=== PATIENT | female | born 1975 | race Caucasian/White ===

== ENCOUNTER 2020-09-03 17:00 | Outpatient (RCR) | payer OTHER, SELFPAY ==
--- NOTE | 2020-11-12 08:55 | MHC.PT.DC ---
[facility] [place] [facility] [place] [facility] [place] Office [address] Griselda Martinez [address] [phone] F: [phone] F: [phone] F: [phone] F: [phone] Physical Therapy Discharge Report Diagnosis: R sh pain Date of Surgery: Date of Evaluation: 07/24/20 Date of Discharge: Treatments to Date: 9 Cancellations to Date: 0 No Shows to Date: 0 Discharge Status: Discharge Summary: Pt elected to stop treatment at this time. She was receiving traction and reportedly feeling improvement in s/s. Electronically signed by: Toño Quezada PT Please sign and return to therapist. Thank you for your referral.
== END 2020-11-12 08:56 | disposition home or self-care (01) ==
LOC: HO.PTCHIC 17:00
PROVIDERS: PCP Internal Medicine; Visit Provider Internal Medicine
DX: M25.511 Pain in right shoulder (principal)
CPT/HCPCS: 97012; 97014; 97110; 97140

== ENCOUNTER 2020-10-17 15:52 | Outpatient (REF) | payer OTHER, SELFPAY ==
--- NOTE | 2020-10-17 17:04 | XR_ITS ---
EXAMINATION: XR THORACIC SPINE CLINICAL INFORMATION: There is sludge. COMPARISON: None TECHNIQUE: 3 views of the thoracic spine were obtained. FINDINGS: There is maintained in thoracic kyphosis. The vertebral heights, alignment and disc heights are normal. There is minimal scoliosis of dorsal spine. No lytic process seen. The paravertebral soft tissues are normal. XR/XR thoracic spine 3V IMPRESSION: Mild dorsal spine scoliosis. No visible acute fracture, dislocation or lytic process seen.
[2020-10-23 09:47] LABS: HPV mRNA E6/E7 rflx Not Detected (Not Detected)
== END 2020-10-17 15:53 | disposition home or self-care (01) ==
LOC: HO.LAB 15:52
PROVIDERS: PCP Internal Medicine; Referring Provider Internal Medicine; Visit Provider Advanced Practice Midwife
DX: Z01.419 Encounter for gynecological examination (general) (routine) without abnormal findings (principal); M54.9 Dorsalgia, unspecified; Z20.2 Contact with and (suspected) exposure to infections with a predominantly sexual mode of transmission; Z12.31 Encounter for screening mammogram for malignant neoplasm of breast
CPT/HCPCS: 72072; 87624; 87625; 88142

== ENCOUNTER 2020-10-17 16:48 | Outpatient (REF) | payer OTHER, SELFPAY ==
[2020-10-17 18:54] LABS: Syphilis Screen Nonreactive (Nonreactive)
[2020-10-18 11:07] LABS: BV Int Neg Control Negative (Negative); BV Int Pos Control Positive (Positive)
[2020-10-20 03:34] LABS: HBsAGNum1 0.21 S/CO (0.00-0.99); HIV AB/AG Nonreactive (Nonreactive); HIV Num 1 0.07 S/CO (0.00-0.99); Hepatitis B Surface Antigen Negative (Negative)
[2020-10-20 03:47] LABS: ~HepC Num1 0.11 S/CO (0.00-0.79); ~Hepatitis C Antibody Nonreactive (Nonreactive)
[2020-11-14 22:15] LABS: CT PCR NOT DETECTED (Not Detect.); NG PCR NOT DETECTED (Not Detect.)
== END 2020-10-17 16:49 | disposition home or self-care (01) ==
LOC: HO.LAB 16:48
PROVIDERS: PCP Internal Medicine; Referring Provider Internal Medicine; Visit Provider Advanced Practice Midwife
DX: Z20.2 Contact with and (suspected) exposure to infections with a predominantly sexual mode of transmission (principal)
CPT/HCPCS: 86780; 86803; 87340; 87389; 87480; 87491; 87510; 87591; 87660

== ENCOUNTER 2021-05-02 07:58 | Outpatient (REF) | payer OTHER, SELFPAY ==
--- NOTE | ~2021-05-02 | MM_ITS ---
EXAMINATION: MM SCREENING DIGITAL BREAST TOMOSYNTHESIS, BILATERAL CLINICAL INFORMATION: Screening. Asymptomatic. Status post breast reduction surgery. The lifetime risk of breast cancer based on the Tyrer-Cuzick Model is 10.6%. COMPARISON: Mammography: November 24, 2019 and September 13, 2018 TECHNIQUE: Digital breast tomosynthesis is performed in both the craniocaudal and mediolateral oblique views along with computer-aided detection (CAD). Synthesized 2D images are generated from the tomosynthesis. FINDINGS: There are scattered areas of fibroglandular density (ACR BI-RADS breast composition Category b). There are no significant masses, abnormal calcifications, or other abnormalities. There are some regions of scarring related to previous reduction mammoplasty. MM/MM tomosynthesis screening BI IMPRESSION: There are no significant changes from prior study. ASSESSMENT: BI-RADS 2: Benign RECOMMENDATION: Routine annual mammography screening. This patient's information was entered into a reminder system with a target due date for their next mammogram.
== END 2021-05-02 07:59 | disposition home or self-care (01) ==
LOC: HO.MAMMO 07:58
PROVIDERS: Visit Provider Internal Medicine
DX: Z12.31 Encounter for screening mammogram for malignant neoplasm of breast (principal)
CPT/HCPCS: 77063; 77067

== ENCOUNTER 2021-09-13 14:02 | Emergency (ER) | payer OTHER, SELFPAY ==
[2021-09-13 14:52] VITALS: BP 133/70; PULSE 86; RESP 16; TEMP 37; O2SAT 98; BMI 41.9
--- NOTE | 2021-09-13 15:01 | ED_ITS ---
HPI - SOB/Dyspnea General Chief Complaint: Dyspnea Stated Complaint: covid +, diff breathing Time Seen by Provider: 09/13/21 14:26 Source: patient Mode of arrival: ambulatory Limitations: no limitations History of Present Illness HPI Narrative: patient with nasal congestion on 09/02 and then tested positive. Still with fatigue and weakness Context: recent illness Severity: mild Related Data Home Medications Medication Instructions Recorded Confirmed levonorgestrel 20 mcg/24 hours (7 INTRAUTERINE 08/06/20 02/23/21 yrs) 52 mg intrauterine device (Mirena) melatonin 3 mg tablet 3 mg PO BEDTIME PRN 08/06/20 02/23/21 meloxicam 15 mg tablet 15 mg PO DAILY 08/06/20 02/23/21 pantoprazole 40 mg tablet,delayed 40 mg PO DAILY 08/06/20 02/23/21 release sucralfate 100 mg/mL oral 10 ml PO BID 08/06/20 02/23/21 suspension Previous Rx's Medication Instructions Recorded cyclobenzaprine 10 mg tablet 10 mg PO BEDTIME PRN 30 Days #30 12/03/20 tab gabapentin 100 mg capsule 100 mg PO BEDTIME 30 Days #30 cap 12/03/20 lactulose 10 gram/15 mL (15 mL) 10 g (15 mL) PO BEDTIME PRN 30 12/03/20 oral solution Days #600 ml phentermine 37.5 mg tablet 37.5 mg PO DAILY 30 Days #30 tab 12/03/20 zolpidem 5 mg tablet 5 mg PO BEDTIME PRN 30 Days #30 tab 08/27/21 benzonatate 100 mg capsule 100 mg PO TID PRN 7 Days #21 cap 09/07/21 Allergies Allergy/AdvReac Type Severity Reaction Status Date / Time oxycodone [From PERCOCET] Allergy Intermediate itchy Verified 02/23/21 18:05 Review of Systems Constitutional: Constitutional: Reports no additional constitutional complaints Eyes: Eyes: Reports no additional eye complaints ENT: Denies dizziness Cardiovascular: Cardiovascular: Reports no additional cardiovascular complaints Respiratory: Respiratory: Reports as per HPI Gastrointestinal: Gastrointestinal: Reports no additional gastrointestinal complaints Genitourinary: Genitourinary: Reports no additional female genitourinary complaints Musculoskeletal: Musculoskeletal: Reports no additional musculoskeletal complaints Integumentary/Breasts: Skin/Breast: Denies rash Neurologic: Reports system reviewed and no additional complaints, except as documented, Denies dizziness and Denies Sensory deficit (Neuro) Psychiatric: Psychiatric: Denies anxiety [facility] Past Medical History Medical History Back pain Constipation by delayed colonic transit GERD (gastroesophageal reflux disease) Insomnia Morbid obesity Surgical History H/O bilateral breast reduction surgery History of abdominoplasty History of History of removal of laparoscopic gastric banding device History of surgery on arm Hx of laparoscopic gastric banding Family History Family History Father HIV (human immunodeficiency virus infection) Mother Osteoporosis Hypertension Sister Crohn disease Fibromyalgia Maternal Grandmother CVD (cardiovascular disease) Stroke Maternal Grandfather Diabetes Prostate cancer Social History Social History Alcohol intake: never Advance Directives: No Advance Directives Information Provided: No Gender identity: Female Physical Exam Vital Signs: Vital Signs: Last Vital Signs Temp 98.6 F 09/13/21 14:52 Pulse 86 09/13/21 14:52 Resp 16 09/13/21 14:52 BP 133/70 09/13/21 14:52 Pulse Ox 98 09/13/21 14:52 Body Mass Index 41.9 Const: General: healthy appearing Nutritional Appearance: average body habitus Orientation/consciousness: oriented to person and patient oriented x3 Limitations: no limitations HENMT: Head: Yes normal to inspection Ears: external ears normal General nose exam: Normal external nose present Mouth: Normal oral and palatal mucosa present and oropharynx normal Throat: Yes posterior oropharynx normal Eyes: General: appearance normal, both eyes and all related structures Neck: Other: supple Neck: Yes normal visual inspection Chest: Chest palpation & inspection: normal inspection of the chest Resp: Auscultation: clear to auscultation bilaterally Cardio: Jugular venous distension: no JVD Rate: regular rate Rhythm: regular rhythm Heart sounds: S1 normal heart sound present and S2 normal heart sound present GI: Inspection: Yes normal to inspection Palpation (GI): Soft to palpation, nontender and No hepatosplenomegaly present Auscultation: normal bowel sounds : General: Yes no CVA tenderness Back/Spine/Pelvis: Back: no CVA tenderness Skin: General skin exam: no rashes or lesions noted Neuro: General: oriented to person and patient oriented x3 Cranial nerves: Yes CN's II-XII intact bilaterally Motor exam (neuro): 5/5 motor strength present throughout Sensory Exam: No Sensory deficit (Neuro) Extrem: General: Yes normal to inspection Psych: Appearance: grossly normal Course Reevaluation(s) Reevaluation #1: patient looking well, normal vitals and O2 saturation will dc home Time: 15:12 Discharge Plan Discharge Clinical Impression: COVID-19 Patient Disposition: Home, Self-Care Instructions: COVID-19 (Coronavirus Disease 2019) (ED) Prescriptions: No Action zolpidem 5 mg tablet 5 mg PO BEDTIME PRN (Reason: sleep) 30 Days Qty: 30 RF: 0 benzonatate 100 mg capsule 100 mg PO TID PRN (Reason: cough) 7 Days Qty: 21 RF: 0 phentermine 37.5 mg tablet 37.5 mg PO DAILY 30 Days Qty: 30 RF: 0 gabapentin 100 mg capsule 100 mg PO BEDTIME 30 Days Qty: 30 RF: 3 cyclobenzaprine 10 mg tablet 10 mg PO BEDTIME PRN (Reason: muscle spasm) 30 Days Qty: 30 RF: 3 lactulose 10 gram/15 mL (15 mL) solution 10 g PO BEDTIME PRN (Reason: constipation) 30 Days Qty: 600 RF: 3 pantoprazole 40 mg tablet,delayed release (DR/EC) 40 mg PO DAILY RF: 0 sucralfate 100 mg/mL suspension 10 ml PO BID RF: 0 meloxicam 15 mg tablet 15 mg PO DAILY RF: 0 Mirena 20 mcg/24 hours (5 yrs) 52 mg intrauterine device intrauterine RF: 0 melatonin 3 mg tablet 3 mg PO BEDTIME PRNRF: 0 Referrals: Kusum Jenkins MD [Primary Care Provider] - 1 week
== END 2021-09-13 16:00 | disposition home or self-care (01) ==
PROVIDERS: Emergency Provider Emergency Medicine; PCP Internal Medicine
DX: U07.1 COVID-19 (principal)
CPT/HCPCS: 99283

== ENCOUNTER 2022-02-16 14:26 | Outpatient (REF) | payer OTHER, SELFPAY ==
[2022-02-17 03:13] LABS: CT PCR NOT DETECTED (Not Detect.); NG PCR NOT DETECTED (Not Detect.)
[2022-02-17 12:09] LABS: BV Int Neg Control Negative (Negative); BV Int Pos Control Positive (Positive)
== END 2022-02-16 14:27 | disposition home or self-care (01) ==
LOC: HO.LAB 14:26
PROVIDERS: PCP Internal Medicine; Visit Provider Advanced Practice Midwife
DX: Z01.411 Encounter for gynecological examination (general) (routine) with abnormal findings (principal); N89.8 Other specified noninflammatory disorders of vagina; R32 Unspecified urinary incontinence
CPT/HCPCS: 87480; 87491; 87510; 87591; 87660

== ENCOUNTER 2022-03-16 08:42 | Outpatient (REF) | payer OTHER, SELFPAY ==
[2022-03-16 09:04] LABS: MANUAL DIFF FLAG NO
[2022-03-16 09:53] LABS: Basophils Percent Auto 0.6 % (0-2); Eosinophils Absolute Auto 0.1 X10*3/uL (0.0-0.4); Eosinophils Percent Auto 3.8 % (0-4); Hematocrit 42.9 % (37.0-47.0); Hemoglobin 13.6 g/dl (12.0-16.0); Imm Gran Abs Auto 0.01 X10*3/uL (0.00-0.03); Imm Gran Pct Auto 0.3 % (0.0-0.4); Lymphocytes Percent Auto 29.6 % (20-40); Mean Corpuscular HGB Conc 31.7 g/dl (31.0-35.0); Mean Corpuscular Hemoglobin 25.5 pg (27.0-33.0); Mean Corpuscular Volume 80.5 fL (80.0-98.0); Mean Platelet Volume 10.4 fL (9.4-12.3); Monocytes Absolute Auto 0.7 X10*3/uL (0.1-1.2); Monocytes Percent Auto 19.2 % (2-11); Neutrophils Absolute Auto 1.6 x10*3/uL (2.0-8.3); Neutrophils Percent Auto 46.5 % (45-73); Platelet Count 217 X10*3/uL (160-400); Red Blood Count 5.33 X10*6/uL (4.20-5.50); Red Cell Distribution Width 13.8 % (11.0-16.0); White Blood Count 3.4 X10*3/uL (4.8-10.8)
[2022-03-16 10:13] LABS: Alanine Aminotransferase 14 U/L (0-31); Albumin Level 4.1 g/dL (3.5-5.0); Alkaline Phosphatase 67 U/L (39-117); Anion Gap 10 (12-20); Aspartate Amino Transferase 14 U/L (5-31); Bilirubin Total 0.4 mg/dL (0.0-1.0); Blood Urea Nitrogen 15 mg/dL (9-16); Carbon Dioxide 28 mmol/L (22-29); Chloride 105 mmol/L (96-108); Cholesterol 153 mg/dL; Estimated Glomerular Filt Rate > 60; Glucose Fasting 105 mg/dL (60-99); HDL Cholesterol 37 mg/dL; LDL Cholesterol Calculated 104 mg/dl; Potassium 4.4 mmol/L (3.3-5.1); Sodium 139 mmol/L (135-145); Total Protein 7.1 g/dL (6.5-8.0); Triglycerides 64 mg/dL
[2022-03-22 13:57] LABS: Vitamin D 25-OH, D2 <4 ng/mL; Vitamin D 25-OH, D3 16 ng/mL; Vitamin D 25-OH, Total 16 ng/mL (30-100)
== END 2022-03-16 08:43 | disposition home or self-care (01) ==
LOC: HO.LAB 08:42
PROVIDERS: PCP Internal Medicine; Visit Provider Internal Medicine
DX: E66.01 Morbid (severe) obesity due to excess calories (principal); E78.5 Hyperlipidemia, unspecified; E55.9 Vitamin D deficiency, unspecified; D64.9 Anemia, unspecified
CPT/HCPCS: 36415; 80053; 80061; 82306; 84443; 85025

== ENCOUNTER 2022-06-19 08:16 | Outpatient (REF) | payer OTHER, SELFPAY ==
[2022-06-19 08:29] LABS: MANUAL DIFF FLAG NO
[2022-06-19 09:13] LABS: Basophils Percent Auto 0.6 % (0-2); Eosinophils Absolute Auto 0.2 X10*3/uL (0.0-0.4); Eosinophils Percent Auto 3.1 % (0-4); Hematocrit 41.1 % (37.0-47.0); Imm Gran Abs Auto 0.02 X10*3/uL (0.00-0.03); Imm Gran Pct Auto 0.4 % (0.0-0.4); Lymphocytes Absolute Auto 1.4 X10*3/uL (1.2-4.9); Lymphocytes Percent Auto 27.7 % (20-40); Mean Corpuscular HGB Conc 31.6 g/dl (31.0-35.0); Mean Corpuscular Hemoglobin 25.4 pg (27.0-33.0); Mean Corpuscular Volume 80.3 fL (80.0-98.0); Mean Platelet Volume 10.5 fL (9.4-12.3); Monocytes Absolute Auto 0.5 X10*3/uL (0.1-1.2); Monocytes Percent Auto 9.4 % (2-11); Neutrophils Percent Auto 58.8 % (45-73); Platelet Count 228 X10*3/uL (160-400); Red Blood Count 5.12 X10*6/uL (4.20-5.50); Red Cell Distribution Width 13.8 % (11.0-16.0); White Blood Count 5.1 X10*3/uL (4.8-10.8)
[2022-06-19 10:11] LABS: Free T4 (Free Thyroxine) 0.95 ng/dL (0.71-1.85); Thyroid Stimulating Hormone 4.43 uIU/mL (0.32-4.0)
[2022-06-21 17:12] LABS: Thyroglobulin Antibodies <1 IU/mL (< or = 1); Thyroid Peroxidase Antibodies 1 IU/mL (<9)
== END 2022-06-19 08:17 | disposition home or self-care (01) ==
LOC: HO.LAB 08:16
PROVIDERS: PCP Internal Medicine; Visit Provider Internal Medicine
DX: R79.89 Other specified abnormal findings of blood chemistry (principal); D64.9 Anemia, unspecified
CPT/HCPCS: 36415; 84439; 84443; 85025; 86376; 86800

== ENCOUNTER → 2022-09-14 07:23 | Outpatient (BNVA) | payer OTHER, SELFPAY | PROVIDERS: PCP Internal Medicine; Visit Provider Physician Assistant | DX: Z12.11 Encounter for screening for malignant neoplasm of colon (principal); K21.9 Gastro-esophageal reflux disease without esophagitis; K59.09 Other constipation | CPT/HCPCS: 99202; 99212 ==

== ENCOUNTER 2022-11-30 16:48 | Outpatient (REF) | payer OTHER, SELFPAY ==
[2022-11-30 18:37] LABS: Thyroid Stimulating Hormone 3.72 uIU/mL (0.32-4.0); Vitamin D 25-OH Total 15.7 ng/mL (>30)
== END 2022-11-30 16:49 | disposition home or self-care (01) ==
LOC: HO.LAB 16:48
PROVIDERS: PCP Internal Medicine; Visit Provider Internal Medicine
DX: E03.9 Hypothyroidism, unspecified (principal); E55.9 Vitamin D deficiency, unspecified
CPT/HCPCS: 36415; 82306; 84443

== ENCOUNTER 2022-12-18 07:37 | Outpatient (REF) | payer OTHER, SELFPAY ==
--- NOTE | ~2022-12-18 | MM_ITS ---
EXAMINATION: MM SCREENING DIGITAL BREAST TOMOSYNTHESIS, BILATERAL CLINICAL INFORMATION: Screening. Asymptomatic. Remote prior reduction mammoplasty, 2010. The lifetime risk of breast cancer based on the Tyrer-Cuzick Model is 12%. COMPARISON: Mammography: 05/02/2021, 11/24/2019, 09/13/2018 TECHNIQUE: Digital breast tomosynthesis is performed in both the craniocaudal and mediolateral oblique views along with computer-aided detection (CAD). Synthesized 2D images are generated from the tomosynthesis. FINDINGS: There are scattered areas of fibroglandular density (ACR BI-RADS breast composition Category b). There is fine fibronodular parenchymal pattern with some minor scarring consistent with the remote prior reduction mammoplasty. There are no abnormal calcifications. No interval architectural abnormality. There is subtle interval dominant nodular density central inner left breast mid depth. Patient will be recalled for additional imaging. MM/MM tomosynthesis screening BI IMPRESSION: Left: -Subtle interval dominant nodularity density central inner left breast mid depth. Right: -No mammographic evidence of malignancy. ASSESSMENT: BI-RADS 0: Incomplete - Need Additional Imaging Evaluation RECOMMENDATION: 1. Additional views of the left breast (spot CC, spot ML). 2. Targeted ultrasound if warranted after review of the additional views. 3. Radiology department staff will contact the patient for additional imaging. This patient's information was entered into a reminder system with a target due date for their next mammogram.
== END 2022-12-18 07:38 | disposition home or self-care (01) ==
LOC: HO.MAMMO 07:37
PROVIDERS: PCP Internal Medicine; Visit Provider Internal Medicine
DX: Z12.31 Encounter for screening mammogram for malignant neoplasm of breast (principal)
CPT/HCPCS: 77063; 77067

== ENCOUNTER 2022-12-29 08:17 | Outpatient (REF) | payer OTHER, SELFPAY ==
--- NOTE | ~2022-12-29 | MM_ITS ---
EXAMINATION: MM DIAGNOSTIC DIGITAL BREAST TOMOSYNTHESIS, LEFT US TARGETED BREAST, LEFT CLINICAL INFORMATION: New lobulated density about the inferomedial aspect of the left breast. History of breast reduction surgery. COMPARISON: Mammography: 12/18/2022 and studies dating back to September 13, 2018. TECHNIQUE: Digital breast tomosynthesis is performed. 2D images are generated from the tomosynthesis. The following views are obtained: 90 degree mediolateral view and spot compression views in mediolateral oblique projection and craniocaudal views. Targeted left breast ultrasound. FINDINGS: There are scattered areas of fibroglandular density (ACR BI-RADS breast composition Category b). Additional films demonstrate persistence of the lobular 10 x 7 mm density lying approximately 6 cm from the nipple. No spiculation is noted. No microcalcifications are appreciated. Targeted left breast ultrasound by the technologist and myself did not demonstrate any abnormal cystic or solid mass. No region of abnormal distal sound shadowing was appreciated. No edematous change within the parenchyma was seen. Results are discussed with the patient at time of visit. Possibility of 6 month follow-up study versus stereotactic core biopsy was discussed with the patient preferring to have the lesion biopsied at this point. The above recommendation was called to referring provider's office by the breast center patient navigator speaking to Kristyn. MM/MM tomosynthesis added views L IMPRESSION: Persistence of left breast density for which stereotactic core biopsy is recommended. ASSESSMENT: BI-RADS 4: Suspicious (subcategory 4A: Low suspicion for malignancy) RECOMMENDATION: Stereotactic core biopsy. This patient's information was entered into a reminder system with a target due date for their next mammogram.
== END 2022-12-29 08:18 | disposition home or self-care (01) ==
LOC: HO.MAMMO 08:17
PROVIDERS: PCP Internal Medicine; Visit Provider Internal Medicine
DX: R92.2 Inconclusive mammogram (principal); N64.89 Other specified disorders of breast
CPT/HCPCS: 76642; 77061; 77065

== ENCOUNTER 2023-01-04 09:02 | Outpatient (REF) | payer OTHER, SELFPAY ==
--- NOTE | ~2023-01-04 | MM_ITS ---
EXAMINATION: STEREOTACTIC TOMOSYNTHESIS-GUIDED VACUUM-ASSISTED BREAST BIOPSY, LEFT SPECIMEN RADIOGRAPH, LEFT POST PROCEDURE DIGITAL MAMMOGRAM, LEFT CLINICAL INFORMATION: Subcentimeter macrolobulated nodule central 8:00 left breast mid depth. No ultrasound correlate. COMPARISON: Mammography 12/29/2022, 12/18/2022, 11/24/2019; left breast ultrasound 12/29/2022. TECHNIQUE/PROCEDURE: Informed consent was obtained from the patient after discussion of the benefits, risks, and alternatives to biopsy today. Patient appeared to understand. Gave opportunity for questions. Patient signed consent form. BIOPSY TABLE: SiteMinder Affirm Prone Biopsy System. LESION: -Small macrolobulated nodule central 8:00 left breast mid depth. Differential considerations include fibroadenoma, PASH, apocrine metaplasia, intramammary node, other. LOCAL ANESTHESIA: 10 mL 1% lidocaine; 10 mL 1% lidocaine with epinephrine. DERMATOTOMY: Single skin homer dermatotomy performed. NEEDLE: ENDYMION Eviva 9-gauge vacuum assisted core biopsy device. APPROACH: Medial Lateral. TARGETING: Combination of digital breast tomosynthesis and stereotactic digital mammography used for targeting. CORES: 7. CLIP: Suros SecurMark Cylinder-shaped marker. SPECIMEN RADIOGRAPH: Specimen radiograph is taken in separate room using digital mammography. There are scattered parenchymal densities within the cores. POST PROCEDURE UNILATERAL DIGITAL MAMMOGRAM: The post biopsy mammogram is performed in separate room using separate digital mammography equipment from the biopsy procedure. CC and ML views are obtained. There are scattered areas of fibroglandular density (breast composition category: b). The clip marker is in expected position. No gross hematoma. The patient tolerated the procedure well. No immediate complications. Home instructions reviewed with the patient. Final pathology results are pending. MM/MM stereotactic biopsy LT IMPRESSION: 1. Digital tomosynthesis-guided core biopsy left breast with clip placement. 2. Specimen radiograph taken and post procedure mammogram. There is satisfactory positioning of the biopsy clip. 3. Final pathology results pending. An addendum report will be issued.
[2023-01-04] MEDS: Sodium Bicarbonate 8.4% 50 MEQ/50 ML VIAL SUBCUT (10:52)
[2023-01-04] MEDS: Lidocaine HCl 1 % 20 ML VIAL 10 ML SUBCUT (10:54)
[2023-01-04] MEDS: Lidocaine HCl 1% PF/Epi 1:200,000 30 ML VIAL 10 ML SUBCUT (10:56)
== END 2023-01-04 09:03 | disposition home or self-care (01) ==
LOC: HO.MAMMO 09:02
PROVIDERS: PCP Internal Medicine; Visit Provider Surgery
DX: R92.8 Other abnormal and inconclusive findings on diagnostic imaging of breast (principal)
CPT/HCPCS: 19081; 88305; 99202; A4648

== ENCOUNTER → 2023-01-11 14:13 | Outpatient (BNVA) | payer OTHER, SELFPAY | PROVIDERS: PCP Internal Medicine; Referring Provider Internal Medicine; Visit Provider Surgery | DX: N64.89 Other specified disorders of breast (principal) | CPT/HCPCS: 99212 ==

== ENCOUNTER 2023-01-19 06:59 | Day surgery (SDC) | payer OTHER, SELFPAY ==
[2023-01-13 15:02] VITALS: BMI 48.1
--- NOTE | 2023-01-18 13:01 | P.CONAN_ITS ---
Documented by User: Linn Mccracken NP 01/18/23 13:02 HPI - Anesthesia Eval Consult details Narrative: 47yo F for Left Breast Lumpectomy/Needle Loc PMFSH Active Problems Active Problems: All Active Problems (Updated 01/13/23 @ 14:57 by Celeste Mederos, RN) Potential exposure to STD (Acute) Screening for breast cancer (Acute) Well woman exam with routine gynecological exam (Acute) COVID-19 (Acute) Encounter for annual routine gynecological examination (Acute) Vaginal odor (Acute) Urinary incontinence (Acute) Hypothyroidism (Acute) Family history of cancer (Acute) Abdominal pain (Acute) Chronic constipation (Acute) Encounter for screening colonoscopy (Acute) Hypovitaminosis D (Acute) Abnormal mammogram of left breast (Acute) Radial scar of left breast (Acute) Hypovitaminosis D (Acute) Moderate major depression (Acute) Memory loss (Acute) Elevated TSH (Acute) Shortness of breath (Acute) Morbid obesity (Acute) Constipation by delayed colonic transit (Acute) GERD (gastroesophageal reflux disease) (Acute) Insomnia (Acute) Back pain (Acute) Past Medical History Medical History (Updated 01/13/23 @ 14:57 by Celeste Mederos, RN) Back pain Constipation by delayed colonic transit Elevated TSH GERD (gastroesophageal reflux disease) Hypothyroid Hypovitaminosis D Insomnia Memory loss Moderate major depression Morbid obesity Shortness of breath Snores Family History Family History Father HIV (human immunodeficiency virus infection) Mother Osteoporosis Hypertension Sister Crohn disease Fibromyalgia Maternal Grandmother CVD (cardiovascular disease) Stroke Maternal Grandfather Diabetes Prostate cancer Colon cancer Maternal Aunt History of breast cancer Maternal Aunt Endometrial cancer Maternal Uncle Pancreatic cancer Surgical History Surgical History (Updated 01/13/23 @ 14:43 by Celeste Mederos, RN) H/O bilateral breast reduction surgery History of abdominoplasty History of History of esophagogastroduodenoscopy (EGD) History of release of tendon History of removal of laparoscopic gastric banding device Hx of laparoscopic gastric banding Social History Social History Housing: House Are you a primary skin care consultant to a significant other at home: No Do you presently have visiting nurse or other home services: No Alcohol intake: current Alcohol type: beer and hard liquor Patient Tobacco Use Status: Former Tobacco user Quit Date: 2009 Tobacco use type: Cigarette e-Cigarette/Vaping Use: Never Used Second Hand Smoke Exposure: No Use of substances other than those prescribed or required for medical reasons: No Have you been hit, kicked, punched, or otherwise hurt by someone within the past year? If so, by whom?: No Are you DNR?: No Advance Directives: No Advance Directives Information Provided: Yes Advance Directives on File: No Recently lost weight without trying: No Eating poorly because of decreased appetite: No Nutrition Risks: No Nutritional Risk service: No Current occupational status: employed Current occupational exposures/hazards: No Gender identity: Female Cognitive needs: No Hearing needs: No Vision needs: Yes Meds Allergies Allergy/AdvReac Type Severity Reaction Status Date / Time oxycodone [From PERCOCET] Allergy Intermediate itchy Verified 01/11/23 14:25 Home Medications Medication Instructions Recorded Confirmed Last Taken Type levonorgestrel 20 mcg/24 hours (8 intrauterine 08/06/20 01/11/23 Unknown History yrs) 52 mg intrauterine device (Mirena) melatonin 3 mg tablet 3 mg PO BEDTIME PRN Sleep 08/06/20 01/13/23 Unknown History Exam Exam Date and Time: January 18, 2023 1301 Height,Weight and Vital Signs: Height 5 ft 5 in Weight 131.088 kg Assessment and Plan Assessment Anesthesia Assessment: Chart Reviewed Documented by User: Chloe Mckeon MD 01/19/23 10:38 [facility] Past Medical History Medical History (Updated 01/13/23 @ 14:57 by Celeste Mederos RN) Back pain Constipation by delayed colonic transit Elevated TSH GERD (gastroesophageal reflux disease) Hypothyroid Hypovitaminosis D Insomnia Memory loss Moderate major depression Morbid obesity Shortness of breath Snores Patient : No ( Menopausal / No priod for greater than one year) Family History Family History Father HIV (human immunodeficiency virus infection) Mother Osteoporosis Hypertension Sister Crohn disease Fibromyalgia Maternal Grandmother CVD (cardiovascular disease) Stroke Maternal Grandfather Diabetes Prostate cancer Colon cancer Maternal Aunt History of breast cancer Maternal Aunt Endometrial cancer Maternal Uncle Pancreatic cancer Family history of problems with anesthesia: No Surgical History Surgical History (Updated 01/13/23 @ 14:43 by Celeste Mederos RN) H/O bilateral breast reduction surgery History of abdominoplasty History of History of esophagogastroduodenoscopy (EGD) History of release of tendon History of removal of laparoscopic gastric banding device Hx of laparoscopic gastric banding History of Problems with Anesthesia: No Social History Social History Housing: House Are you a primary skin care consultant to a significant other at home: No Do you presently have visiting nurse or other home services: No Alcohol intake: current Alcohol type: beer and hard liquor Patient Tobacco Use Status: Former Tobacco user Quit Date: 2009 Tobacco use type: Cigarette e-Cigarette/Vaping Use: Never Used Second Hand Smoke Exposure: No Use of substances other than those prescribed or required for medical reasons: No Have you been hit, kicked, punched, or otherwise hurt by someone within the past year? If so, by whom?: No Are you DNR?: No Advance Directives: No Advance Directives Information Provided: Yes Advance Directives on File: No Recently lost weight without trying: No Eating poorly because of decreased appetite: No Nutrition Risks: No Nutritional Risk service: No Current occupational status: employed Current occupational exposures/hazards: No Gender identity: Female Cognitive needs: No Hearing needs: No Vision needs: Yes Meds Allergies Allergy/AdvReac Type Severity Reaction Status Date / Time oxycodone [From PERCOCET] Allergy Intermediate itchy Verified 01/11/23 14:25 Home Medications Medication Instructions Recorded Confirmed Last Taken Type levonorgestrel 20 mcg/24 hours (8 intrauterine 08/06/20 01/11/23 Unknown History yrs) 52 mg intrauterine device (Mirena) melatonin 3 mg tablet 3 mg PO BEDTIME PRN Sleep 08/06/20 01/13/23 Unknown History Exam Airway Mallampati Class: II TM Dist: >3cm Neck ROM: Full Loose/Missing/Broken Teeth: No Heart: rr Lungs: cta Assessment and Plan Final Anesthetic Review Family History of Problems with Anesthesia: No History of Problems with Anesthesia: No NPO: Yes ASA Class: III Final Preanesthetic Review: No Changes in Pt Med Stat, Meds/Allgs Chart Reviewed, Consent Obtained/Reviewed and Anes Risks/Benef Reviewed Patient Risk: Intermediate Procedure Risk: Low Anesthetic Plan Anesthetic Plan: GA Disposition: Standard PACU
--- NOTE | ~2023-01-19 | MM_ITS ---
EXAMINATION: MM MAMMOGRAM GUIDED NEEDLE LOCALIZATION BREAST, LEFT MM NEEDLE LOCALIZATION SPECIMEN FROM THE LEFT BREAST CLINICAL INFORMATION: Left breast radial scar COMPARISON: January 04, 2023 and studies dating back to May 02, 2021 TECHNIQUE NEEDLE LOC: Proper informed consent is obtained from the patient after discussion of the procedure, potential risks and complications, and alternatives including declining the procedure today. Patient was given an opportunity for questions. The patient appeared to understand. The patient consented to the procedure and signed the consent form. GUIDANCE: Digital mammography. APPROACH: Cranio-caudal. TARGET: Clip. ANESTHESIA: lidocaine 1%: 3 mL. LOCALIZATION MARKER: [place] [employer]. The skin is prepped and local anesthesia administered. The needle is positioned and position assessed with mammography. The wire is hooked into position. [place] needle protector placed. The patient tolerated the procedure well and had no immediate complication. TECHNIQUE SPECIMEN RADIOGRAPH: Imaging of the excised specimen is performed using digital mammography in 2 views. FINDINGS SPECIMEN RADIOGRAPH: The specimen shows the needle and hookwire are delivered intact. The biopsy clip is within the specimen.. Results were called to Dr. Eliceo Montalvo in the operating room at the time of imaging. MM/MM needle loc LT IMPRESSION: 1. Status post left breast needle localization with wire hooked into position. 2. Post operative specimen radiograph obtained.
[2023-01-19 07:28] VITALS: BP 116/68; PULSE 87; RESP 16; TEMP 37.1; O2SAT 97
--- NOTE | 2023-01-19 07:29 | MHC.SHP ---
Pre-Procedural Eval Section A Date of Service: 01/19/23 The patient is an INPATIENT: No Changes since office visit: Yes Patient answered all questions; No Cold of Flu in the past 2 weeks, No New Medical Problems and No Changes in Medication The History & Physical has been completed within 30 days and I have reviewed it.: Yes Section B Chief Complaint: Other specified disorders of breast Allergies: Allergies Allergy/AdvReac Type Severity Reaction Status Date / Time oxycodone [From PERCOCET] Allergy Intermediate itchy Verified 01/11/23 14:25 Plan Diagnosis/Plan: Unchanged I have reviewed the history and physical and performed a pertinent physical examination on my patient. No changes have occurred unless specified. Time Spent With Patient Time: Total time managing care of this patient today ____ minutes.
[2023-01-19 07:30] LABS: UPreg QC Valid YES; Urine Pregnancy NEGATIVE (NEGATIVE)
[2023-01-19] MEDS: Lactated Ringers 1,000 ML 100 ML IVCONT (09:26)
--- NOTE | 2023-01-19 10:46 | W.PM.OPN ---
Operative Note Operative Note Date of Service: 01/19/23 Narrative: Preoperative diagnosis: Radial scar left breast Postoperative diagnosis: Same Procedure: left breast lumpectomy with needle localization Surgeon: Eliceo Montalvo MD Wrong Address Clerk: Danae Arita PA-C Anesthesia: general LMA Indications for procedure: 47-year-old female patient presenting with a recent abnormal mammogram s/p core biopsy findings of radial scar. She presents today for wider excision to assure complete removal. Operative findings: Specimen x-ray confirms localizing clip and wire within the specimen. Specimen: Left breast lumpectomy Estimated blood loss: less than 2 mL Complications: none Procedure details: patient was brought to the OR placed in a supine position. After administering general anesthesia the patient's left breast was prepped with ChloraPrep and draped in a sterile fashion. A surgical time-out was called and the consent confirmed. Patient received preoperative antibiotics and Venodyne boots were in place. Local anesthesia consisting of 0.5% Sensorcaine with epinephrine was then infiltrated circumferentially along the lower inner quadrant at the nipple-areolar complex and along the localizing needle in the lower inner quadrant. A curvilinear incision was made at the margin of the areola from approximately 9-6 o'clock. This was carried out through subcutaneous tissue. Superior inferior skin flaps were then created. Using the localizing needle as a guide, electrocautery was used to dissect along the breast tissue around the localizing needle beginning at the medial margin working along the inferior margin, lateral margin, superior margin and finally posterior margin. The lesion was then brought up through the incision and the wire cut. Specimen was removed and sent to pathology for further examination. Margins were marked with a long suture on the lateral margin, short suture on the superior margin, and loop suture on the deep margin. Hemostasis was then assured using electrocautery. Wounds were irrigated with saline solution and suctioned dry. Deep breast tissue was then reapproximated with 3-0 Polysorb sutures. Superficial breast tissue and dermis were then reapproximated with 3-0 Polysorb sutures. Skin was closed using a running subcuticular 4-0 Polysorb suture. Steri-Strips, 2 x 2 gauze and Tegaderm were then applied. The patient tolerated the procedure well. Sponge, instrument, and needle counts reported as correct. Patient was transferred to PACU in stable condition.
[2023-01-19 10:58] VITALS: BP 88/39; PULSE 90; RESP 18; TEMP 36.3; O2SAT 94
[2023-01-19 11:03] VITALS: BP 97/46; PULSE 87; RESP 17; O2SAT 94
[2023-01-19 11:09] VITALS: BP 91/55; PULSE 88; RESP 17; O2SAT 95
[2023-01-19 11:13] VITALS: BP 96/51; PULSE 76; RESP 16; O2SAT 95
[2023-01-19 11:30] VITALS: BP 102/39; PULSE 77; RESP 16; TEMP 36.3; O2SAT 97
[2023-01-19] MEDS: Lidocaine HCl 1 % 20 ML VIAL 6 ML SUBCUT (12:04)
[2023-01-19] MEDS: Sodium Bicarbonate 8.4% 50 MEQ/50 ML VIAL SUBCUT (12:06)
== END 2023-01-19 11:55 | disposition home or self-care (01) ==
PROVIDERS: Nurse Practitioner; PCP Internal Medicine; Visit Provider Surgery
PROC: (CPT 19301; principal; 2023-01-19 09:10)
DX: N64.89 Other specified disorders of breast (principal); N62 Hypertrophy of breast; N60.12 Diffuse cystic mastopathy of left breast; E66.01 Morbid (severe) obesity due to excess calories; Z68.42 Body mass index [BMI] 45.0-49.9, adult; Z79.899 Other long term (current) drug therapy; Z88.8 Allergy status to other drugs, medicaments and biological substances; Z98.890 Other specified postprocedural states; Z98.84 Bariatric surgery status; Z87.891 Personal history of nicotine dependence
CPT/HCPCS: 19301; 19281; 81025; 88307; 88329; A4648; J0690; J2250; J2405; J3010

== ENCOUNTER 2023-01-20 10:59 | Outpatient (REF) | payer OTHER, SELFPAY ==
[2023-01-20 12:48] LABS: Alanine Aminotransferase 15 U/L (0-31); Albumin Level 4.2 g/dL (3.5-5.0); Alkaline Phosphatase 83 U/L (39-117); Anion Gap 12 (12-20); Aspartate Amino Transferase 16 U/L (5-31); Bilirubin Total 0.5 mg/dL (0.0-1.0); Blood Urea Nitrogen 14 mg/dL (9-16); Calcium 8.7 mg/dL (8.4-10.2); Carbon Dioxide 29 mmol/L (22-29); Chloride 105 mmol/L (96-108); Cholesterol 143 mg/dL; Estimated Glomerular Filt Rate > 60; Glucose Fasting 96 mg/dL (60-99); HDL Cholesterol 31 mg/dL; LDL Cholesterol Calculated 98 mg/dl; Potassium 4.6 mmol/L (3.3-5.1); Sodium 141 mmol/L (135-145); Total Protein 7.2 g/dL (6.5-8.0); Triglycerides 73 mg/dL
== END 2023-01-20 11:00 | disposition home or self-care (01) ==
LOC: HO.LAB 10:59
PROVIDERS: PCP Internal Medicine; Visit Provider Internal Medicine
DX: E66.01 Morbid (severe) obesity due to excess calories (principal); E78.5 Hyperlipidemia, unspecified
CPT/HCPCS: 36415; 80053; 80061

== ENCOUNTER → 2023-01-28 09:30 | Outpatient (BNVA) | payer OTHER, SELFPAY | PROVIDERS: PCP Internal Medicine; Visit Provider Surgery | DX: N64.89 Other specified disorders of breast (principal) | CPT/HCPCS: 99212 ==

== ENCOUNTER 2023-02-04 09:55 | Day surgery (SDC) | payer OTHER, SELFPAY ==
[2023-02-01 10:51] VITALS: BMI 47.3
--- NOTE | 2023-02-03 12:33 | P.CONAN_ITS ---
Documented by User: Linn Mccracken NP 02/03/23 12:35 HPI - Anesthesia Eval Consult details Narrative: 48yo F for Upper Endoscopy and Colonoscopy s/p left breast lumpectomy 01/2023 with MAC PMFSH Active Problems Active Problems: All Active Problems (Updated 02/02/23 @ 13:35 by Kusum Ribeiro MD) Physical exam (Acute) Potential exposure to STD (Acute) Screening for breast cancer (Acute) Well woman exam with routine gynecological exam (Acute) COVID-19 (Acute) Encounter for annual routine gynecological examination (Acute) Vaginal odor (Acute) Urinary incontinence (Acute) Hypothyroidism (Acute) Family history of cancer (Acute) Abdominal pain (Acute) Chronic constipation (Acute) Encounter for screening colonoscopy (Acute) Hypovitaminosis D (Acute) Abnormal mammogram of left breast (Acute) Radial scar of left breast (Acute) Hypovitaminosis D (Acute) Moderate major depression (Acute) Memory loss (Acute) Elevated TSH (Acute) Shortness of breath (Acute) Morbid obesity (Acute) Constipation by delayed colonic transit (Acute) GERD (gastroesophageal reflux disease) (Acute) Insomnia (Acute) Back pain (Acute) Past Medical History Medical History (Updated 02/02/23 @ 13:35 by Kusum Ribeiro MD) Back pain Constipation by delayed colonic transit Elevated TSH GERD (gastroesophageal reflux disease) Hypothyroid Hypovitaminosis D Insomnia Memory loss Moderate major depression Morbid obesity Shortness of breath Snores Family History Family History Father HIV (human immunodeficiency virus infection) Mother Osteoporosis Hypertension Sister Crohn disease Fibromyalgia Maternal Grandmother CVD (cardiovascular disease) Stroke Maternal Grandfather Diabetes Prostate cancer Colon cancer Maternal Aunt History of breast cancer Maternal Aunt Endometrial cancer Maternal Uncle Pancreatic cancer Family history of problems with anesthesia: No Surgical History Surgical History (Updated 02/02/23 @ 13:25 by Kusum Ribeiro MD) H/O bilateral breast reduction surgery History of abdominoplasty History of History of esophagogastroduodenoscopy (EGD) History of release of tendon History of removal of laparoscopic gastric banding device Hx of laparoscopic gastric banding S/P lumpectomy, left breast History of Problems with Anesthesia: No Social History Social History Housing: House Are you a primary care services manager to a significant other at home: No Do you presently have visiting nurse or other home services: No Alcohol intake: current Alcohol type: beer and hard liquor Patient Tobacco Use Status: Former Tobacco user Quit Date: 2009 Tobacco use type: Cigarette e-Cigarette/Vaping Use: Never Used Second Hand Smoke Exposure: No Use of substances other than those prescribed or required for medical reasons: No Are you DNR?: No Advance Directives: No Advance Directives Information Provided: Yes Recently lost weight without trying: No Nutrition Risks: No Nutritional Risk service: No Current occupational status: employed Current occupational exposures/hazards: No Gender identity: Female Cognitive needs: No Hearing needs: No Vision needs: Yes Meds Allergies Allergy/AdvReac Type Severity Reaction Status Date / Time oxycodone [From PERCOCET] Allergy Intermediate itchy Verified 02/02/23 13:06 Home Medications Medication Instructions Recorded Confirmed Last Taken Type levonorgestrel 21 mcg/24 hours (8 intrauterine 08/06/20 02/02/23 Unknown History yrs) 52 mg intrauterine device (Mirena) melatonin 3 mg tablet 3 mg PO BEDTIME PRN Sleep 08/06/20 02/02/23 Unknown History Exam Exam Date and Time: February 03, 2023 1233 Height,Weight and Vital Signs: Height 5 ft 5 in Weight 128.99 kg Pertinent Lab Results Pertinent Lab Results: Laboratory Tests 06/19/22 01/20/23 08:27 11:18 WBC 5.1 Hgb 13.0 Hct 41.1 Plt Count 228 Sodium 141 Potassium 4.6 Chloride 105 Carbon Dioxide 29 BUN 14 Creatinine 0.84 Assessment and Plan Assessment Anesthesia Assessment: Chart Reviewed Final Anesthetic Review Family History of Problems with Anesthesia: No History of Problems with Anesthesia: No Documented by User: Chloe Mckeon MD 02/04/23 13:34 [facility] Past Medical History Medical History (Updated 02/02/23 @ 13:35 by Kusum Ribeiro MD) Back pain Constipation by delayed colonic transit Elevated TSH GERD (gastroesophageal reflux disease) Hypothyroid Hypovitaminosis D Insomnia Memory loss Moderate major depression Morbid obesity Shortness of breath Snores Family History Family History Father HIV (human immunodeficiency virus infection) Mother Osteoporosis Hypertension Sister Crohn disease Fibromyalgia Maternal Grandmother CVD (cardiovascular disease) Stroke Maternal Grandfather Diabetes Prostate cancer Colon cancer Maternal Aunt History of breast cancer Maternal Aunt Endometrial cancer Maternal Uncle Pancreatic cancer Surgical History Surgical History (Updated 02/02/23 @ 13:25 by Kusum Ribeiro MD) H/O bilateral breast reduction surgery History of abdominoplasty History of History of esophagogastroduodenoscopy (EGD) History of release of tendon History of removal of laparoscopic gastric banding device Hx of laparoscopic gastric banding S/P lumpectomy, left breast Social History Social History Housing: House Are you a primary care services manager to a significant other at home: No Do you presently have visiting nurse or other home services: No Alcohol intake: current Alcohol type: beer and hard liquor Patient Tobacco Use Status: Former Tobacco user Quit Date: 2009 Tobacco use type: Cigarette e-Cigarette/Vaping Use: Never Used Second Hand Smoke Exposure: No Use of substances other than those prescribed or required for medical reasons: No Are you DNR?: No Advance Directives: No Advance Directives Information Provided: Yes Recently lost weight without trying: No Nutrition Risks: No Nutritional Risk service: No Current occupational status: employed Current occupational exposures/hazards: No Gender identity: Female Cognitive needs: No Hearing needs: No Vision needs: Yes Meds Allergies Allergy/AdvReac Type Severity Reaction Status Date / Time oxycodone [From PERCOCET] Allergy Intermediate itchy Verified 02/02/23 13:06 Home Medications Medication Instructions Recorded Confirmed Last Taken Type levonorgestrel 21 mcg/24 hours (8 intrauterine 08/06/20 02/02/23 Unknown History yrs) 52 mg intrauterine device (Mirena) melatonin 3 mg tablet 3 mg PO BEDTIME PRN Sleep 08/06/20 02/02/23 Unknown Hi story Exam Airway Mallampati Class: III
[2023-02-04 10:05] VITALS: BMI 47.4
[2023-02-04 10:13] LABS: UPreg QC Valid YES
[2023-02-04 10:14] LABS: Urine Pregnancy NEGATIVE (NEGATIVE)
[2023-02-04 10:19] VITALS: BP 115/54; PULSE 76; RESP 16; TEMP 37.2; O2SAT 98
--- NOTE | 2023-02-04 10:25 | MHC.SHP ---
Pre-Procedural Eval Section A Date of Service: 02/04/23 The patient is an INPATIENT: No The History & Physical has been completed within 30 days and I have reviewed it.: No Section B Chief Complaint: screening, reflux disease,constipation Details of Present Illness: screening, GERD, abd pain, bloating, constipation Relevant Family History (Specify if Yes): Yes Relevant Social History: Tobacco Use ( former smoker) Present Medications: see Short Stay Collaborative assessment Medical History: Significant History (Back pain Constipation by delayed colonic transit Elevated TSH GERD (gastroesophageal reflux disease) Hypovitaminosis D Insomnia Memory loss Moderate major depression Morbid obesity Shortness of breath) History of Previous Operations: Relevant previous surgery/procedure and date(s) (Back pain Constipation by delayed colonic transit Elevated TSH GERD (gastroesophageal reflux disease) Hypovitaminosis D Insomnia Memory loss Moderate major depression Morbid obesity Shortness of breath) Allergies: Allergies Allergy/AdvReac Type Severity Reaction Status Date / Time oxycodone [From PERCOCET] Allergy Intermediate itchy Verified 02/02/23 13:06 Review of Systems Sugical H&P ROS: Negative: Constitution, Cardiovascular and Respiratory and Yes, Specify: Gastrointestinal (GERD, constipation) Exam Surgical H&P Exam: Normal: Heart, Normal: Lungs, Normal: Extremities and Normal: Abdomen Plan Diagnosis/Plan: Unchanged I have reviewed the history and physical and performed a pertinent physical examination on my patient. No changes have occurred unless specified. Time Spent With Patient Time: Total time managing care of this patient today ____ minutes.
[2023-02-04] MEDS: Lactated Ringers 1,000 ML 100 ML IVCONT (10:34)
--- NOTE | 2023-02-04 11:07 | W.PM.OPN ---
Operative Note Operative Note Date of Service: 02/04/23 Narrative: FLEXIBLE TRANSORAL UPPER GASTROINTESTINAL ENDOSCOPY WITH BIOPSIES AND COLONOSCOPY TILL CECUM WITH BIOPSIES AND SNARE POLYPECTOMY Pre-op diagnosis: Colon cancer screening, family history of colon cancer, GERD Post-op diagnosis:? GERD, Gastritis, Colon polyps, diverticulosis, hemorrhoids Endoscopist:??Isaiah Richardson MD Anesthesia:?MAC UPPER ENDOSCOPY Consent: Indications for the procedure and potential complications of bleeding, perforation, reaction to medications and missed diagnosis were discussed with the patient and informed consent was obtained. Instrument: Olympus GIF H 190 mid size upper endoscope Monitoring: Vital signs and clinical assessment, continuous EKG monitoring, Pulse oximetry, Carbon Dioxide monitoring and blood pressure monitoring were done throughout the procedure. Procedure: The patient was placed in the left lateral decubitis position and pre-procedure medications were administered and a bite block was placed. The endoscope was inserted into the mouth and advanced under direct vision to the third part of duodenum. A careful inspection was made as the upper endoscope was withdrawn including a retroflexed examination of the proximal stomach; Findings and interventions are described below. Findings: Larynx: Normal Esophagus: GE junction at 35 cms, hiatal hernia 35 to 38 cms. No esophagitis or Junior's. Stomach: Mild gastric erythema. Biopsies were obtained. Grade 3 flap valve on retroflexed examination of the cardia. Duodenum: Normal bulb and descending duodenum. Biopsies were obtained to check for celiac sprue. Intervention: Biopsies as noted above COLONOSCOPY PROCEDURE NOTE Consent: Indications for the procedure and potential complications of bleeding, perforation, reaction to medications and missed diagnosis were discussed with the patient and informed consent was obtained. Instrument: Olympus PCF H 190 L variable stiffness pediatric colonoscope Monitoring: Vital signs and clinical assessment, intermittent blood pressure monitoring, continuous EKG monitoring, Pulse oximetry and Carbon Dioxide monitoring were done throughout the procedure. Colon withdrawl time was 19 minutes. Procedure: The patient was placed in the left lateral decubitis position and pre-procedure medications were administered. After a digital rectal examination of the ano-rectum, the video colonoscope was inserted into the rectum and advanced through the colon to the cecum. The colonoscope was slowly withdrawn in a retrograde panoramic fashion and the colon mucosa was carefully examined including a retroflexed view of the rectum. Findings and interventions are described below. Procedure Difficulty: : Without difficulty Findings: Terminal Ileum: Not evaluated Cecum: Normal Ascending Colon: Normal Transverse Colon: Normal Descending Colon: Two 5 to 8 diminutive apearing polyps removed with a cold bx Sigmoid Colon: Moderate diverticulosis Rectum: Normal Ano-rectum: Moderate internal hemorrhoids Colon preparation: Good Impression and Post Procedure Diagnosis: Endoscopy Findings: ESOPHAGUS: Hiatal hernia STOMACH: Gastritis DUODENUM: Normal - biopsied to check for celiac sprue Colonoscopy Findings: Two small polyps removed Moderate diverticulosis seen in the sigmoid colon Moderate hemorrhoids on retroflexed exam. Plan: Await pathology results Patient has an appointment on 02/17/23 in the GI Clinic with FELIX Dunn. Repeat Colonoscopy interval based on path results - in 5 years if polyps are adenomatous and due to family history of colon cancer. Above findings were reviewed with the patient and GERD, hiatal hernia, colon polyps and diverticulosis handouts were given in the discharge area
--- NOTE | 2023-02-04 11:57 | P.CONAN_ITS ---
[facility] Active Problems Active Problems: All Active Problems (Updated 02/02/23 @ 13:35 by Kusum Ribeiro MD) Physical exam (Acute) Potential exposure to STD (Acute) Screening for breast cancer (Acute) Well woman exam with routine gynecological exam (Acute) COVID-19 (Acute) Encounter for annual routine gynecological examination (Acute) Vaginal odor (Acute) Urinary incontinence (Acute) Hypothyroidism (Acute) Family history of cancer (Acute) Abdominal pain (Acute) Chronic constipation (Acute) Encounter for screening colonoscopy (Acute) Hypovitaminosis D (Acute) Abnormal mammogram of left breast (Acute) Radial scar of left breast (Acute) Hypovitaminosis D (Acute) Moderate major depression (Acute) Memory loss (Acute) Elevated TSH (Acute) Shortness of breath (Acute) Morbid obesity (Acute) Constipation by delayed colonic transit (Acute) GERD (gastroesophageal reflux disease) (Acute) Insomnia (Acute) Back pain (Acute) Past Medical History Medical History (Updated 02/02/23 @ 13:35 by Kusum Ribeiro MD) Back pain Constipation by delayed colonic transit Elevated TSH GERD (gastroesophageal reflux disease) Hypothyroid Hypovitaminosis D Insomnia Memory loss Moderate major depression Morbid obesity Shortness of breath Snores Family History Family History Father HIV (human immunodeficiency virus infection) Mother Osteoporosis Hypertension Sister Crohn disease Fibromyalgia Maternal Grandmother CVD (cardiovascular disease) Stroke Maternal Grandfather Diabetes Prostate cancer Colon cancer Maternal Aunt History of breast cancer Maternal Aunt Endometrial cancer Maternal Uncle Pancreatic cancer Family history of problems with anesthesia: No Surgical History Surgical History (Updated 02/02/23 @ 13:25 by Kusum Ribeiro MD) H/O bilateral breast reduction surgery History of abdominoplasty History of History of esophagogastroduodenoscopy (EGD) History of release of tendon History of removal of laparoscopic gastric banding device Hx of laparoscopic gastric banding S/P lumpectomy, left breast History of Problems with Anesthesia: No Social History Social History Housing: House Are you a primary veterinarian laboratory animal care to a significant other at home: No Do you presently have visiting nurse or other home services: No Alcohol intake: current Alcohol type: beer and hard liquor Patient Tobacco Use Status: Former Tobacco user Quit Date: 2009 Tobacco use type: Cigarette e-Cigarette/Vaping Use: Never Used Second Hand Smoke Exposure: No Use of substances other than those prescribed or required for medical reasons: No Are you DNR?: No Advance Directives: No Advance Directives Information Provided: Yes Recently lost weight without trying: No Nutrition Risks: No Nutritional Risk service: No Current occupational status: employed Current occupational exposures/hazards: No Gender identity: Female Cognitive needs: No Hearing needs: No Vision needs: Yes Meds Allergies Allergy/AdvReac Type Severity Reaction Status Date / Time oxycodone [From PERCOCET] Allergy Intermediate itchy Verified 02/02/23 13:06 Active Medications: Current Medications Lactated Ringer's (Lr) 1,000 mls @ 100 mls/hr IVCONT .Q10H MARCELLE Last Admin: 02/04/23 10:34 Dose: 100 mls/hr Home Medications Medication Instructions Recorded Confirmed Last Taken Type levonorgestrel 21 mcg/24 hours (8 intrauterine 08/06/20 02/02/23 Unknown History yrs) 52 mg intrauterine device (Mirena) melatonin 3 mg tablet 3 mg PO BEDTIME PRN Sleep 08/06/20 02/02/23 Unknown History Exam Exam Date and Time: February 04, 2023 1157 Height,Weight and Vital Signs: Height 5 ft 5 in Weight 129.274 kg Last Vital Signs Temp 99.0 F 02/04/23 10:19 Pulse 76 02/04/23 10:19 Resp 16 02/04/23 10:19 BP 115/54 L 02/04/23 10:19 Pulse Ox 98 02/04/23 10:19 O2 Del Method Room Air 02/04/23 10:19 Pertinent Lab Results Pertinent Lab Results: Laboratory Tests 02/04/23 09:57 Urine Test NEGATIVE Airway Mallampati Class: III TM Dist: >3cm Neck ROM: Full Loose/Missing/Broken Teeth: No Heart: rr Lungs: cta Assessment and Plan Assessment Anesthesia Assessment: Anesthesia Plan Discussed Final Anesthetic Review Family History of Problems with Anesthesia: No History of Problems with Anesthesia: No NPO: Yes ASA Class: III Final Preanesthetic Review: No Changes in Pt Med Stat, Meds/Allgs Chart Reviewed, Consent Obtained/Reviewed and Anes Risks/Benef Reviewed Patient Risk: Low Procedure Risk: Low Anesthetic Plan Anesthetic Plan: MAC: Disposition: Standard PACU
[2023-02-04 12:08] VITALS: BP 98/49; PULSE 88; RESP 18; TEMP 37.5; O2SAT 99
[2023-02-04 12:22] VITALS: BP 123/69; PULSE 72; RESP 18; TEMP 37; O2SAT 98
== END 2023-02-04 13:15 | disposition home or self-care (01) ==
PROVIDERS: Nurse Practitioner; PCP Internal Medicine; Visit Provider Internal Medicine Gastroenterology
PROC: (CPT 45385; principal; 2023-02-04 11:00)
DX: Z12.11 Encounter for screening for malignant neoplasm of colon (principal); K63.5 Polyp of colon; K57.30 Diverticulosis of large intestine without perforation or abscess without bleeding; K64.8 Other hemorrhoids; K59.01 Slow transit constipation; K21.9 Gastro-esophageal reflux disease without esophagitis; K29.50 Unspecified chronic gastritis without bleeding; K44.9 Diaphragmatic hernia without obstruction or gangrene; E66.01 Morbid (severe) obesity due to excess calories; Z68.42 Body mass index [BMI] 45.0-49.9, adult; R94.6 Abnormal results of thyroid function studies; E55.9 Vitamin D deficiency, unspecified; F33.1 Major depressive disorder, recurrent, moderate; R41.3 Other amnesia; R06.02 Shortness of breath; M54.9 Dorsalgia, unspecified; Z79.899 Other long term (current) drug therapy; Z88.8 Allergy status to other drugs, medicaments and biological substances; Z98.84 Bariatric surgery status; Z87.891 Personal history of nicotine dependence
CPT/HCPCS: 45385; 45380; 43239; 81025; 88305; 88342; J2250

== ENCOUNTER → 2023-02-17 08:08 | Outpatient (BNVA) | payer OTHER, SELFPAY | PROVIDERS: PCP Internal Medicine; Referring Provider Internal Medicine; Visit Provider Physician Assistant | DX: K63.5 Polyp of colon (principal); K57.90 Diverticulosis of intestine, part unspecified, without perforation or abscess without bleeding; K64.9 Unspecified hemorrhoids; K21.9 Gastro-esophageal reflux disease without esophagitis | CPT/HCPCS: 99212 ==

== ENCOUNTER → 2023-02-18 11:07 | Outpatient (BNVA) | payer OTHER, SELFPAY | PROVIDERS: PCP Internal Medicine; Visit Provider Surgery | DX: N64.89 Other specified disorders of breast (principal); Z80.9 Family history of malignant neoplasm, unspecified | CPT/HCPCS: 99212 ==

== ENCOUNTER 2023-06-08 08:10 | Outpatient (AMB) | payer OTHER, SELFPAY ==
--- NOTE | 2023-06-08 08:17 | A.OFFPC_ITS ---
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 Accompanied by: Self / Same As Patient Allergies oxycodone [From PERCOCET] Allergy (Intermediate, Verified 06/08/23 08:30) itchy Medication List - Last Reconciled 06/08/23 by Kusum Ribeiro MD bupropion HCl 150 mg PO QAM 90 days cholecalciferol (vitamin D3) 125 mcg PO DAILY 90 days clotrimazole 1% 1 appl topical BID 4 weeks cyclobenzaprine 10 mg PO BEDTIME PRN 90 days dicyclomine 20 mg PO TID 30 days docusate sodium (Colace) 200 mg (2 x 100 mg) PO BEDTIME lactulose 10 grams (15 mL) PO BEDTIME PRN 30 days levonorgestrel (Mirena) intrauterine levothyroxine 25 mcg PO DAILY 90 days melatonin 3 mg PO BEDTIME PRN methylcellulose (laxative) (Citrucel) 500 mg PO TID omeprazole 20 mg PO DAILY 90 days zolpidem 10 mg PO BEDTIME PRN 30 days Tobacco use date assessed: 12/06/22 Dental Screening Dental Screen Date: 06/08/23 Did you have a dental visit in the last 12 months?: Yes Did you have a dental problem in the last 6 months where you did not have access to dental care?: No Was dental information given to patient?: Patient has dentist HPI HPI Comments History of Present Illness Details This is a 48-year-old female with moderate major depression, morbid obesity, hypothyroidism and constipation that comes today for follow-up on her conditions. Depression stable with bupropion. She is morbidly obese with a BMI of 46.6 and declines weight loss referral. TSH will be ordered to be done today. Constipation stable with medications as needed. No chest pain or shortness of breath. [facility] Medical History (Updated 06/08/23 @ 08:36 by Kusum Ribeiro MD) Back pain Constipation by delayed colonic transit Elevated TSH GERD (gastroesophageal reflux disease) Hypothyroid Hypovitaminosis D Insomnia Memory loss Moderate major depression Morbid obesity Shortness of breath Snores Surgical History H/O bilateral breast reduction surgery History of abdominoplasty History of History of esophagogastroduodenoscopy (EGD) History of release of tendon History of removal of laparoscopic gastric banding device Hx of colonoscopy Hx of laparoscopic gastric banding S/P lumpectomy, left breast Family History Father HIV (human immunodeficiency virus infection) Mother Osteoporosis Hypertension Sister Crohn disease Fibromyalgia Maternal Grandmother CVD (cardiovascular disease) Stroke Maternal Grandfather Diabetes Prostate cancer Colon cancer Maternal Aunt History of breast cancer Maternal Aunt Endometrial cancer Maternal Uncle Pancreatic cancer Social History (Updated 06/08/23 @ 08:33 by Kusum Ribeiro MD) Housing: House Are you a primary home health care physician to a significant other at home: No Do you presently have visiting nurse or other home services: No Alcohol intake: current Alcohol intake frequency: holidays/special occasions only Alcohol type: beer and hard liquor Patient Tobacco Use Status: Former Tobacco user Quit Date: 2009 Tobacco use type: Cigarette e-Cigarette/Vaping Use: Never Used Second Hand Smoke Exposure: No service: No Current occupational status: employed 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 Josh Keita, Shani Haro, Rocky Sotelo and colleagues, with an educational monica from [employer]. Review of Systems Const All systems reviewed & are unremarkable except as noted in HPI and below Eyes Reports no additional complaints, Denies change in vision and Denies other visual disturbances Card Denies chest pain at rest, Denies chest pain with activity, Denies edema, Denies irregular heart rhythm, Denies claudication, Denies dyspnea, Denies dyspnea on exertion, Denies orthopnea, Denies paroxysmal nocturnal dyspnea and Denies slow heart rate Resp Denies cough, Denies dyspnea and Denies dyspnea on exertion GI Denies abdominal pain, Denies change in bowel habits, Denies excessive flatus, Denies nausea and Denies vomiting Denies urinary incontinence, Denies urinary hesitancy and Denies urinary urgency Musc Denies abnormal gait, Denies atrophy, Denies deformity and Denies limited range of motion Skin/Breast Denies bleeding lesions, Denies changing lesions and Denies rash Neuro Denies abnormal gait and Denies lack of coordination Physical exam (Primary Care) Vital Signs: Last Vital Signs BP 132/76 06/08/23 08:21 BMI result Body Mass Index 46.6 Tobacco/Smoking Status: Tobacco use Status Tobacco use date assessed 12/06/22 06/08/23 08:21 Patient Tobacco Use Status Former Tobacco user 06/08/23 08:33 Tobacco use type Cigarette 06/08/23 08:33 e-Cigarette/Vaping Use Never Used 06/08/23 08:33 Thrive Assessment: Date of Thrive Assessment Date Thrive assessed 02/02/23 06/08/23 08:21 Eyes General: appearance normal, both eyes and all related structures Eyelids: Yes eyelids normal Conjunctivae: conjunctivae normal Neck Neck: Yes normal visual inspection and Yes supple Resp Effort & Inspection: normal respiratory effort Auscultation: clear to auscultation bilaterally Cardio Jugular venous distension: no JVD Rate: regular rate Rhythm: regular rhythm Heart sounds: S1 normal heart sound present and S2 normal heart sound present Extrem General: Yes full ROM Assessment and Plan Assessment & Plan (1) Moderate major depression: Code(s): F32.1 - Major depressive disorder, single episode, moderate Plan: Continue bupropion. (2) Morbid obesity: Code(s): E66.01 - Morbid (severe) obesity due to excess calories Plan: Patient declines weight loss surgery. Start diet and exercise. BMI goal is less than 30. (3) Constipation by delayed colonic transit: Code(s): K59.01 - Slow transit constipation Plan: Start high-fiber diet. Continue docusate as needed. (4) Hypothyroidism: Code(s): E03.9 - Hypothyroidism, unspecified Plan: Continue levothyroxine. Monitor TSH. Orders: Orders Thyroid Stimulating Hormone Today E03.9 - Hypothyroidism, unspecified Magnesium Today R25.2 - Cramp and spasm Potassium Today R25.2 - Cramp and spasm Vitamin D 25-OH Total Today E55.9 - Vitamin D deficiency, unspecified Medications: Refilled cyclobenzaprine 10 mg PO BEDTIME 90 days PRN 90 tabs 0RF muscle spasm zolpidem 10 mg PO BEDTIME 30 days PRN 30 tabs 0RF insomnia Coding Level of Care Code Est Pt Level 4 (85896) Diagnoses Moderate major depression F32.1 Morbid obesity E66.01 Constipation by delayed colonic transit K59.01 Hypothyroidism E03.9 Time Spent (min) 22
[2023-06-08 08:21] VITALS: BP 132/76; BMI 46.6
== END 2023-06-08 08:43 | disposition home or self-care (01) ==
PROVIDERS: PCP Internal Medicine; Visit Provider Internal Medicine
DX: E03.9 Hypothyroidism, unspecified (principal); F32.1 Major depressive disorder, single episode, moderate; E66.01 Morbid (severe) obesity due to excess calories; Z68.42 Body mass index [BMI] 45.0-49.9, adult; K59.01 Slow transit constipation
CPT/HCPCS: 99214

== ENCOUNTER 2023-06-13 15:46 | Outpatient (REF) | payer OTHER, SELFPAY ==
[2023-06-13 17:15] LABS: Magnesium 2.3 mg/dL (1.6-2.6); Potassium 3.6 mmol/L (3.3-5.1)
[2023-06-13 17:19] LABS: Thyroid Stimulating Hormone 2.48 uIU/mL (0.32-4.0); Vitamin D 25-OH Total 20.3 ng/mL (>30)
== END 2023-06-13 15:47 | disposition home or self-care (01) ==
LOC: HO.LAB 15:46
PROVIDERS: PCP Internal Medicine; Visit Provider Internal Medicine
DX: E55.9 Vitamin D deficiency, unspecified (principal); E03.9 Hypothyroidism, unspecified; R25.2 Cramp and spasm
CPT/HCPCS: 36415; 82306; 83735; 84132; 84443

== ENCOUNTER 2023-07-04 11:26 | Outpatient (REF) | payer OTHER, SELFPAY ==
[2023-07-04 18:44] LABS: CT PCR NOT DETECTED (Not Detect.); NG PCR NOT DETECTED (Not Detect.)
[2023-07-05 09:28] LABS: BV Int Neg Control Negative (Negative); BV Int Pos Control Positive (Positive)
== END 2023-07-04 11:27 | disposition home or self-care (01) ==
LOC: HO.LNP 11:26
PROVIDERS: PCP Internal Medicine; Visit Provider Advanced Practice Midwife
DX: N89.8 Other specified noninflammatory disorders of vagina (principal); Z97.5 Presence of (intrauterine) contraceptive device
CPT/HCPCS: 0353U; 87480; 87510; 87660; 99212

== ENCOUNTER 2023-07-04 11:26 | Outpatient (AMB) | payer OTHER, SELFPAY ==
--- NOTE | 2023-07-04 11:41 | MHC.OFFVIS ---
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 Information Interpreted: non-clinical & clinical Floor And Wall Applier Liquid: Floor And Wall Applier Liquid Present (Aidyn) Allergies oxycodone [From PERCOCET] Allergy (Intermediate, Verified 07/04/23 11:44) itchy Medication List - Last Reconciled 07/04/23 by Jane Guzmán CNM bupropion HCl 150 mg PO QAM 90 days cholecalciferol (vitamin D3) 125 mcg PO DAILY 90 days clotrimazole 1% 1 appl topical BID 4 weeks cyclobenzaprine 10 mg PO BEDTIME PRN 90 days dicyclomine 20 mg PO TID 30 days docusate sodium (Colace) 200 mg (2 x 100 mg) PO BEDTIME lactulose 10 grams (15 mL) PO BEDTIME PRN 30 days levonorgestrel (Mirena) intrauterine levothyroxine 25 mcg PO DAILY 90 days melatonin 3 mg PO BEDTIME PRN methylcellulose (laxative) (Citrucel) 500 mg PO TID omeprazole 20 mg PO DAILY 90 days zolpidem 10 mg PO BEDTIME PRN 30 days Is last menstrual period known: No (Mirena) Post menopausal: No HPI Vaginal odor HPI Details Patient feels she is getting recurrent bacterial vaginosis she has been using pills that she got online she thinks there boric acid but it keeps coming back. It is worse after having sex with her . She has a Mirena IU S and she is not sure how long it has been in their researched done during the visit with her shows that it was inserted 08/23/2018 and that was her 2nd 1. She has a history of a previous at 11 years ago and her 1st Mirena was inserted after that baby was born. She has a history of an abnormal Pap smear in January of 2014 that showed ASCUS with HPV negative and her Pap smear after that was negative both in March of 2017 and October of 2020. She gets periods about twice a year. She had gastric sleeve surgery done 2 years ago and lost weight and gained it right back again. She last used something to treat the suppose id BV around 3 weeks ago she is not really having symptoms today but she has become concerned about any discharge she has at all. [facility] Medical History Back pain Constipation by delayed colonic transit Elevated TSH GERD (gastroesophageal reflux disease) Hypothyroid Hypovitaminosis D Insomnia Memory loss Moderate major depression Morbid obesity Shortness of breath Snores Surgical History H/O bilateral breast reduction surgery History of abdominoplasty History of History of esophagogastroduodenoscopy (EGD) History of release of tendon History of removal of laparoscopic gastric banding device Hx of colonoscopy Hx of laparoscopic gastric banding S/P lumpectomy, left breast Family History Father HIV (human immunodeficiency virus infection) Mother Osteoporosis Hypertension Sister Crohn disease Fibromyalgia Maternal Grandmother CVD (cardiovascular disease) Stroke Maternal Grandfather Diabetes Prostate cancer Colon cancer Maternal Aunt History of breast cancer Maternal Aunt Endometrial cancer Maternal Uncle Pancreatic cancer Social History Housing: House Are you a primary infant caregiver to a significant other at home: No Do you presently have visiting nurse or other home services: No Alcohol intake: current Alcohol intake frequency: holidays/special occasions only Alcohol type: beer and hard liquor Patient Tobacco Use Status: Former Tobacco user Quit Date: 2009 Tobacco use type: Cigarette e-Cigarette/Vaping Use: Never Used Second Hand Smoke Exposure: No service: No Current occupational status: employed 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 External Female Exam: normal external appearance and normal appearance of the urethra Speculum Exam - Vagina: normal appearance of the vagina and normal vaginal discharge Speculum Exam - Cervix: normal appearance of the cervix and Cervical os closed Results Reviewed Results Reviewed: Name: Mckenna Zhao Age/Sex: 47/F : 1975 Unit#: [id number] Attend Dr: Leila Fishman CNM Re02/16/22 Status: DEP REF Location: .LAB Disch: SPEC : [id number] SANDRO: 02/16/22-UNK STATUS: COMP REQ : [id number] RECD: 02/17/22-[address]: Leila Fishman CNM COMP: 02/17/22-1209 ENTERED: 02/16/22-[address]: Kusum Jenkins MD ORDERED: BV Panel Test Result Flag Reference Site Trichomonas DNA Negative Negative Gardnerella DNA Positive A Negative Jennifer DNA Negative Negative Name:?Mckenna ZhaoSpecimen #:?[id number]/Sex: 45/FAttending: Eva Kruger CNMDOB: 1975Submitted by: Eva Kruger CNMAccount #: [id number]: 10/17/20MR #: [id number]: 10/20/20tatus: DEP REFLocation: .LAB Interpretation Satisfactory for evaluation. No endocervical cells seen. Negative for intraepithelial lesion or malignancy. HPV mRNA E6/E7: NOT DETECTED This assay detects E6/E7 viral messenger RNA (mRNA) from 14 high-risk HPV types (16, 18, 31, 33, 35, 39, 45, 51, 52, 56, 58, 59, 66, 68) HPV testing performed by [facility], [place], [place].? See reference laboratory portion of the EMR for entire report. Assessment & Plan Assessment & Plan (1) Presence of 52 mg levonorgestrel-releasing intrauterine device (IUD): Comment: This 1 was placed in August of 2018, Code(s): Z97.5 - Presence of (intrauterine) contraceptive device (2) Problematic vaginal discharge: Comment: Patient complains of recurrent BV symptoms issues discussed in great detail condoms recommended if possible. Metronidazole gel script sent for p.r.n. rare use. Code(s): N89.8 - Other specified noninflammatory disorders of vagina Plan Patient feels she is getting recurrent bacterial vaginosis she has been using pills that she got online she thinks there boric acid but it keeps coming back. It is worse after having sex with her . She has a Mirena IU S and she is not sure how long it has been in their researched done during the visit with her shows that it was inserted 08/23/2018 and that was her 2nd 1. She has a history of a previous at 11 years ago and her 1st Mirena was inserted after that baby was born. She has a history of an abnormal Pap smear in January of 2014 that showed ASCUS with HPV negative and her Pap smear after that was negative both in March of 2017 and October of 2020. She gets periods about twice a year. She had gastric sleeve surgery done 2 years ago and lost weight and gained it right back again. She last used something to treat the suppose id BV around 3 weeks ago she is not really having symptoms today but she has become concerned about any discharge she has at all. Discussed the many things that can contribute to bacterial vaginosis and that from my perception she has a very normal appearing scant white discharge today testing will be sent for gonorrhea chlamydia trichomoniasis Gardnerella and yeast. There is no redness there is no abnormal mucosa and there is no abnormal discharge and no perceived odor as well Nulliparous cervix was a little bit difficult to reach secondary to adipose. There is a tiny eyelash of a Mirena string visible in the os. She would be due for replacement in August of 2023. She does get a period about twice a year and so it would be best if possible to aim for that but we will aim for replacement sometime this fall. Orders: Orders Bacterial Vaginosis Panel Today N89.8 - Other specified noninflammatory disorders of vagina CT NG by PCR Today N89.8 - Other specified noninflammatory disorders of vagina Medications: New metronidazole 0.75%(37.5mg/5gram) 1 appful vaginal BID 5 days 70 grams 3RF Quality Reporting (2019) Adult ([facility] 138/12/29/68) Smoking risk assessment performed?: Yes Patient Tobacco Use Status: Former Tobacco user Coding Level of Care Code Est Pt Level 3 (74866) Diagnoses Presence of 52 mg levonorgestrel-releasing intrauterine device (IUD) Z97.5 Problematic vaginal discharge N89.8
[2023-07-04 11:43] VITALS: BMI 47.1
== END 2023-07-04 12:33 | disposition home or self-care (01) ==
LOC: HO.HWS 11:26
PROVIDERS: PCP Internal Medicine; Visit Provider Advanced Practice Midwife
DX: Z97.5 Presence of (intrauterine) contraceptive device (principal); N89.8 Other specified noninflammatory disorders of vagina
CPT/HCPCS: 99213

== ENCOUNTER 2023-07-10 20:17 | Emergency (ER) | payer OTHER, SELFPAY ==
--- NOTE | ~2023-07-10 | XR_ITS ---
EXAMINATION: XR KNEE, LEFT CLINICAL INFORMATION: Pain. COMPARISON: None available. TECHNIQUE: Four views of the left knee. FINDINGS: The bone mineralization is normal. There is mild medial and lateral as well as patellofemoral degenerative change with loss of joint space, subchondral sclerosis and osteophyte formation. There is no fracture. There is no joint effusion. The soft tissues are unremarkable. XR/XR knee LT 3V IMPRESSION: 1. Mild tricompartment knee degenerative change. 2. There is no acute osseous abnormality or joint effusion.
[2023-07-10 20:26] VITALS: BP 149/86; PULSE 91; RESP 16; TEMP 36.7; O2SAT 100; BMI 47.1
--- NOTE | 2023-07-10 23:17 | ED.GENADULT ---
HPI - General Adult General Chief complaint: Extremity Injury, Lower Stated complaint: L Knee pain, no inj Time Seen by Provider: 07/10/23 22:06 Source: patient Mode of arrival: ambulatory History of Present Illness HPI narrative: 48-year-old female who presents with complaints of 1 week of atraumatic left knee pain that is more painful on the anterior aspect and radiates along bilateral sides of the knee, there has been no erythema/induration or swelling that she is aware of. 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 Related Data Home Medications Medication Instructions Recorded Confirmed levonorgestrel 21 mcg/24 hours (8 intrauterine 08/06/20 07/04/23 yrs) 52 mg intrauterine device (Mirena) melatonin 3 mg tablet 3 mg PO BEDTIME PRN Sleep 08/06/20 07/04/23 Previous Rx's Medication Instructions Recorded docusate sodium 100 mg capsule 200 mg PO BEDTIME #60 caps 09/14/22 (Colace) lactulose 10 gram/15 mL (15 mL) 10 g (15 mL) PO BEDTIME PRN 09/28/22 oral solution constipation 30 days #600 mL clotrimazole 1 % topical cream 1 appl topical BID 4 weeks #15 11/12/22 grams cholecalciferol (vitamin D3) 125 125 mcg PO DAILY 90 days #90 caps 12/06/22 mcg (5,000 unit) capsule methylcellulose (laxative) 500 mg 500 mg PO TID #60 tabs 02/17/23 tablet (Citrucel) dicyclomine 20 mg tablet 20 mg PO TID 30 days #90 tabs 03/24/23 omeprazole 20 mg capsule,delayed 20 mg PO DAILY 90 days #90 caps 04/25/23 release cyclobenzaprine 10 mg tablet 10 mg PO BEDTIME PRN muscle spasm 06/08/23 90 days #90 tabs metronidazole 0.75 % (37.5 mg/5 1 appful vaginal BID 5 days #70 07/04/23 gram) vaginal gel grams bupropion HCl 150 mg 24 hr tablet, 150 mg PO QAM 90 days #90 tabs 07/07/23 extended release levothyroxine 25 mcg tablet 25 mcg PO DAILY 90 days #90 tabs 07/07/23 zolpidem 10 mg tablet 10 mg PO BEDTIME PRN insomnia 30 07/07/23 days #30 tabs ketorolac 10 mg tablet 10 mg PO Q6H PRN pain 5 days #20 07/10/23 tabs Allergies Allergy/AdvReac Type Severity Reaction Status Date / Time oxycodone [From PERCOCET] Allergy Intermediate itchy Verified 07/04/23 11:44 Review of Systems Review of Systems: Pertinent positives and negatives as stated in HPI [facility] Past Medical History Source: nursing notes reviewed Medical History Back pain Constipation by delayed colonic transit Elevated TSH GERD (gastroesophageal reflux disease) Hypothyroid Hypovitaminosis D Insomnia Memory loss Moderate major depression Morbid obesity Shortness of breath Snores Surgical History H/O bilateral breast reduction surgery History of abdominoplasty History of History of esophagogastroduodenoscopy (EGD) History of release of tendon History of removal of laparoscopic gastric banding device Hx of colonoscopy Hx of laparoscopic gastric banding S/P lumpectomy, left breast Family History Family History Father HIV (human immunodeficiency virus infection) Mother Osteoporosis Hypertension Sister Crohn disease Fibromyalgia Maternal Grandmother CVD (cardiovascular disease) Stroke Maternal Grandfather Diabetes Prostate cancer Colon cancer Maternal Aunt History of breast cancer Maternal Aunt Endometrial cancer Maternal Uncle Pancreatic cancer Social History Social History Housing: House Are you a primary healthcare applications analyst to a significant other at home: No Do you presently have visiting nurse or other home services: No Alcohol intake: current Alcohol intake frequency: a few times a week Alcohol type: beer and hard liquor Patient Tobacco Use Status: Former Tobacco user Quit Date: 2009 Tobacco use type: Cigarette Smoked in Last 30 Days: No e-Cigarette/Vaping Use: Never Used Second Hand Smoke Exposure: No Use of substances other than those prescribed or required for medical reasons: No Advance Directives: No Advance Directives Information Provided: No Patient : No service: No Current occupational status: employed 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 GENERAL: Elevated BMI, Well developed, well nourished, in no acute distress. HEAD: Normocephalic/atraumatic EYES: PERRLA, EOMI LUNGS: Normal breath sounds. No adventitious sounds or accessory muscle use. SpO2<100> CARDIOVASCULAR: Regular rate and rhythm without noted murmurs ABDOMEN: Soft, non-tender, non-distended with bowel sounds. MUSCULOSKELETAL: No tenderness, deformities, or effusions noted on gross inspection. EXTREMITIES: No cyanosis, clubbing or edema. LEFT KNEE: No erythema/induration, no effusion, there is very mild tenderness to palpation across the anterior aspect but otherwise provocative testing is negative and neurovascular is intact distally SKIN: Inspection of the skin reveals no rashes NEUROLOGIC: Alert and oriented x 4. Strength and sensation to light touch were grossly intact x 4. Medical Decision Making Medical Decision Making MDM Narrative: 48-year-old female with history and clinical presentation most consistent with osteoarthritis and there is no history or clinical exam findings to suggest septic joint, torn soft tissue or fracture/dislocation. I reviewed the left knee x-rays which demonstrate mild try compartment knee degenerative changes suggestive of osteoarthritis and otherwise my interpretation is in agreement with radiology's impression. Patient received combination Tylenol and Toradol as discussed with her bedside and she is otherwise discharged home. Discharge Plan Discharge Clinical Impression: Knee pain, left, Osteoarthritis Patient Disposition: Home, Self-Care Instructions: Osteoarthritis (ED), Knee Pain (ED) Additional Instructions: 1. Resume all home medications as prescribed. 2. Tylenol 1000 mg, orally, every 6 hours as needed for pain control. Do not exceed 4000 mg within 24 hours. 3. Follow-up with your primary care provider discussed possible referral for physical therapy. Return to the ER for any worsening symptoms. Prescriptions: New ketorolac 10 mg tablet 10 mg PO Q6H PRN (Reason: pain) 5 Days Qty: 20 0RF Rx Instructions: Patient received Toradol in the emergency room. No Action lactulose 10 gram/15 mL (15 mL) solution 10 g PO BEDTIME PRN (Reason: constipation) 30 Days Qty: 600 3RF clotrimazole 1 % cream 1 appl topical BID 28 Days Qty: 15 1RF dicyclomine 20 mg tablet 20 mg PO TID 30 Days Qty: 90 1RF omeprazole 20 mg capsule,delayed release(DR/EC) 20 mg PO DAILY 90 Days Qty: 90 1RF levothyroxine 25 mcg tablet 25 mcg PO DAILY 90 Days Qty: 90 0RF bupropion HCl 150 mg tablet extended release 24 hr 150 mg PO QAM 90 Days Qty: 90 1RF zolpidem 10 mg tablet 10 mg PO BEDTIME PRN (Reason: insomnia) 30 Days Qty: 30 0RF Mirena 20 mcg/24 hours (5 yrs) 52 mg intrauterine device intrauterine melatonin 3 mg tablet 3 mg PO BEDTIME PRN (Reason: Sleep) cholecalciferol (vitamin D3) 125 mcg (5,000 unit) capsule 125 mcg PO DAILY 90 Days Qty: 90 1RF cyclobenzaprine 10 mg tablet 10 mg PO BEDTIME PRN (Reason: muscle spasm) 90 Days Qty: 90 0RF Citrucel 500 mg tablet 500 mg PO TID Qty: 60 11RF docusate sodium [Colace] 100 mg capsule 200 mg PO BEDTIME Qty: 60 5RF metronidazole 0.75 % (37.5mg/5 gram) gel 1 appful vaginal BID 5 Days Qty: 70 3RF Referrals: Kusum Jenkins MD [Primary Care Provider] -
[2023-07-10] MEDS: Ketorolac Tromethamine 15 MG/ML VIAL IM (23:41)
[2023-07-10] MEDS: Acetaminophen 325 MG TABLET 975 MG PO (23:41)
[2023-07-10 23:45] VITALS: BP 129/76; PULSE 84; RESP 19; O2SAT 100
== END 2023-07-10 23:47 | disposition home or self-care (01) ==
PROVIDERS: Emergency Provider Student in an Organized Health Care Education/Training Program; PCP Internal Medicine
DX: M17.12 Unilateral primary osteoarthritis, left knee (principal); M25.562 Pain in left knee; Z87.891 Personal history of nicotine dependence; Z79.899 Other long term (current) drug therapy
CPT/HCPCS: 73562; 96372; 99284; J1885

== ENCOUNTER 2023-09-14 13:37 | Outpatient (AMB) | payer OTHER, SELFPAY ==
[2023-09-14 13:45] VITALS: BMI 47.1
--- NOTE | 2023-09-14 13:45 | A.OFFVIS_ITS ---
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 The patient describes her pain as sharp in nature. Her pain has gotten worse over the last few years in spite of continued non operative treatments. She has had cortisone injections in the past which gave her only mild relief. She has not had a viscosupplementation injection. She has done physical therapy for 12 weeks over the last 6 months which aggravated her pain. She has also tried Tylenol and anti-inflammatory medicines as well as topical creams which gave her minimal relief. Allergies oxycodone [From PERCOCET] Allergy (Intermediate, Verified 09/14/23 13:54) itchy Medication List - Last Reconciled 09/14/23 by William Lock MD acetaminophen 500 mg PO Q6H PRN 30 days bupropion HCl 150 mg PO QAM 90 days cholecalciferol (vitamin D3) 125 mcg PO DAILY 90 days clotrimazole 1% 1 appl topical BID 4 weeks cyclobenzaprine 10 mg PO BEDTIME PRN 90 days diclofenac sodium 1% (Voltaren Arthritis Pain) 4 grams topical QID dicyclomine 20 mg PO TID 30 days docusate sodium (Colace) 200 mg (2 x 100 mg) PO BEDTIME lactulose 10 grams (15 mL) PO BEDTIME PRN 30 days levonorgestrel (Mirena) intrauterine levothyroxine 25 mcg PO DAILY 90 days melatonin 3 mg PO BEDTIME PRN methylcellulose (laxative) (Citrucel) 500 mg PO TID metronidazole 0.75%(37.5mg/5gram) 1 appful vaginal BID 5 days naproxen 375 mg PO BID PRN omeprazole 20 mg PO DAILY 90 days zolpidem 10 mg PO BEDTIME PRN 30 days PFSH Medical History Back pain Constipation by delayed colonic transit Elevated TSH GERD (gastroesophageal reflux disease) Hypothyroid Hypovitaminosis D Insomnia Memory loss Moderate major depression Morbid obesity Shortness of breath Snores Surgical History H/O bilateral breast reduction surgery History of abdominoplasty History of History of esophagogastroduodenoscopy (EGD) History of release of tendon History of removal of laparoscopic gastric banding device Hx of colonoscopy Hx of laparoscopic gastric banding S/P lumpectomy, left breast Family History Father HIV (human immunodeficiency virus infection) Mother Osteoporosis Hypertension Sister Crohn disease Fibromyalgia Maternal Grandmother CVD (cardiovascular disease) Stroke Maternal Grandfather Diabetes Prostate cancer Colon cancer Maternal Aunt History of breast cancer Maternal Aunt Endometrial cancer Maternal Uncle Pancreatic cancer Social History Housing: House Are you a primary urgent care physician to a significant other at home: No Do you presently have visiting nurse or other home services: No Alcohol intake: current Alcohol intake frequency: a few times a week Alcohol type: beer and hard liquor Patient Tobacco Use Status: Former Tobacco user Quit Date: 2009 Tobacco use type: Cigarette e-Cigarette/Vaping Use: Never Used Second Hand Smoke Exposure: No service: No Current occupational status: employed 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/hazards: No Gender identity: Female Cognitive needs: No Hearing needs: No Vision needs: Yes Female Reproductive History Menstrual Age of Menarche: 13 Physical Exam Vital Signs: BMI result Body Mass Index 47.1 Const Other: Well-nourished well-developed very friendly female awake alert and oriented x3 in no acute distress Extrem Other: Bilateral lower extremity examination shows good capillary refill, no skin lesions noted, normal sensation light touch Left knee examination shows a mild effusion, palpable crepitus with range of motion, pain with range of motion, no instability Results Reviewed Results Reviewed: 09/14/23 14:14 Lidocaine HCl 2 % MPF [Xylocaine 2 % MPF] 5 ml .ROUTE .STK-MED ONE Triamcinolone Acetonide [Kenalog-40] 40 mg .ROUTE .STK-MED ONE X-rays of the patient's left knee show moderate diffuse joint space narrowing most significant in the patellofemoral joint, no acute bony abnormalities Assessment & Plan Assessment & Plan (1) Arthritis of left knee: Code(s): M17.12 - Unilateral primary osteoarthritis, left knee Plan Ms. Zhao presents with left knee pain and swelling due to degenerative joint disease. I had a lengthy discussion with the patient regarding the treatment options. She wishes to hold off on surgery for as long as possible. I agree with this plan. The risks and benefits of a cortisone injection were discussed at length with the patient. The patient wished to proceed. She tolerated the injection well. 3 cc of clear fluid were aspirated from her left knee prior to the injection. If the patient does not get lasting relief from the cortisone injection therapy I will see whether not her insurance company will cover a viscosupplementation injection in 2-3 months. I will see her back at that time. Feel free to call me at any time should questions regarding her orthopedic management arise. Thank you very much for asking me to see this very friendly patient. I spent 22 minutes in reviewing the patient's records and imaging studies, seeing the patient and documenting in the medical record. Orders: Orders AMB Joint Injection/Aspiration 09/14/23 M17.12 - Unilateral primary osteoar thritis, left knee Quality Reporting (2019) Adult ([facility] ) Smoking risk assessment performed?: Yes Patient Tobacco Use Status: Former Tobacco user Coding Level of Care Code New Pt Level 2 (41990) Diagnoses Arthritis of left knee M17.12
== END 2023-09-14 14:33 | disposition home or self-care (01) ==
PROVIDERS: PCP Internal Medicine; Visit Provider Orthopaedic Surgery
DX: M17.12 Unilateral primary osteoarthritis, left knee (principal)
CPT/HCPCS: 99202

== ENCOUNTER → 2023-09-14 13:37 | Outpatient (BNVA) | payer OTHER, SELFPAY | PROVIDERS: PCP Internal Medicine; Visit Provider Orthopaedic Surgery | DX: M17.12 Unilateral primary osteoarthritis, left knee (principal) | CPT/HCPCS: 99202; J3301 ==

== ENCOUNTER 2023-09-16 13:58 | Outpatient (AMB) | payer OTHER, SELFPAY ==
[2023-09-16 14:12] VITALS: BP 128/78; BMI 46.6
--- NOTE | 2023-09-16 14:12 | A.OFFVIS_ITS ---
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: No Information Interpreted: clinical only Lab Technologist: Lab Technologist Present Allergies ketorolac Allergy (Severe, Verified 09/16/23 14:15) Stomach Upset oxycodone [From PERCOCET] Allergy (Intermediate, Verified 09/16/23 14:15) itchy Medication List - Last Reconciled 09/16/23 by Jane Guzmán CNM acetaminophen 500 mg PO Q6H PRN 30 days cyclobenzaprine 10 mg PO BEDTIME PRN 90 days dicyclomine 20 mg PO TID 30 days levonorgestrel (Mirena) intrauterine levothyroxine 25 mcg PO DAILY 90 days melatonin 3 mg PO BEDTIME PRN omeprazole 20 mg PO DAILY 90 days zolpidem 10 mg PO BEDTIME PRN 30 days Is last menstrual period known: No HPI Mirena replacement HPI Details Patient is here for for Mirena replacement. She has had the present 1 since 2018 which was about 3 months after she gave she had Depo-Provera before getting that. She has been happy with the Mirena. she gets a very like period Maybe once or twice a year. She does not want to have another baby at this stage of her life. She is sexually active with her and did have sex last night but she has the Mirena in. She is going to need [place] for the weekend for her [id number] mcc celebration from the police. He had some fluid removed from her left knee yesterday and had a cortisone shot and it made a lot of improvement for her. She is going to be seeing bariatric surgery to see if she can have a revision she had lost about 80 lb when she had bariatric surgery but then COVID hit and the gym closed and life was stressful and she gained it all back. [facility] Medical History Snores Hypothyroid Hypovitaminosis D Moderate major depression Memory loss Elevated TSH Shortness of breath Morbid obesity Constipation by delayed colonic transit GERD (gastroesophageal reflux disease) Insomnia Back pain Surgical History Hx of colonoscopy S/P lumpectomy, left breast History of esophagogastroduodenoscopy (EGD) History of release of tendon History of History of removal of laparoscopic gastric banding device H/O bilateral breast reduction surgery History of abdominoplasty Hx of laparoscopic gastric banding Family History Father HIV (human immunodeficiency virus infection) Mother Osteoporosis Hypertension Sister Crohn disease Fibromyalgia Maternal Grandmother CVD (cardiovascular disease) Stroke Maternal Grandfather Diabetes Prostate cancer Colon cancer Maternal Aunt History of breast cancer Maternal Aunt Endometrial cancer Maternal Uncle Pancreatic cancer Social History Housing: House Are you a primary childcare center director to a significant other at home: No Do you presently have visiting nurse or other home services: No Alcohol intake: current Alcohol intake frequency: a few times a week Alcohol type: beer and hard liquor Patient Tobacco Use Status: Former Tobacco user Quit Date: 2009 Tobacco use type: Cigarette e-Cigarette/Vaping Use: Never Used Second Hand Smoke Exposure: No service: No Current occupational status: employed 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 Uterus is difficult to feel secondary to adipose. External Female Exam: normal external appearance Speculum Exam - Vagina: normal appearance of the vagina and normal vaginal discharge Speculum Exam - Cervix: normal appearance of the cervix Bimanual exam- vagina & uterus: normal bimanual exam, uterine size normal, consistency normal, uterine mobility normal, uterine shape normal and non-tender Bimanual Exam- Adnexa, other: normal adnexae, no masses and No adnexal tenderness Office Procedures IUD Insert/Removal Details Details: ---Patient is here for her IUD removal and insertion. Bimanual exam was done. Her uterus is firm, nontender, and appropriate sized, and is difficult to determine. . The IUD strings were grasped with ring forceps, and as patient coughed the IUD was removed easily with 1 tug. ---The cervix was recleaned with Betadine. Tenaculum was placed on the cervix slowly to minimize cramping. The uterus was sounded slowly and gently she show a measurement of 7.5 cm. The IUD was removed from its package, after checking identifying information and lot dates and expiration dates and and gently inserted into the os, as per the IUD insertion procedure. The strings were then trimmed to 3-4 centimetres. The tenaculum was removed and gentle pressure applied with a swab, until any bleeding subsided from the tenaculum sites. The speculum was gently removed. The patient sat up. I Reviewed what to expect, and what indications would necessitate a call. Pt to call for fever, untoward pain or cramping. I reviewed any appropriate backup method. Pt to return for recheck as scheduled. 38935-RFL Insertion 19271-XJM Removal Procedure code (CPT) selection complete Office Meds Mirena 21 mcg/24 hours (8 yrs) 52 mg intrauterine device Performing Provider: Jane Guzmán CNM Performing Location: 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 1 device intrauterine [facility] 1 device [id number] 10/06/25 98078-989-32 [employer] Results AMB Test Urine AMB Test Urine Negative Last Edit by Rolo Reynolds CMA on 09/16/23 15:13 Assessment & Plan Assessment & Plan (1) Presence of 52 mg levonorgestrel-releasing intrauterine device (IUD): Comment: This 1 was placed in August of 2018, Code(s): Z97.5 - Presence of (intrauterine) contraceptive device (2) Encounter for removal and reinsertion of intrauterine contraceptive device (IUD): Code(s): Z30.433 - Encounter for removal and reinsertion of intrauterine contraceptive device Plan Pelvic was exam was done 1st difficult to feel the direction of the uterus. Speculum exam was done vagina pink and clear testing for STIs was done. ---Patient is here for her IUD removal and insertion. Bimanual exam was done. Her uterus is firm, nontender, and appropriate sized, and is unclear what the position is . The IUD strings were grasped with ring forceps, and as patient coughed the IUD was removed easily with 1 tug. ---The cervix was cleaned with Betadine. Tenaculum was placed on the cervix slowly to minimize cramping. The uterus was sounded slowly and gently she show a measurement of 7.5 cm. The IUD was removed from its package, after checking identifying information and lot dates and expiration dates and and gently inserted into the os, as per the IUD insertion procedure. The strings were then trimmed to 3-4 centimetres. The tenaculum was removed and gentle pressure applied with a swab, until any bleeding subsided from the tenaculum sites. The speculum was gently removed. The patient sat up. I Reviewed what to expect, and what indications would necessitate a call. Pt to call for fever, untoward pain or cramping. I reviewed any appropriate backup method. I recommend she avoid sex for several days Pt to return for recheck as scheduled in about 6 weeks. Orders: Orders CT NG by PCR Today Z01.419 - Encounter for gynecological examination (general) (routine) without abnormal findings Bacterial Vaginosis Panel Today Z20.2 - Contact with and (suspected) exposure to infections with a predominantly sexual mode of transmission AMB IUD Insertion/Removal - Practice Supplied Today Z30.433 - Encounter for removal and reinsertion of intrauterine contraceptive device AMB HCG Urine Test Today Z32.02 - Encounter for test, result negative Quality Reporting (2019) Adult ([facility] ) Smoking risk assessment performed?: Yes Patient Tobacco Use Status: Former Tobacco user Coding Level of Care Code Est Pt Level 3 (75265) Diagnoses Presence of 52 mg levonorgestrel-releasing intrauterine device (IUD) Z97.5 Encounter for removal and reinsertion of intrauterine contraceptive device (IUD) Z30.433 CPT Codes Details - CPT: 67491-ITR Insertion ([id number]) Details - CPT: 74802-RKA Removal ([id number])
== END 2023-09-16 14:49 | disposition home or self-care (01) ==
PROVIDERS: PCP Internal Medicine; Visit Provider Advanced Practice Midwife
DX: Z30.430 Encounter for insertion of intrauterine contraceptive device (principal); Z32.02 Encounter for pregnancy test, result negative
CPT/HCPCS: 58300; 58301

== ENCOUNTER 2023-09-16 13:58 | Outpatient (REF) | payer OTHER, SELFPAY ==
[2023-09-17 03:16] LABS: CT PCR NOT DETECTED (Not Detect.); NG PCR NOT DETECTED (Not Detect.)
[2023-09-17 12:41] LABS: BV Int Neg Control Negative (Negative); BV Int Pos Control Positive (Positive)
== END 2023-09-16 13:59 | disposition home or self-care (01) ==
LOC: HO.LAB 13:58
PROVIDERS: PCP Internal Medicine; Visit Provider Advanced Practice Midwife
DX: Z30.433 Encounter for removal and reinsertion of intrauterine contraceptive device (principal); Z20.2 Contact with and (suspected) exposure to infections with a predominantly sexual mode of transmission
CPT/HCPCS: 0353U; 58300; 58301; 81025; 87480; 87510; 87660; J7298

== ENCOUNTER 2024-01-07 09:59 | Outpatient (REF) | payer OTHER, SELFPAY ==
--- NOTE | ~2024-01-07 | MM_ITS ---
EXAMINATION: MM SCREENING DIGITAL BREAST TOMOSYNTHESIS, BILATERAL CLINICAL INFORMATION: Screening. Asymptomatic. The patient is status post excision of the left breast radial scar. COMPARISON: Mammography: This study is compared with prior exams dating back to 2019. TECHNIQUE: Digital breast tomosynthesis is performed in both the craniocaudal and mediolateral oblique views along with computer-aided detection (CAD). Synthesized 2D images are generated from the tomosynthesis. FINDINGS: There are scattered areas of fibroglandular density (ACR BI-RADS breast composition Category b). There are no significant masses, abnormal calcifications, or other abnormalities. MM/MM tomosynthesis screening BI IMPRESSION: No mammographic evidence of malignancy. ASSESSMENT: BI-RADS BI-RADS 1 - Negative RECOMMENDATION: Routine annual mammography screening. 1 year F/U This examination should not preclude the clinical evaluation of a suspicious palpable abnormality. This patient's information was entered into a reminder system with a target due date for their next mammogram.
== END 2024-01-07 10:00 | disposition home or self-care (01) ==
LOC: HO.MAMMO 09:59
PROVIDERS: PCP Internal Medicine; Visit Provider Internal Medicine
DX: Z12.31 Encounter for screening mammogram for malignant neoplasm of breast (principal)
CPT/HCPCS: 77063; 77067

== ENCOUNTER → 2024-01-07 10:15 | Outpatient (BNV) | payer OTHER, SELFPAY | PROVIDERS: PCP Internal Medicine; Visit Provider Radiology Diagnostic Radiology | DX: Z12.31 Encounter for screening mammogram for malignant neoplasm of breast (principal) | CPT/HCPCS: 77063; 77067 ==

== ENCOUNTER 2024-02-02 14:59 | Outpatient (AMB) | payer OTHER, SELFPAY ==
--- NOTE | 2024-02-02 15:00 | MHC.OFFVIS ---
Intake Vital Signs 02/02/24 15:03 Height 5 ft 5 in Weight 222 lb 10.67 oz BMI 37.0 BP 129/68 Blood Pressure Location Lt brachial Position Sitting Pulse 69 Intake Visit Reasons: Abdominal pain Intake Note: Mckenna presents in the office as a follow up for abdominal pains. CC: She states that the last time she had the double and was told she has diverticulitis and she was never put on any sort of treatment. She notices she eats certain things and gets bloating. Extractor Filler Required: No Allergies ketorolac Allergy (Severe, Verified 02/08/24 07:44) Stomach Upset oxycodone [From PERCOCET] Allergy (Intermediate, Verified 02/08/24 07:44) itchy Medication List - Last Reconciled 02/02/24 by FELIX Ogden-Tereso acetaminophen 500 mg PO Q6H PRN 30 days cyclobenzaprine 10 mg PO BEDTIME PRN 90 days dicyclomine 20 mg PO TID 30 days levonorgestrel (Mirena) intrauterine levothyroxine 25 mcg PO DAILY 90 days melatonin 3 mg PO BEDTIME PRN metronidazole 500 mg PO BID 7 days omeprazole 20 mg PO DAILY 90 days zolpidem 10 mg PO BEDTIME PRN 30 days HPI HPI Comments History of Present Illness Details A 49 y/o female with discomfort in stomach-gastric banding 10 years ago-she has having no real GI symptoms. She gets bloated-certain she is just here to discuss diverticulosis Reviewed EGD colonoscopy from [address] Richardson She has no abdominal pain, nausea, vomiting, hematemesis, hematochezia fever chills PFSH Medical History (Updated 02/08/24 @ 08:40 by Kusum Ribeiro MD) Snores Hypothyroid Hypovitaminosis D Moderate major depression Memory loss Elevated TSH Shortness of breath Morbid obesity Constipation by delayed colonic transit GERD (gastroesophageal reflux disease) Insomnia Back pain Surgical History Hx of colonoscopy S/P lumpectomy, left breast History of esophagogastroduodenoscopy (EGD) History of release of tendon History of History of removal of laparoscopic gastric banding device H/O bilateral breast reduction surgery History of abdominoplasty Hx of laparoscopic gastric banding Family History Father HIV (human immunodeficiency virus infection) Mother Osteoporosis Hypertension Sister Crohn disease Fibromyalgia Maternal Grandmother CVD (cardiovascular disease) Stroke Maternal Grandfather Diabetes Prostate cancer Colon cancer Maternal Aunt History of breast cancer Maternal Aunt Endometrial cancer Maternal Uncle Pancreatic cancer Social History Housing: House Are you a primary healthcare administration intern to a significant other at home: No Do you presently have visiting nurse or other home services: No Alcohol intake: current Alcohol intake frequency: a few times a week Alcohol type: beer and hard liquor Patient Tobacco Use Status: Former Tobacco user Quit Date: 2009 Tobacco use type: Cigarette e-Cigarette/Vaping Use: Never Used Second Hand Smoke Exposure: No service: No Current occupational status: employed 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/hazards: No Gender identity: Female Cognitive needs: No Hearing needs: No Vision needs: Yes Female Reproductive History Menstrual Age of Menarche: 13 Review of Systems Const All systems reviewed & are unremarkable except as noted in HPI and below GI Denies abdominal pain, Denies hematochezia, Denies nausea, Denies vomiting and Reports other (Bloated) Physical Exam Vital Signs: Last Vital Signs Pulse 69 02/02/24 15:03 BP 129/68 02/02/24 15:03 BMI result Body Mass Index 37.0 Const General: cooperative, healthy appearing, comfortable and no acute distress Orientation/consciousness: patient oriented x3 Limitations: no limitations Neuro General: patient oriented x3 Psych Appearance: grossly normal and well kempt Mental Status: mental status grossly normal Speech and movement: Normal speech and movement present and Clear speech present Affect: normal affect Thought process: Normal thought process present Thought content: Normal thought content present Insight: Good insight present (Psych) Judgement: Good judgement present (Psych) Results Reviewed Results Reviewed: mpression and Post Procedure Diagnosis: Endoscopy Findings: ESOPHAGUS: Hiatal hernia STOMACH: Gastritis DUODENUM: Normal - biopsied to check for celiac sprue Colonoscopy Findings: Two small polyps removed Moderate diverticulosis seen in the sigmoid colon Moderate hemorrhoids on retroflexed exam. Plan: Await pathology results Patient has an appointment on 02/17/23 in the GI Clinic with FELIX Dunn. Repeat Colonoscopy interval based on path results - in 5 years if polyps are adenomatous and due to family history of colon cancer. Above findings were reviewed with the patient and GERD, hiatal hernia, colon polyps and diverticulosis handouts were given in the discharge are e: Mckenna Zhao Age/Sex: 48/F Attending: Isaiah Richardson MD : 1975 Submitted by: Isaiah Richardson MD Copies to: Kusum Jenkins MD MR #: [id number] Status: [facility] Collected: 02/04/23 Location: [facility] Received: 02/04/23 Diagnosis A. Small bowel, biopsy: Small intestinal mucosa with mildly increased intraepithelial lymphocytes and preserved villous architecture. See comment. B. Stomach, antrum, biopsy: Antral-type mucosa with mild chronic inactive inflammation; no Helicobacter organisms seen. C. Colon, descending, polypectomies: - Hyperplastic mucosal polyp. - Colonic mucosa with prominent lymphoid aggregate. COMMENT: The findings in the small bowel are non-specific. The differential diagnosis is broad and includes celiac disease as well as infection (e.g. in this case viral), medication/drugs (e.g. NSAIDs), bacterial overgrowth, tropical sprue, immunodeficiency syndromes (e.g. IgA deficiency, CVID), autoimmune enteropathy, Crohns and collagen vascular disease, among others. Please correlate with clinical and other laboratory findings. Clinical History Pre-Op Dx: Screening, reflux disease, constipation Post-Op Dx: Gastritis, hiatal hernia, GERD, colon polyps, diverticulosis, hemorrhoids, r/o celiac/sprue, r/o H. pylori Microscopic Description A-C. Microscopic sections reviewed. Immunostain for H. pylori is non-reactive (B). Material Received A: Small bowel bx's, r/o celiac/sprue B: Gastric antrum bx's, r/o H. pylori C: Descending colon polyps Gross Description Received in three parts. Part A: Received in formalin labeled Small bowel bx's are two glistening, semitranslucent, soft, hyperemic, alvarez-pink, irregular tissue fragments, measuring 0.25 and 0.3 cm. in greatest dimension, which are submitted in toto in a single cassette labeled A. Part B: Received in formalin labeled Gastric antrum bx's are three glistening, semitranslucent, soft, Patient: Mckenna Zhao Age/Sex: 48/F MR#: [id number] Page 1 of 2 Assessment & Plan Assessment & Plan (1) Diverticulosis: Code(s): K57.90 - Diverticulosis of intestine, part unspecified, without perforation or abscess without bleeding Plan: Reviewed ER protocol Medications: New simethicone (Gas Relief (simethicone)) 125 mg PO TID-QID PRN 90 tabs 2RF abdominal distention Patient Instructions: Diverticulosis/diverticulitis ER protocol Maintain high-fiber diet literature Review foods to avoid seeds, corn, nuts ETC She will give trial to simethicone for bloating Low FODMAP info given Opportunity for questions, answered to her satisfaction No major barriers to understanding were identified Encouraged to call with any questions or concerns Quality Reporting (2019) Adult ([facility] 138/12/29/68) Smoking risk assessment performed?: Yes Patient Tobacco Use Status: Former Tobacco user Coding Level of Care Code Est Pt Level 3 (98840) Diagnoses Diverticulosis K57.90 Time Spent (min) 20
[2024-02-02 15:03] VITALS: BP 129/68; PULSE 69; BMI 37.0
== END 2024-02-02 15:57 | disposition home or self-care (01) ==
PROVIDERS: PCP Internal Medicine; Visit Provider Physician Assistant
DX: K57.90 Diverticulosis of intestine, part unspecified, without perforation or abscess without bleeding (principal)
CPT/HCPCS: 99213

== ENCOUNTER → 2024-02-02 14:59 | Outpatient (BNVA) | payer OTHER, SELFPAY | PROVIDERS: PCP Internal Medicine; Visit Provider Physician Assistant | DX: K57.90 Diverticulosis of intestine, part unspecified, without perforation or abscess without bleeding (principal) | CPT/HCPCS: 99212 ==

== ENCOUNTER 2024-02-04 09:23 | Outpatient (REF) | payer OTHER, SELFPAY ==
[2024-02-04 10:36] LABS: Thyroid Stimulating Hormone 3.05 uIU/mL (0.32-4.0); Vitamin D 25-OH Total 26.9 ng/mL (>30)
== END 2024-02-04 09:24 | disposition home or self-care (01) ==
LOC: HO.LAB 09:23
PROVIDERS: PCP Internal Medicine; Visit Provider Internal Medicine
DX: E55.9 Vitamin D deficiency, unspecified (principal); R79.89 Other specified abnormal findings of blood chemistry
CPT/HCPCS: 36415; 82306; 84443

== ENCOUNTER 2024-02-08 07:27 | Outpatient (AMB) | payer OTHER, SELFPAY ==
--- NOTE | 2024-02-08 07:31 | MHC.PC.OV ---
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 Accompanied by: Self / Same As Patient Allergies ketorolac Allergy (Severe, Verified 02/08/24 07:44) Stomach Upset oxycodone [From PERCOCET] Allergy (Intermediate, Verified 02/08/24 07:44) itchy Medication List - Last Reconciled 02/08/24 by Kusum Ribeiro MD acetaminophen 500 mg PO Q6H PRN 30 days cyclobenzaprine 10 mg PO BEDTIME PRN 90 days dicyclomine 20 mg PO TID 30 days levonorgestrel (Mirena) intrauterine levothyroxine 25 mcg PO DAILY 90 days omeprazole 20 mg PO DAILY 90 days simethicone (Gas Relief (simethicone)) 125 mg PO TID-QID PRN zolpidem 10 mg PO BEDTIME PRN 30 days Tobacco use date assessed: 02/08/24 Dental Screening Dental Screen Date: 02/08/24 Did you have a dental visit in the last 12 months?: Yes Did you have a dental problem in the last 6 months where you did not have access to dental care?: No Was dental information given to patient?: Patient has dentist HPI HPI Comments History of Present Illness Details This is a 49-year-old female that comes for her physical exam. Last mammogram was 2022 and was normal. Last Pap smear was 2019 and was normal with HPV negative. Last colonoscopy was 2022 showing hyperplastic polyp. Denies any chest pain or shortness of breath. Complains of some memory loss and would like neurology referral. Also has dry skin lesion in feet most likely due to tinea pedis. [facility] Medical History (Updated 02/08/24 @ 08:40 by Kusum Ribeiro MD) Snores Hypothyroid Hypovitaminosis D Moderate major depression Memory loss Elevated TSH Shortness of breath Morbid obesity Constipation by delayed colonic transit GERD (gastroesophageal reflux disease) Insomnia Back pain Surgical History Hx of colonoscopy S/P lumpectomy, left breast History of esophagogastroduodenoscopy (EGD) History of release of tendon History of History of removal of laparoscopic gastric banding device H/O bilateral breast reduction surgery History of abdominoplasty Hx of laparoscopic gastric banding Family History Father HIV (human immunodeficiency virus infection) Mother Osteoporosis Hypertension Sister Crohn disease Fibromyalgia Maternal Grandmother CVD (cardiovascular disease) Stroke Maternal Grandfather Diabetes Prostate cancer Colon cancer Maternal Aunt History of breast cancer Maternal Aunt Endometrial cancer Maternal Uncle Pancreatic cancer Social History Housing: House Are you a primary director of career services to a significant other at home: No Do you presently have visiting nurse or other home services: No Alcohol intake: current Alcohol intake frequency: a few times a week Alcohol type: beer and hard liquor Patient Tobacco Use Status: Former Tobacco user Quit Date: 2009 Tobacco use type: Cigarette e-Cigarette/Vaping Use: Never Used Second Hand Smoke Exposure: No service: No Current occupational status: employed 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 1. Little interest or pleasure in doing things: not at all 2. Feeling down, depressed, or hopeless: not at all 3. Trouble falling or staying asleep, or sleeping too much: not at all 4. Feeling tired or having little energy: not at all 5. Poor appetite or overeating: not at all 6. Feeling bad about yourself - or that you are a failure or have let yourself or your family down: not at all 7. Trouble concentrating on things, such as reading the newspaper or watching television: not at all 8. Moving or speaking so slowly that other people could have noticed. Or the opposite - being so fidgety or restless that you have been moving around a lot more than usual: not at all 9. Thoughts that you would be better off or of hurting yourself in some way: not at all Total score: 0 Depression Screening Interpretation: Negative Depression Screening Done: Yes 53096 - PHQ-9 Billing: Yes Source: Developed by Drs. Josh Keita, Shani Haro, Rocky Sotelo and colleagues, with an educational monica from [employer]. Thrive Questionnaire Date Thrive assessed: 02/08/24 I am a: Patient What is your living situation today?: I have a steady place to live Within the past 12 months, did the food you bought not last and you didn't have the money to get more?: Never true Within the past 12 months, did you worry whether your food would run out before you got money to buy more?: Never true Do you have trouble paying for medicines?: No Do you have trouble getting transportation to medical appointments?: No Do you have trouble paying your heating and electricity bill?: No Do you have trouble taking care of your child, family member or friend?: No Do you have trouble with day-to-day activities such as bathing, preparing meals, shopping, managing finances, etc.?: No Are you currently unemployed and looking for a job?: No Are you interested in more education?: No Please select the resources that you would like help with: None Currently or been in a relationship where the following occur: no concerns reported THRIVE Score: 0 AUDIT C Alcohol Use Questionnaire (AUDIT-C) 1. How often do you have a drink containing alcohol?: Monthly or less 2. How many drinks containing alcohol do you have on a typical day when you are drinking?: 1 or 2 3. How often do you have six or more drinks on one occasion?: Never Total Score: 1 Score Reviewed/Action Taken: No RICHMOND-7 AMB Questionnaire RICHMOND-7 Date RICHMOND - 7 assessed: 02/08/24 Feeling nervous, anxious, or on edge: 1 = Several days Not being able to stop or control worryin = Not at all Worrying too much about different things: 0 = Not at all Trouble relaxin = Not at all Being so restless that it is hard to sit still: 0 = Not at all Becoming easily annoyed or irritable: 0 = Not at all Feeling afraid as if something awful might happen: 0 = Not at all Total RICHMOND-7 score (0-4 normal; 5-9 mild; 10-14 moderate; 15-21 severe): 1 Source: Developed by Drs. Josh Keita, Shani Haro, Rocky Sotelo and colleagues, with an educational monica from [employer]. RICHMOND-7 Assessment Billing RICHMOND-7 Assessment Tool: RICHMOND-7 Assessment 24152 Review of Systems Const All systems reviewed & are unremarkable except as noted in HPI and below Eyes Reports no additional complaints, Denies change in vision and Denies other visual disturbances Card Denies chest pain at rest, Denies chest pain with activity, Denies edema, Denies irregular heart rhythm, Denies claudication, Denies dyspnea, Denies dyspnea on exertion, Denies orthopnea, Denies paroxysmal nocturnal dyspnea and Denies slow heart rate Resp Denies cough, Denies dyspnea and Denies dyspnea on exertion GI Denies abdominal pain, Denies change in bowel habits, Denies excessive flatus, Denies nausea and Denies vomiting Denies urinary incontinence, Denies urinary hesitancy and Denies urinary urgency Ghanshyam/Lymph Denies easy bleeding and Denies easy bruising Physical exam (Primary Care) Vital Signs: Last Vital Signs BP 120/70 02/08/24 07:36 BMI result Body Mass Index 36.3 Tobacco/Smoking Status: Tobacco use Status Tobacco use date assessed 02/08/24 02/08/24 07:44 Patient Tobacco Use Status Former Tobacco user 02/08/24 07:44 Tobacco use type Cigarette 02/08/24 07:44 e-Cigarette/Vaping Use Never Used 02/08/24 07:44 PHQ-9: PHQ-9 Score PHQ-9: Total score 0 02/08/24 07:49 Depression Screening Interpretation: Negative Thrive Assessment: Date of Thrive Assessment Date Thrive assessed 02/08/24 02/08/24 07:44 Currently or been in a relationship where the following occur: no concerns reported Const Orientation/consciousness: patient oriented x3 HENMT Head: Yes normal to inspection, Yes normocephalic and Yes atraumatic Ears: external ears normal Eyes General: appearance normal, both eyes and all related structures Eyelids: Yes eyelids normal Conjunctivae: conjunctivae normal Neck Neck: Yes normal visual inspection and Yes supple Resp Effort & Inspection: normal respiratory effort Auscultation: clear to auscultation bilaterally Cardio Jugular venous distension: no JVD Rate: regular rate Rhythm: regular rhythm Heart sounds: S1 normal heart sound present and S2 normal heart sound present GI Inspection: Yes normal to inspection Palpation (GI): Soft to palpation and nontender Auscultation: normal bowel sounds Skin General skin exam: no rashes or lesions noted Neuro General: patient oriented x3 and no focal motor deficits Extrem General: Yes full ROM Psych Appearance: grossly normal Assessment and Plan Assessment & Plan (1) Physical exam: Code(s): Z00.00 - Encounter for general adult medical examination without abnormal findings Plan: Repeat in a year. Orders: Orders Rubella IgG Antibody Today Z23 - Encounter for immunization Rubeola IgG (Measles) Today Z23 - Encounter for immunization Mumps Virus IgG Antibody Today Z23 - Encounter for immunization Thyroid Stimulating Hormone 6 Months E03.9 - Hypothyroidism, unspecified Referrals Neurology Referral R41.3 - Other amnesia Medications: New clotrimazole 1% 1 appl topical BID 30 grams 1RF 4 weeks Coding Level of Care Code Est Pt Prev Care 40-64y(49590) Diagnoses Physical exam Z00.00 Additional Codes RICHMOND-7 Assessment Billing - RICHMOND-7 Assessment Tool: RICHMOND-7 Assessment 28126 ([id number]) Time Spent (min) 33
[2024-02-08 07:36] VITALS: BP 120/70; BMI 36.3
== END 2024-02-08 07:57 | disposition home or self-care (01) ==
PROVIDERS: PCP Internal Medicine; Visit Provider Internal Medicine
DX: Z00.00 Encounter for general adult medical examination without abnormal findings (principal)
CPT/HCPCS: 99396

== ENCOUNTER 2024-02-28 10:22 | Outpatient (REF) | payer OTHER, SELFPAY ==
[2024-03-01 10:19] LABS: Rubella IgG Antibody 2.36 Index
== END 2024-02-28 10:23 | disposition home or self-care (01) ==
LOC: HO.LAB 10:22
PROVIDERS: PCP Internal Medicine; Visit Provider Internal Medicine
DX: Z23 Encounter for immunization (principal)
CPT/HCPCS: 36415; 86735; 86762; 86765

== ENCOUNTER 2024-03-14 09:30 | Outpatient (REF) | payer OTHER, SELFPAY ==
[2024-03-15 12:03] LABS: BV Int Neg Control Negative (Negative); BV Int Pos Control Positive (Positive)
== END 2024-03-14 09:31 | disposition home or self-care (01) ==
LOC: HO.LNP 09:30
PROVIDERS: Advanced Practice Midwife; PCP Internal Medicine; Visit Provider Orthopaedic Surgery
DX: N89.8 Other specified noninflammatory disorders of vagina (principal); M17.12 Unilateral primary osteoarthritis, left knee; Z30.431 Encounter for routine checking of intrauterine contraceptive device
CPT/HCPCS: 20610; 87480; 87510; 87660; 99212; J7318

== ENCOUNTER 2024-03-14 09:30 | Outpatient (AMB) | payer OTHER, SELFPAY ==
[2024-03-14 09:37] VITALS: BMI 36.3
--- NOTE | 2024-03-14 09:37 | MHC.OFFVIS ---
Vital Signs 03/14/24 09:37 Height 5 ft 5 in Weight 218 lb BMI 36.3 Intake Visit Reasons: OV - left knee pain Intake Note: Mckenna is a 49 year old female who presents for a follow up for her Left knee pain. Her pain has gotten worse over the last year in spite of continued non operative treatments. She describes her knee pain as sharp in nature. She has had cortisone injections in the past which gave her minimal relief. She would like to hold off on surgery for as long as possible. She has done physical therapy exercises which aggravated her pain. She has also tried Tylenol and anti-inflammatory medicines which gave her minimal relief. Allergies ketorolac Allergy (Severe, Verified 03/14/24 09:41) Stomach Upset oxycodone [From PERCOCET] Allergy (Intermediate, Verified 03/14/24 09:41) itchy Medication List - Last Reconciled 03/14/24 by William Lock MD acetaminophen 500 mg PO Q6H PRN 30 days clotrimazole 1% 1 appl topical BID 4 weeks cyclobenzaprine 10 mg PO BEDTIME PRN 90 days dicyclomine 20 mg PO TID 30 days levonorgestrel (Mirena) intrauterine levothyroxine 25 mcg PO DAILY 90 days omeprazole 20 mg PO DAILY 90 days simethicone (Gas Relief (simethicone)) 125 mg PO TID-QID PRN zolpidem 10 mg PO BEDTIME PRN 30 days PFSH Medical History Snores Hypothyroid Hypovitaminosis D Moderate major depression Memory loss Elevated TSH Shortness of breath Morbid obesity Constipation by delayed colonic transit GERD (gastroesophageal reflux disease) Insomnia Back pain Surgical History Hx of colonoscopy S/P lumpectomy, left breast History of esophagogastroduodenoscopy (EGD) History of release of tendon History of History of removal of laparoscopic gastric banding device H/O bilateral breast reduction surgery History of abdominoplasty Hx of laparoscopic gastric banding Family History Father HIV (human immunodeficiency virus infection) Mother Osteoporosis Hypertension Sister Crohn disease Fibromyalgia Maternal Grandmother CVD (cardiovascular disease) Stroke Maternal Grandfather Diabetes Prostate cancer Colon cancer Maternal Aunt History of breast cancer Maternal Aunt Endometrial cancer Maternal Uncle Pancreatic cancer Social History Housing: House Are you a primary wound care rn to a significant other at home: No Do you presently have visiting nurse or other home services: No Alcohol intake: current Alcohol intake frequency: a few times a week Alcohol type: beer and hard liquor Patient Tobacco Use Status: Former Tobacco user Quit Date: 2009 Tobacco use type: Cigarette e-Cigarette/Vaping Use: Never Used Second Hand Smoke Exposure: No service: No Current occupational status: employed 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/hazards: No Gender identity: Female Cognitive needs: No Hearing needs: No Vision needs: Yes Female Reproductive History Menstrual Age of Menarche: 13 Physical Exam Vital Signs: BMI result Body Mass Index 36.3 Const Other: Well-nourished well-developed very friendly female awake alert and oriented x3 in no acute distress Extrem Other: Bilateral lower extremity examination shows good capillary refill, no skin lesions noted, normal sensation light touch Left knee examination shows a mild effusion, palpable crepitus with range of motion, pain with range of motion, no instability Office Procedures Joint Injection/Drain Joint Injection/Drain Primary Site: left knee Prep: site was prepped using aseptic technique Injected: 60 mg of (Durolane viscosupplementation) and 1% plain lidocaine Procedure: The patient tolerated the procedure well Coding 48998 - Large joint Procedure code (CPT) selection complete Quality Reporting (2019) Adult ([facility] ) Smoking risk assessment performed?: Yes Patient Tobacco Use Status: Former Tobacco user Results Reviewed Results Reviewed: X-rays of the patient's left knee show joint space narrowing, subchondral sclerosis, no acute bony abnormalities Assessment & Plan Assessment & Plan (1) Arthritis of left knee: Code(s): M17.12 - Unilateral primary osteoarthritis, left knee Category: Medical Plan Ms. Zhao presents with left knee pain due to degenerative joint disease. I had a lengthy discussion with the patient regarding the treatment options. She wishes to hold off on surgery for as long as possible. I agree with this plan. She has not gotten good relief from cortisone injections in the past. Thus, the risks and benefits of a Durolane viscosupplementation injection were discussed at length with the patient. The patient wished to proceed with the injection. Prior to the injection 2 cc of clear fluid were aspirated from the patient's left knee. She tolerated the injection well. She will continue with her home exercise program. She will follow up with me on an as-needed basis should her symptoms not plateau at an unacceptable level over the next few months. Feel free to call me at any time should questions regarding her orthopedic management arise. I spent 22 minutes in reviewing the patient's records and imaging studies, seeing the patient and documenting in the medical record. Orders: Orders AMB Joint Injection/Aspiration Today M17.12 - Unilateral primary osteoarthritis, left knee Coding Level of Care Code Est Pt Level 3 (94011) Diagnoses Arthritis of left knee M17.12 CPT Codes Coding - Large joint: 35295 - Large joint ([id number])
== END 2024-03-14 10:10 | disposition home or self-care (01) ==
PROVIDERS: PCP Internal Medicine; Visit Provider Orthopaedic Surgery
DX: M17.12 Unilateral primary osteoarthritis, left knee (principal)
CPT/HCPCS: 20610; 99213

== ENCOUNTER 2024-03-14 14:25 | Outpatient (AMB) | payer OTHER, SELFPAY ==
[2024-03-14 14:38] VITALS: BP 102/60; BMI 35.3
--- NOTE | 2024-03-14 14:38 | A.OFFVIS_ITS ---
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[employer]) Allergies ketorolac Allergy (Severe, Verified 03/14/24 14:38) Stomach Upset oxycodone [From PERCOCET] Allergy (Intermediate, Verified 03/14/24 14:38) itchy Medication List - Last Reconciled 03/14/24 by Jane Guzmán CNM acetaminophen 500 mg PO Q6H PRN 30 days clotrimazole 1% 1 appl topical BID 4 weeks cyclobenzaprine 10 mg PO BEDTIME PRN 90 days dicyclomine 20 mg PO TID 30 days levonorgestrel (Mirena) intrauterine levothyroxine 25 mcg PO DAILY 90 days omeprazole 20 mg PO DAILY 90 days simethicone (Gas Relief (simethicone)) 125 mg PO TID-QID PRN zolpidem 10 mg PO BEDTIME PRN 30 days Is last menstrual period known: No (no menses MIRENA) Post menopausal: No HPI HPI IUD Check: Details: Patient is here for a Check on her IUD was inserted in fall when the other 1 was removed. She is not having any problems with it whatsoever she does not get periods. The only thing is that every now and then she gets malodorous discharge that she says it is BV she has used the gel in the past and in the last few months she is used boric acid perhaps every 2-3 months and it works for her. Sometimes her notices a white chunky discharge after relations but she has no itching. She has been losing weight using an herbal type natural shake with fiber and being extremely careful about what she eats and avoiding all carbs and going to the gym at 5 in the morning and walking. 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 We explored the possibility that perhaps she may not be completely emptying her bladder and we discussed strategies to work at that. Her discharge appears completely within normal limits today scant and clear and swab was taken for BV Jennifer and trich she has no worries at all about STDs. Mirena string visible and normal pelvic exam string was palpable as well challenging to visualize the cervix secondary to redundant vaginal tissue. Good tone [facility] Medical History Snores Hypothyroid Hypovitaminosis D Moderate major depression Memory loss Elevated TSH Shortness of breath Morbid obesity Constipation by delayed colonic transit GERD (gastroesophageal reflux disease) Insomnia Back pain Surgical History Hx of colonoscopy S/P lumpectomy, left breast History of esophagogastroduodenoscopy (EGD) History of release of tendon History of History of removal of laparoscopic gastric banding device H/O bilateral breast reduction surgery History of abdominoplasty Hx of laparoscopic gastric banding Family History Father HIV (human immunodeficiency virus infection) Mother Osteoporosis Hypertension Sister Crohn disease Fibromyalgia Maternal Grandmother CVD (cardiovascular disease) Stroke Maternal Grandfather Diabetes Prostate cancer Colon cancer Maternal Aunt History of breast cancer Maternal Aunt Endometrial cancer Maternal Uncle Pancreatic cancer Social History Housing: House Are you a primary home health caregiver to a significant other at home: No Do you presently have visiting nurse or other home services: No Alcohol intake: current Alcohol intake frequency: a few times a week Alcohol type: beer and hard liquor Patient Tobacco Use Status: Former Tobacco user Quit Date: 2009 Tobacco use type: Cigarette e-Cigarette/Vaping Use: Never Used Second Hand Smoke Exposure: No service: No Current occupational status: employed 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 Challenging to visualize cervix secondary to redundant vaginal tissue from prior obesity. Cervix pink smooth clear with no abnormal discharge edge of Mirena string visible and it is palpable uterus midposition mobile nontender. Very good tone with Kegel External Female Exam: normal external appearance Speculum Exam - Vagina: normal appearance of the vagina and normal vaginal discharge Speculum Exam - Cervix: normal appearance of the cervix Bimanual exam- vagina & uterus: normal bimanual exam, uterine size normal, consistency normal, uterine mobility normal, uterine shape normal and non-tender Bimanual Exam- Adnexa, other: normal adnexae, no masses and No adnexal tenderness Quality Reporting (2019) Adult ([facility] 13812/29/68) Smoking risk assessment performed?: Yes Patient Tobacco Use Status: Former Tobacco user Assessment & Plan Assessment & Plan (1) Problematic vaginal discharge: Comment: Patient complains of recurrent BV symptoms issues discussed in great detail condoms recommended if possible. Metronidazole gel script sent for p.r.n. rare use. Code(s): N89.8 - Other specified noninflammatory disorders of vagina Category: Medical (2) Presence of 52 mg levonorgestrel-releasing intrauterine device (IUD): Comment: This 1 was placed in August of 2018,; exchanged in 2022. Code(s): Z97.5 - Presence of (intrauterine) contraceptive device Category: Social Hx Plan Patient is here for a Check on her IUD was inserted in fall when the other 1 was removed. She is not having any problems with it whatsoever she does not get periods. The only thing is that every now and then she gets malodorous discharge that she says it is BV she has used the gel in the past and in the last few months she is used boric acid perhaps every 2-3 months and it works for her. Sometimes her notices a white chunky discharge after relations but she has no itching. She has been losing weight using an herbal type natural shake with fiber and being extremely careful about what she eats and avoiding all carbs and going to the gym at 5 in the morning and walking. 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 We explored the possibility that perhaps she may not be completely emptying her bladder and we discussed strategies to work at that. Her discharge appears completely within normal limits today scant and clear and swab was taken for BV Jennifer and trich she has no worries at all about STDs. Mirena string visible and normal pelvic exam string was palpable as well challenging to visualize the cervix secondary to redundant vaginal tissue. Good tone w Lorraine She also had an injection of gel placed in her left knee today and she is hoping that it will help. Extensive discussion about vaginal floor BV and when to treat 1 to bother and her healthy eating habits I congratulated her on her hard work and weight loss. Orders: Orders Bacterial Vaginosis Panel Today N89.8 - Other specified noninflammatory disorders of vagina Coding Level of Care Code Est Pt Level 3 (96403) Diagnoses Problematic vaginal discharge N89.8 Presence of 52 mg levonorgestrel-releasing intrauterine device (IUD) Z97.5
== END 2024-03-14 16:43 | disposition home or self-care (01) ==
PROVIDERS: PCP Internal Medicine; Visit Provider Advanced Practice Midwife
DX: N89.8 Other specified noninflammatory disorders of vagina (principal); Z30.431 Encounter for routine checking of intrauterine contraceptive device
CPT/HCPCS: 99213

== ENCOUNTER 2024-04-16 15:55 | Outpatient (AMB) | payer OTHER, SELFPAY ==
--- NOTE | 2024-04-16 16:42 | AM.OFFVISNUR ---
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
== END 2024-04-16 17:49 | disposition home or self-care (01) ==
PROVIDERS: PCP Internal Medicine; Visit Provider Internal Medicine
DX: Z23 Encounter for immunization (principal)
CPT/HCPCS: 90471; 90707

== ENCOUNTER 2024-06-15 15:22 | Outpatient (AMB) | payer OTHER, SELFPAY ==
--- NOTE | 2024-06-15 15:24 | A.OFFVIS_ITS ---
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 Doing well with concerns: Vaginal odor, has had bacterial vaginosis in the past and wants a check for all cultures today. She denies any urinary symptoms. Has some upper GI discomfort and plans to see her primary care next month. She tries to eat healthy and stays active with exercise-walks. Occasional spotting w/Mirena. Having some hot flashes. Currently is sexually active. STI screening offered; she accepts. Family history of breast, ovarian or colon cancer. Last pap smear 2019, negative. Mammogram: 2023. [facility] Medical History Snores Hypothyroid Hypovitaminosis D Moderate major depression Memory loss Elevated TSH Shortness of breath Morbid obesity Constipation by delayed colonic transit GERD (gastroesophageal reflux disease) Insomnia Back pain Surgical History Hx of colonoscopy S/P lumpectomy, left breast History of esophagogastroduodenoscopy (EGD) History of release of tendon History of History of removal of laparoscopic gastric banding device H/O bilateral breast reduction surgery History of abdominoplasty Hx of laparoscopic gastric banding Family History Father HIV (human immunodeficiency virus infection) Mother Osteoporosis Hypertension Sister Crohn disease Fibromyalgia Maternal Grandmother CVD (cardiovascular disease) Stroke Maternal Grandfather Diabetes Prostate cancer Colon cancer Maternal Aunt History of breast cancer Maternal Aunt Endometrial cancer Maternal Uncle Pancreatic cancer Maternal Aunt Ovarian cancer Social History Housing: House Are you a primary manager managed care to a significant other at home: No Do you presently have visiting nurse or other home services: No Alcohol intake: current Alcohol intake frequency: a few times a week Alcohol type: beer and hard liquor Patient Tobacco Use Status: Former Tobacco user Tobacco use type: Cigarette e-Cigarette/Vaping Use: Never Used Second Hand Smoke Exposure: No service: No Current occupational status: employed 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/hazards: No Gender identity: Female Cognitive needs: No Hearing needs: No Vision needs: Yes Female Reproductive History Menstrual Age of Menarche: 13 control method: progestin IUCD (Mirena 09/29) Total pregnancies: 1 Full term: 1 Number of Living Children: 1 Date of last pap smear: 10/17/20 (neg pap and hpv) History of abnormal pap smear: Yes (01/18 ascus 03/23 ascus) Date of Mammogram: 01/07/24 (Birad 1) Review of Systems Const All systems reviewed & are unremarkable except as noted in HPI and below Reports as per HPI Eyes Reports no additional complaints ENT Reports no additional complaints Card Reports no additional complaints Resp Reports no additional complaints GI Reports as per HPI and Reports no additional complaints Reports as per HPI Musc Reports no additional complaints Skin/Breast Reports as per HPI Neuro Reports no additional complaints Psych Reports no additional complaints Endo Reports no additional complaints Ghanshyam/Lymph Reports no additional complaints Aller/Immun Reports no additional complaints Physical Exam Vital Signs: Last Vital Signs BP 120/80 06/15/24 15:26 BMI result Body Mass Index 32.8 Const General: cooperative, healthy appearing, no acute distress, well developed and alert Orientation/consciousness: patient oriented x3 HEENT Head: Yes normal to inspection Eyes General: appearance normal, both eyes and all related structures Neck Neck: Yes normal visual inspection Thyroid: Thyroid normal Chest Chest palpation & inspection: normal inspection of the chest and other (no puckering, dimpling, peau de orange, retraction, discharge, masses) Breast/axilla inspection: normal inspection of the breasts Breast/axilla palpation: normal palpation of the breasts Resp Effort & Inspection: normal respiratory effort GI Inspection: Yes normal to inspection and Yes scar (Slightly tender with palpation on the right side of her scar) Palpation (GI): Soft to palpation Rectal Exam - Female: deferred General: Yes bladder normal to palpation External Female Exam: normal external appearance and normal appearance of the urethra Speculum Exam - Vagina: normal appearance of the vagina, normal palpation and normal vaginal discharge Speculum Exam - Cervix: normal appearance of the cervix, normal palpation and Other cervical findings present (IUD strings present at the os) Bimanual exam- vagina & uterus: normal bimanual exam, normal palpation, uterine size normal, bladder normal to palpation, normal palpation and non-tender Bimanual Exam- Adnexa, other: no masses Skin General skin exam: no rashes or lesions noted Rashes: no rashes Neuro General: patient oriented x3 Cognition (Neuro): normal cognition Extrem General: Yes normal to inspection Psych Attitude: cooperative Thought process: Normal thought process present Quality Reporting (2019) Adult ([facility] 13812/29/68) Smoking risk assessment performed?: Yes Patient Tobacco Use Status: Former Tobacco user Assessment & Plan Assessment & Plan (1) Well woman exam with routine gynecological exam: Code(s): Z01.419 - Encounter for gynecological examination (general) (routine) without abnormal findings Category: Medical (2) Vaginal odor: Code(s): N89.8 - Other specified noninflammatory disorders of vagina Category: Medical Plan Discussed: Current recommendations for pap smears per ASCCP guidelines. Breast awareness and periodic breast exams. BV, GC and chlamydia and blood work ordered. Await for results for plan of care. Reviewed use of probiotics, boric acid and condoms. Maintain a healthy lifestyle including a well balanced diet and routine exercise. Follow up with the primary care for upper GI symptoms, discussed scar tissue discomfort possibly consider evaluation with pain management it needed to be evaluation for myofascial pain. Mammogram yearly. Patient verbalizes understanding and agrees to the plan of care. She was given opportunity to ask questions and all questions were answered to the best of my ability. 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 This note is constructed using voice recognition software. While every effort has been made to ensure accuracy, panel sewer errors may have been included. Orders: Orders Syphilis Screen Today Z20.2 - Contact with and (suspected) exposure to infections with a predominantly sexual mode of transmission Bacterial Vaginosis Panel Today N89.8 - Other specified noninflammatory disorders of vagina CT NG by PCR Today N89.8 - Other specified noninflammatory disorders of vagina HIV Ab/Ag Today Z20.2 - Contact with and (suspected) exposure to infections with a predominantly sexual mode of transmission Hepatitis C Antibody Reflex Today Z20.2 - Contact with and (suspected) exposure to infections with a predominantly sexual mode of transmission Hepatitis B Core Antibody Today Z20.2 - Contact with and (suspected) exposure to infections with a predominantly sexual mode of transmission Coding Level of Care Code Est Pt Prev Care 40-64y(89024) Diagnoses Well woman exam with routine gynecological exam Z01.419 Vaginal odor N89.8
[2024-06-15 15:26] VITALS: BP 120/80; BMI 32.8
== END 2024-06-15 16:00 | disposition home or self-care (01) ==
PROVIDERS: PCP Internal Medicine; Visit Provider Advanced Practice Midwife
DX: Z01.419 Encounter for gynecological examination (general) (routine) without abnormal findings (principal); N89.8 Other specified noninflammatory disorders of vagina
CPT/HCPCS: 99396

== ENCOUNTER 2024-06-15 15:22 | Outpatient (REF) | payer OTHER, SELFPAY ==
[2024-06-15 18:51] LABS: Thyroid Stimulating Hormone 1.76 uIU/mL (0.32-4.0)
[2024-06-16 02:22] LABS: CT PCR NOT DETECTED (Not Detect.); NG PCR NOT DETECTED (Not Detect.)
[2024-06-16 11:28] LABS: Bacterial Vaginosis PCR NEGATIVE (Negative); Candida Group PCR NOT DETECTED (Not Detect); Candida glab krusei PCR NOT DETECTED (Not Detect); Trichomonas vaginalis PCR NOT DETECTED (Not Detect)
[2024-06-17 03:53] LABS: Syphilis Screen Nonreactive (Nonreactive)
[2024-06-17 04:16] LABS: HBc Num1 0.21 S/CO (0.00-0.79); HIV AB/AG Nonreactive (Nonreactive); HIV Num 1 0.06 S/CO (0.00-0.99); Hepatitis B Core Antibody Nonreactive (Nonreactive); ~HepC Num1 0.21 S/CO (0.00-0.79); ~Hepatitis C Antibody Nonreactive (Nonreactive)
== END 2024-06-15 15:23 | disposition home or self-care (01) ==
LOC: HO.LAB 15:22
PROVIDERS: PCP Internal Medicine; Visit Provider Advanced Practice Midwife
DX: N89.8 Other specified noninflammatory disorders of vagina (principal); Z20.2 Contact with and (suspected) exposure to infections with a predominantly sexual mode of transmission; E03.9 Hypothyroidism, unspecified; Z01.419 Encounter for gynecological examination (general) (routine) without abnormal findings
CPT/HCPCS: 0352U; 36415; 84443; 86704; 86780; 86803; 87389; 87491; 87591; 99396

== ENCOUNTER 2024-06-15 15:57 | Outpatient (REF) | payer OTHER, SELFPAY | END 2024-06-15 15:58 | disposition home or self-care (01) | LOC: HO.LNP 15:57 | PROVIDERS: Visit Provider Advanced Practice Midwife | DX: Z13.89 Encounter for screening for other disorder (principal) ==

== ENCOUNTER 2024-07-31 09:36 | Outpatient (AMB) | payer OTHER, SELFPAY ==
--- NOTE | 2024-07-31 09:59 | MHC.OFFVIS ---
Vital Signs 07/31/24 10:00 Height 5 ft 5 in Weight 194 lb BMI 32.3 BP 120/80 Blood Pressure Location Rt brachial Position Sitting Intake Visit Reasons: INP-Other amnesia Intake Note: Patient presents for other amnesia. patient stating she's forgetting things and it's progressing for a year now. patient has family history of alzheimers. Allergies ketorolac Allergy (Severe, Verified 07/31/24 10:05) Stomach Upset oxycodone [From PERCOCET] Allergy (Intermediate, Verified 07/31/24 10:05) itchy Medication List - Last Reconciled 07/31/24 by Ale Damico, EDGER AUTOMATIC acetaminophen 500 mg PO Q6H PRN 30 days clotrimazole 1% 1 appl topical BID 4 weeks cyclobenzaprine 10 mg PO BEDTIME PRN 90 days dicyclomine 20 mg PO TID 30 days levonorgestrel (Mirena) intrauterine levothyroxine 25 mcg PO DAILY 90 days omeprazole 20 mg PO DAILY 90 days simethicone (Gas Relief (simethicone)) 125 mg PO TID-QID PRN zolpidem 10 mg PO BEDTIME PRN 30 days HPI Comments Details: Right-handed 49-yr-old female presents for neurological evaluation of cognitive dififuclties. Pt reports she started having memory issues about 1 yr ago, which have slolwy progressing. Pt reports she that she is forgetting parts of conversations from the day prior. She may forget what she was talking about while she is speaking. She may forget where she puts things, such as her phone. She may forget what time she is supposed to do something- needs to call and confirm. She may forget how the directions on how to get somewhere. She is prone to leave the stove on. She recently cooked rice and beans, but forgot to add the beans. She may forget to submit her time sheets on time- the company she works for often has to call her to remind her. She notes that she needs to write everything done and is better if she does something right away. Some days are better than others. Generally her mood is good. Generally active, busy, enjoys doing projects. She is prone to thinking of her to do lists when trying to fall asleep or when she wakes up. She uses Zolpidem qhs to help her shut her mind down, which helps her to fall asleep but not fall back asleep if she wakes up. She has a h/o GABBIE, but lost weight and stopped snoring so stopped using CPAP. Did struggle using CPAP as she was not taking Zolpidem at that time. She does get nocturnal leg cramps- uses Mag which helps some. Denies restless sleep. Can doze off if inactive. She has always been active and wanting to go to do something. She is prone to procrastinating- states this is a newer symptom, but then notes that she now pays her excise tax/registration fees as soon as she gets it because many times she has had to pay excessive late fees and drove her car w/ lapsed registration x's 6 months. Uses a list to make sure she pays all her bills to make sure she pays them all. She states he cannot watch a long movie, she has to get up and do something else. Does also have some restless leg symptoms. She recently noticed that she was feeling depressed a few months ago, was noticing decreased energy, decreased motivation. She states through self-talk and checking in within herself, she was able to break this cycle. Pt normal gestational and early development. Pt reports she struggled in school academically- thinks she may have undiagnosed dyslexia, struggles w/ reading and writing. She left school in 9th grade d/t academic and social struggles. She earned her GED at age 19 yo. 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 PMH included- hypothyroidism- currently euthyroid. She is concerned as she has family h/o dementia: Paternal grandmother onset at age 55-60, and great aunts- unsure of age at onset. Mother is already showing signs of forgetfulness- but pt states her test for dementia was ok. Maternal grandmother- onset of dementia at age 70. Denies family h/o ADD/ADHD. Patient and family are from [place]. [facility] Medical History Snores Hypothyroid Hypovitaminosis D Moderate major depression Memory loss Elevated TSH Shortness of breath Morbid obesity Constipation by delayed colonic transit GERD (gastroesophageal reflux disease) Insomnia Back pain Surgical History Hx of colonoscopy S/P lumpectomy, left breast History of esophagogastroduodenoscopy (EGD) History of release of tendon History of History of removal of laparoscopic gastric banding device H/O bilateral breast reduction surgery History of abdominoplasty Hx of laparoscopic gastric banding Family History Father HIV (human immunodeficiency virus infection) Mother Osteoporosis Hypertension Sister Crohn disease Fibromyalgia Maternal Grandmother CVD (cardiovascular disease) Stroke Maternal Grandfather Diabetes Prostate cancer Colon cancer Maternal Aunt History of breast cancer Maternal Aunt Endometrial cancer Maternal Uncle Pancreatic cancer Maternal Aunt Ovarian cancer Social History Housing: House Are you a primary personal carer to a significant other at home: No Do you presently have visiting nurse or other home services: No Alcohol intake: current Alcohol intake frequency: holidays/special occasions only Alcohol type: beer and hard liquor Patient Tobacco Use Status: Former Tobacco user Tobacco use type: Cigarette e-Cigarette/Vaping Use: Never Used Second Hand Smoke Exposure: No service: No Current occupational status: employed 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 Good verbal proficiency. Mild shifting in her sheet. General: patient oriented x3, CN's II-XI intact bilaterally and deep tendon reflexes 2+ bilaterally Gait exam (Neuro): Normal gait present Motor exam (neuro): 5/5 motor strength present throughout Psych Appearance: grossly normal Mental Status: mental status grossly normal Speech and movement: Normal speech and movement present Affect: normal affect Attitude: cooperative Thought process: Normal thought process present Thought content: Normal thought content present Insight: Good insight present (Psych) Orientation What is the (year) (season) (date) (day) (month)?: year, season, date, day and month Where are we (state) (county) (town or city) (hospital) (floor)?: state, county, hospital/clinic and floor Registration Name of 3 unrelated objects clearly and slowly, then ask patient to repeat all 3 of them. (1st repeat determines score. Make sure they can repeat all three): object 1, object 2 and object 3 Attention & Calculation (CHOOSE ONE) Spell WORLD backwards (DLROW): 5 letters Recall Ask patient to repeat the 3 items from question #3.: object 1 and object 2 Language Show patient a wristwatch & ask what it is. Repeat for pencil.: watch and pencil Ask the patient to repeat the phrase 'No ifs, ands, or buts' after you.: correct Ask the patient to 'take a piece of paper with their right hand' 'fold paper in half' 'place paper on floor': take paper in right hand, fold paper in half and place paper on floor Print the sentence 'CLOSE YOUR EYES' on a piece. If patient actually closes eyes then score.: followed written direction Give patient a blank piece of paper & ask to write a sentence. Score if it contains a noun & verb.: sentence contains subject and verb Ask patient to copy figure of intersecting pentagons exactly. Score if all 10 angles & 2 intersects are included.: all 10 angles present & 2 are intersected Score Score: 28 Quality Reporting (2019) Adult ([facility] 138/12/29/68) Smoking risk assessment performed?: Yes Patient Tobacco Use Status: Former Tobacco user Assessment & Plan Assessment & Plan (1) Memory loss: Code(s): R41.3 - Other amnesia Category: Medical (2) Insomnia: Code(s): G47.00 - Insomnia, unspecified Category: Medical Qualifiers: Insomnia type: unspecified Qualified Code(s): G47.00 - Insomnia, unspecified (3) Muscle cramps: Code(s): R25.2 - Cramp and spasm Category: Medical (4) Anemia: Code(s): D64.9 - Anemia, unspecified Category: Medical (5) Family history of dementia: Code(s): Z81.8 - Family history of other mental and behavioral disorders Category: Medical (6) Obstructive sleep apnea: Code(s): G47.33 - Obstructive sleep apnea (adult) (pediatric) Category: Medical (7) Excessive daytime sleepiness: Code(s): G47.19 - Other hypersomnia Category: Medical (8) Family history of dementia: Code(s): Z81.8 - Family history of other mental and behavioral disorders Category: Medical Plan Pt advised to undergo brain MRI d/t worsening cognitive difficulties in setting of family h/o dementia. Will check labs for common etiologies of cognitive difficulties. Pt advised to undergo f/u HST to assess status of sleep apnea. Pt advised to undergo neuro-psych and psychiatric eval to assess for indications of MCI, early symptoms of dementia, or possible ADD/ADHD in setting of family h/o early onset dementia and possible undiagnosed learning disorder. 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 Trial Lexapro 5mg qd. Goal to wean off Zolpidem as this may negatively impact cognition. Upon review of above, consider genetic testing for AD. Patient seen in collaboration with Dr. Osei. Orders: Orders RT home sleep study Today G47.19 - Other hypersomnia, G47.33 - Obstructive sleep apnea (adult) (pediatric), R06.83 - Snoring Erythrocyte Sedimentation Rate Today D64.9 - Anemia, unspecified, R25.2 - Cramp and spasm, R41.3 - Other amnesia CRP High Sensitivity Today D64.9 - Anemia, unspecified, R25.2 - Cramp and spasm, R41.3 - Other amnesia LACY Reflex Titer and Pattern Today D64.9 - Anemia, unspecified, R25.2 - Cramp and spasm, R41.3 - Other amnesia Homocysteine Today D64.9 - Anemia, unspecified, R25.2 - Cramp and spasm, R41.3 - Other amnesia Ferritin Today D64.9 - Anemia, unspecified, R25.2 - Cramp and spasm, R41.3 - Other amnesia Methylmalonic Acid Today D64.9 - Anemia, unspecified, R25.2 - Cramp and spasm, R41.3 - Other amnesia Creatine Kinase Total Today D64.9 - Anemia, unspecified, R25.2 - Cramp and spasm, R41.3 - Other amnesia MR head/brain wo/w con Today R41.3 - Other amnesia, Z81.8 - Family history of other mental and behavioral disorders Vitamin B12 and Folate Today D64.9 - Anemia, unspecified, R25.2 - Cramp and spasm, R41.3 - Other amnesia Hemoglobin A1c Today D64.9 - Anemia, unspecified, R25.2 - Cramp and spasm, R41.3 - Other amnesia Rheumatoid Factor Today D64.9 - Anemia, unspecified, R25.2 - Cramp and spasm, R41.3 - Other amnesia Syphilis Screen Today D64.9 - Anemia, unspecified, R25.2 - Cramp and spasm, R41.3 - Other amnesia HIV Ab/Ag Today D64.9 - Anemia, unspecified, R25.2 - Cramp and spasm, R41.3 - Other amnesia IRON PROFILE Today D64.9 - Anemia, unspecified, R25.2 - Cramp and spasm, R41.3 - Other amnesia Magnesium Today D64.9 - Anemia, unspecified, R25.2 - Cramp and spasm, R41.3 - Other amnesia Referrals Psychiatry Outpatient Consultation Service R25.2 - Cramp and spasm Speech and Hearing Referral R41.3 - Other amnesia Neuropsychiatry Referral R41.3 - Other amnesia, Z81.8 - Family history of other mental and behavioral disorders Medications: New escitalopram oxalate (Lexapro) 5 mg PO DAILY 30 days 30 tabs 3RF Coding Level of Care Code New Pt Level 4 (98245) Diagnoses Memory loss R41.3 Insomnia, unspecified type G47.00 Insomnia type: unspecified Muscle cramps R25.2 Anemia D64.9 Family history of dementia Z81.8 Obstructive sleep apnea G47.33 Excessive daytime sleepiness G47.19 [place] Sleepiness Scale Questions Sitting and reading: moderate chance of dozing Watching TV: moderate chance of dozing Sitting inactive in a theater, movie etc.: would never doze As a passenger in a car for an hour without break: would never doze Lying down in the afternoon when circumstances permit: high chance of dozing Sitting and talking to someone: would never doze Sitting quietly after lunch without alcohol: high chance of dozing In a car, while stopped for a few minutes in the traffic: would never doze ESS < 10: normal, ESS > 12: pathologic: 10
[2024-07-31 10:00] VITALS: BP 120/80; BMI 32.3
== END 2024-07-31 11:52 | disposition home or self-care (01) ==
PROVIDERS: PCP Internal Medicine; Visit Provider Nurse Practitioner Family
DX: R41.3 Other amnesia (principal); G47.00 Insomnia, unspecified; R25.2 Cramp and spasm; D64.9 Anemia, unspecified; Z81.8 Family history of other mental and behavioral disorders; G47.33 Obstructive sleep apnea (adult) (pediatric); G47.19 Other hypersomnia
CPT/HCPCS: 99204

== ENCOUNTER 2024-07-31 09:36 | Outpatient (REF) | payer OTHER, SELFPAY ==
[2024-07-31 17:03] LABS: Estimated Average Glucose 100 mg/dL; Hemoglobin A1c % 5.1 % (<6.0)
[2024-07-31 17:19] LABS: Erythrocyte Sedimentation Rate 8 MM/HR (0-20)
[2024-07-31 17:44] LABS: Rheumatoid Factor < 13.0 IU/mL (<15.0)
[2024-07-31 18:06] LABS: Vitamin B12 > 2000 pg/mL (200-900)
[2024-07-31 18:42] LABS: Ferritin 33 ng/mL (10-250); Iron 60 mcg/dL (30-160); Magnesium 2.1 mg/dL (1.6-2.6); Percent Iron Saturation 23 % (15-50); Total Iron Binding Capacity 257 mcg/dL (228-428); Unsaturated Iron Binding 197 ug/dL
[2024-08-01 08:50] LABS: HIV AB/AG Nonreactive (Nonreactive); HIV Num 1 0.04 S/CO (0.00-0.99)
[2024-08-01 08:52] LABS: Syphilis Screen Nonreactive (Nonreactive)
[2024-08-01 09:15] LABS: CRP High Sensitivity 0.6 mg/L
[2024-08-02 11:29] LABS: Anti Nuclear Antibody Screen NEGATIVE (NEGATIVE)
[2024-08-03 19:34] LABS: Methylmalonic Acid 133 nmol/L (55-335)
[2024-08-04 22:08] LABS: Homocysteine 6.6 umol/L (<10.4)
== END 2024-07-31 09:37 | disposition home or self-care (01) ==
LOC: HO.LAB 09:36
PROVIDERS: PCP Internal Medicine; Visit Provider Nurse Practitioner Family
DX: D64.9 Anemia, unspecified (principal); R41.3 Other amnesia; R25.2 Cramp and spasm; G47.00 Insomnia, unspecified; Z81.8 Family history of other mental and behavioral disorders; G47.33 Obstructive sleep apnea (adult) (pediatric); G47.19 Other hypersomnia
CPT/HCPCS: 36415; 82550; 82607; 82728; 82746; 83036; 83090; 83540; 83735; 83921; 85652; 86038; 86141; 86431; 86780; 87389; 99202

== ENCOUNTER 2024-08-14 07:52 | Outpatient (AMB) | payer OTHER, SELFPAY ==
[2024-08-14 07:58] VITALS: BP 120/78; BMI 31.1
--- NOTE | 2024-08-14 07:58 | MHC.PC.OV ---
Vital Signs 08/14/24 07:58 Height 5 ft 5 in Weight 187 lb BMI 31.1 BP 120/78 Blood Pressure Location Lt brachial Position Sitting Intake Visit Reasons: thyroid, insomnia Intake Note: Patient here for a follow up Thyroid, Insomnia Soil Conservationist Required: No Accompanied by: Self / Same As Patient Allergies ketorolac Allergy (Severe, Verified 08/14/24 08:06) Stomach Upset oxycodone [From PERCOCET] Allergy (Intermediate, Verified 08/14/24 08:06) itchy Medication List - Last Reconciled 08/14/24 by Kusum Ribeiro MD acetaminophen 500 mg PO Q6H PRN 30 days cyclobenzaprine 10 mg PO BEDTIME PRN 90 days dicyclomine 20 mg PO TID 30 days escitalopram oxalate (Lexapro) 5 mg PO DAILY 30 days levonorgestrel (Mirena) intrauterine levothyroxine 25 mcg PO DAILY 90 days omeprazole 20 mg PO DAILY 90 days simethicone (Gas Relief (simethicone)) 125 mg PO TID-QID PRN zolpidem 10 mg PO BEDTIME PRN 30 days Tobacco use date assessed: 02/08/24 Dental Screening Dental Screen Date: 02/08/24 HPI HPI Comments History of Present Illness Details This is a 49-year-old female with moderate major depression, hypothyroidism and insomnia that comes today complaining of an abdominal pain involving epigastrium and right upper quadrant that has been present for about a year. Had colonoscopy last year and saw Gastroenterology which recommended a specific diet. She has been intentionally losing weight. Depression has been stable with escitalopram. Last TSH was normal and this will be repeated. Neurologist wants her to discontinue zolpidem and she would like something to sleep and I will start her on mirtazapine at bedtime. No chest pain or shortness on breath. [facility] Medical History (Updated 08/14/24 @ 09:24 by Kusum Ribeiro MD) Moderate major depression Snores Hypothyroid Hypovitaminosis D Memory loss Elevated TSH Shortness of breath Morbid obesity Constipation by delayed colonic transit GERD (gastroesophageal reflux disease) Insomnia Back pain Surgical History Hx of colonoscopy S/P lumpectomy, left breast History of esophagogastroduodenoscopy (EGD) History of release of tendon History of History of removal of laparoscopic gastric banding device H/O bilateral breast reduction surgery History of abdominoplasty Hx of laparoscopic gastric banding Family History Father HIV (human immunodeficiency virus infection) Mother Osteoporosis Hypertension Sister Crohn disease Fibromyalgia Maternal Grandmother CVD (cardiovascular disease) Stroke Maternal Grandfather Diabetes Prostate cancer Colon cancer Maternal Aunt History of breast cancer Maternal Aunt Endometrial cancer Maternal Uncle Pancreatic cancer Maternal Aunt Ovarian cancer Social History Housing: House Are you a primary patient care specialist to a significant other at home: No Do you presently have visiting nurse or other home services: No Alcohol intake: current Alcohol intake frequency: holidays/special occasions only Alcohol type: beer and hard liquor Patient Tobacco Use Status: Former Tobacco user Tobacco use type: Cigarette e-Cigarette/Vaping Use: Never Used Second Hand Smoke Exposure: No service: No Current occupational status: employed 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 Josh Keita, Shani aHro, Rocky Sotelo and colleagues, with an educational monica from [employer]. Review of Systems Const All systems reviewed & are unremarkable except as noted in HPI and below Card Denies chest pain at rest, Denies chest pain with activity, Denies edema, Denies irregular heart rhythm, Denies claudication, Denies dyspnea, Denies dyspnea on exertion, Denies orthopnea, Denies paroxysmal nocturnal dyspnea and Denies slow heart rate Resp Denies cough, Denies dyspnea and Denies dyspnea on exertion GI Denies abdominal pain, Denies change in bowel habits, Denies excessive flatus, Denies nausea and Denies vomiting Denies urinary incontinence, Denies urinary hesitancy and Denies urinary urgency Musc Denies atrophy, Denies deformity and Denies limited range of motion Skin/Breast Denies bleeding lesions, Denies changing lesions and Denies rash Physical exam (Primary Care) Vital Signs: Last Vital Signs BP 120/78 08/14/24 07:58 BMI result Body Mass Index 31.1 BMI Assessment/Plan discussion: High BMI High, discussed plan: lifestyle, weight reduction, dietary and physical activity Tobacco/Smoking Status: Tobacco use Status Tobacco use date assessed 02/08/24 08/14/24 08:04 Patient Tobacco Use Status Former Tobacco user 08/14/24 08:04 Tobacco use type Cigarette 08/14/24 08:04 e-Cigarette/Vaping Use Never Used 08/14/24 08:04 Thrive Assessment: Date of Thrive Assessment Date Thrive assessed 02/08/24 08/14/24 08:04 Resp Effort & Inspection: normal respiratory effort Auscultation: clear to auscultation bilaterally Cardio Jugular venous distension: no JVD Rate: regular rate Rhythm: regular rhythm Heart sounds: S1 normal heart sound present and S2 normal heart sound present Extrem General: Yes full ROM Office Procedures Flu Questionnaire Does the patient have a severe egg allergy?: No Does the patient have severe life threatening allergies?: No Does the patient have a fever or illness today?: No Has the patient ever had Guillain-Lengby Syndrome?: No Has the patient ever had any past reaction to a flu shot?: No Immunizations Fluarix Triv 2410-1044 (PF) 45 mcg (15 mcg x 3)/0.5 mL IM syringe Performing Provider: Kusum Ribeiro MD [place] [facility] [place] [facility] [place] [facility] Administered by: BLADIMIR [place] on 08/14/24 08:21 Dose Route Admin Location Dispensed Lot Number Expiration Date [facility] Director Of Student Financial Services 0.5 mL IM Left Deltoid 0.5 mL [id number] 05/06/25 08811-401-52 mEgo VIS Given Date VIS Provided VIS Publication Date 08/14/24 Single Vaccine 21 Eligibility Eligibility Date Funding Source Not [facility] Eligible 08/14/24 Private Coding Level of Care Code Est Pt Level 4 (28571) Complex EM visit Add On G2211 Diagnoses Abdominal pain R10.9 Moderate major depression F32.1 Hypothyroidism E03.9 Insomnia, unspecified type G47.00 Insomnia type: unspecified Time Spent (min) 23 Assessment & Plan Assessment & Plan (1) Abdominal pain: Code(s): R10.9 - Unspecified abdominal pain Category: Medical Plan: Ultrasound of the abdomen order to rule out cholelithiasis. (2) Moderate major depression: Code(s): F32.1 - Major depressive disorder, single episode, moderate Category: Medical Plan: Continue escitalopram. (3) Hypothyroidism: Code(s): E03.9 - Hypothyroidism, unspecified Category: Medical Plan: Continue levothyroxine. Monitor TSH. (4) Insomnia: Code(s): G47.00 - Insomnia, unspecified Category: Medical Qualifiers: Insomnia type: unspecified Qualified Code(s): G47.00 - Insomnia, unspecified Plan: Discontinue zolpidem. Start mirtazapine at bedtime. Orders: Orders Influenza [id number] Immunization Today Z23 - Encounter for immunization US abdomen comp w elastography Today R10.9 - Unspecified abdominal pain Thyroid Stimulating Hormone Today E03.9 - Hypothyroidism, unspecified Medications: New mirtazapine 15 mg PO BEDTIME 90 days 90 tabs 0RF Discontinued dicyclomine Discontinued Reason: Patient Completed Course 20 mg PO TID 30 days 90 tabs 1RF R10.9 - Unspecified abdominal pain
== END 2024-08-14 08:20 | disposition home or self-care (01) ==
PROVIDERS: PCP Internal Medicine; Visit Provider Internal Medicine
DX: R10.9 Unspecified abdominal pain (principal); F32.1 Major depressive disorder, single episode, moderate; E03.9 Hypothyroidism, unspecified; G47.00 Insomnia, unspecified; Z23 Encounter for immunization

== ENCOUNTER → 2024-08-14 07:52 | Outpatient (BNVA) | payer OTHER, SELFPAY | PROVIDERS: PCP Internal Medicine; Visit Provider Internal Medicine | DX: Z23 Encounter for immunization (principal); R10.9 Unspecified abdominal pain; F32.1 Major depressive disorder, single episode, moderate; E03.9 Hypothyroidism, unspecified; G47.00 Insomnia, unspecified | CPT/HCPCS: 90471; 90656; 99212 ==

== ENCOUNTER 2024-09-03 07:45 | Outpatient (REF) | payer OTHER, SELFPAY ==
--- NOTE | ~2024-09-03 | US_ITS ---
EXAMINATION: US COMPLETE ABDOMEN WITH LIVER ELASTOGRAPHY CLINICAL INFORMATION: Unspecified abdominal pain. COMPARISON: 05/08/2019 abdominal ultrasound with elastography. TECHNIQUE: Real-time imaging of the abdominal viscera. Noninvasive ultrasound liver fibrosis assessment is performed using Siemens shear wave elastography (pSWE) with a C5-2 MHz transducer. Multiple elastography samples are obtained. (Previously DoubleBeamPQ pSWE was used, limiting comparisons). FINDINGS: PANCREAS: Normal. The visualized pancreatic head and body are normal in appearance. The remainder of the pancreas is obscured from visualization by the overlying bowel gas. ABDOMINAL AORTA: The proximal, middle, and distal aortic segments are normal in caliber. INFERIOR VENA CAVA: Visualized portions are normal. LIVER: Echogenic diffusely. The liver demonstrates normal size and contour. No focal lesion or intrahepatic biliary duct dilatation. -The right lobe measures 13.6 cm in length. The left lobe measures 6.6 cm in length. -Portal flow is hepatopedal. Shear wave liver elastography median stiffness is 0.91 m/s (reference: normal median stiffness is 1.3 m/s or less). IQR/median stiffness to assess sampling precision is 0.11 (reference: good quality data set is IQR/median stiffness of 0.15 or less). GALLBLADDER: There are numerous gravel-type gallstones within the lumen of the gallbladder. Gallbladder is distended likely from fasting state. No pericholecystic fluid or wall thickening. COMMON BILE DUCT: Normal in caliber measuring 0.4 cm in diameter. RIGHT KIDNEY: Appears rotated with normal cortical echogenicity and thickness. No hydronephrosis. No renal calculi. There is a markedly echogenic probable angiomyolipoma measuring 0.8 x 0.8 x 0.6 cm in the upper pole. The kidney measures 8.6 cm in maximum dimension. LEFT KIDNEY: Normal. No hydronephrosis. No renal calculi or focal parenchymal lesions. The kidney measures 12.6 cm in maximum dimension. SPLEEN: Normal. The spleen measures 15.2 cm in maximum dimension. FREE FLUID: None. US/US abdomen comp w elastography IMPRESSION: 1. Liver normal in size with steatosis. No focal lesions. 2. Cholelithiasis in a somewhat distended gallbladder, likely representing physiologic fasting state. No evidence of gallbladder inflammation sonographically. 3. 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 4. Stable asymmetric renal size, likely secondary to right renal rotation. 5. Splenomegaly. 6. Liver elastography: Measurements are consistent with a high probability of normal liver stiffness. Liver stiffness cannot be directly compared with the prior due to different technique and hardware. REFERENCE: Society of Radiologists in Ultrasound Liver Stiffness Thresholds (2020): LIVER STIFFNESS THRESHOLDS: *Liver Stiffness equal or less than 1.3 m/s: High probability of being normal. *Liver Stiffness less than 1.7 m/s: In the absence of other known clinical signs, rules out compensated advanced chronic liver disease. *Liver Stiffness 1.7-2.1 m/s: Suggestive of compensated advanced chronic liver disease but need further test for confirmation. *Liver Stiffness over 2.1 m/s: Rules in compensated advanced chronic liver disease. *Liver Stiffness over 2.4 m/s: Suggestive of clinically significant portal hypertension. QUALITY OF DATA SET: *IQR/Median value equal or less than 0.15 implies a quality data set. *IQR/Median value over 0.15 implies a poor quality data set. SIGNIFICANT CHANGE FROM PRIOR EXAM: Significant change if liver stiffness measurement is 10% or greater from prior exam. OTHER CONSIDERATIONS: The stage of liver fibrosis may be overestimated in the setting of acute hepatitis, liver inflammation, elevated liver function tests, hepatic vascular congestion, obstructive cholestasis, non-fasting state, and infiltrative diseases such as amyloidosis and lymphoma. In some patients with NAFLD, the liver stiffness thresholds for compensated advanced chronic liver disease may be lower. In causes other than viral hepatitis and NAFLD, liver stiffness thresholds are not well established. Electronically signed by: Gabino Young MD 09/21/2024 10:15 AM [facility]
== END 2024-09-03 07:46 | disposition home or self-care (01) ==
LOC: HO.US 07:45
PROVIDERS: PCP Internal Medicine; Visit Provider Internal Medicine
DX: R10.9 Unspecified abdominal pain (principal)
CPT/HCPCS: 76700; 76981

== ENCOUNTER → 2024-09-03 07:47 | Outpatient (BNV) | payer OTHER, SELFPAY | PROVIDERS: PCP Internal Medicine; Visit Provider Radiology Diagnostic Radiology | DX: R10.9 Unspecified abdominal pain (principal) | CPT/HCPCS: 76981 ==

== ENCOUNTER → 2024-09-12 19:48 | Outpatient (BNV) | payer OTHER, SELFPAY | PROVIDERS: PCP Internal Medicine; Visit Provider Radiology Diagnostic Radiology | DX: R41.3 Other amnesia (principal) | CPT/HCPCS: 70551 ==

== ENCOUNTER 2024-09-12 19:50 | Outpatient (REF) | payer OTHER, SELFPAY ==
--- NOTE | ~2024-09-12 | MR_ITS ---
EXAMINATION: MR BRAIN WITHOUT CONTRAST CLINICAL INFORMATION: Other amnesia COMPARISON: No priors. Correlated to CT dated June 06, 2017. TECHNIQUE: MRI of the brain was obtained using routine sequences without contrast. FINDINGS: Submitted for interpretation on September 19, 2024. No signal abnormality or volume loss in the hippocampi. No restricted diffusion. No acute intracranial hemorrhage, mass effect, midline shift, hydrocephalus or herniation. Soto-white matter differentiation is normal. Posterior cranial fossa contents demonstrated no signal abnormality or mass effect. Sellar/suprasellar region demonstrated no signal abnormality or masses. Craniocervical junction is intact and normal. Flow-void signal within the main cerebral vessels is normal. MR/MR head/brain wo con IMPRESSION: No acute or structural brain abnormality. Electronically signed by: Beck Marcano MD 09/19/2024 08:48 AM [facility]
== END 2024-09-12 19:51 | disposition home or self-care (01) ==
LOC: HO.MRI 19:50
PROVIDERS: PCP Internal Medicine; Visit Provider Nurse Practitioner Family
DX: R41.3 Other amnesia (principal); Z81.8 Family history of other mental and behavioral disorders
CPT/HCPCS: 70551

== ENCOUNTER → 2024-10-16 08:54 | Outpatient (BNV) | payer OTHER, SELFPAY | PROVIDERS: PCP Internal Medicine; Visit Provider Psychiatry & Neurology Neurology | DX: R06.83 Snoring (principal); G47.10 Hypersomnia, unspecified | CPT/HCPCS: 95806 ==

== ENCOUNTER → 2024-10-16 16:03 | Outpatient (REF) | payer OTHER, SELFPAY | LOC: HO.SL 16:03 | PROVIDERS: PCP Internal Medicine; Visit Provider Nurse Practitioner Family | DX: G47.33 Obstructive sleep apnea (adult) (pediatric) (principal); G47.19 Other hypersomnia; R06.83 Snoring | CPT/HCPCS: 95806 ==

== ENCOUNTER 2024-11-14 12:44 | Outpatient (RCR) | payer OTHER, SELFPAY ==
--- NOTE | 2024-12-28 10:58 | MHC.SP.ADU ---
Referring provider: Ale BETH Reason for Referral: Forgetfulness Type of Treatment: 64621 Standardized Cognitive Performance Testing, per hour Date of Plan of Treatment: 11/14/24 Onset of Symptoms/Illness: 11/14/23 Date Treatment Started: 11/14/24 Medical Diagnosis: R41.3 Other amnesia Primary Speech Language Diagnosis: R41.841 Cognitive communication disorder History Mckenna Zhao is a 49 year old female [facility] by Ale BETH of [facility] office in [place], [place] for a cognitive linguistic evaluation. She arrived on time for her appointment today, unaccompanied. Mckenna reports she has been increasingly forgetful over the course of the past year and notes history of Alzheimer?s dementia in both her grandmothers. Mckenna reports normal gestational and developmental history, though she mentions struggling in school with academics. Mckenna believes she may have undiagnosed dyslexia, as she struggles with reading and writing. Mckenna indicates she was in special education classes. Mckenna left school in the 9th grade due to these academic and also social struggles and earned her GED at age 19. Mckenna lives in a private residence and has a 12 year old child and a dog. 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 Mckenna and her family are from [place]. She is bilingual and speaks both Icelandic and Khmer. Mckenna was recently referred to Neurology and Sleep with concerns of memory issues. Mckenna reports she remembers bits and pieces from longer conversations, sometimes forgets what she was talking about while she is still speaking, forgets what she ate the day before, and sometimes forgets to complete time sheets for work. She says she ?has to write things down or think about it.? Mckenna also reports she cannot watch a long movie and ?needs to get up and do something else.? Mckenna was subsequently sent for this exam and was advised to undergo neuropsychological and psychiatric testing to assess indications of MCI, early symptoms of dementia or possible ADD/ADHD or undiagnosed learning disorder. Mckenna was also sent for a Brain MRI, which on 09/12/24 showed no acute or structural brain abnormality. Medical History: Other: Medical History Snores Hypothyroid Hypovitaminosis D Moderate major depression Memory loss Elevated TSH Shortness of breath Morbid obesity Constipation by delayed colonic transit GERD (gastroesophageal reflux disease) Insomnia Back pain Surgical History Hx of colonoscopy S/P lumpectomy, left breast History of esophagogastroduodenoscopy (EGD) History of release of tendon History of History of removal of laparoscopic gastric banding device H/O bilateral breast reduction surgery History of abdominoplasty Hx of laparoscopic gastric banding Tests of Cognition: RBANS Clinical Impression: Intact Observations: Mckenna?s cognitive linguistic skills were evaluated using the RBANS: The Repeatable Battery for the Assessment of Neuropsychological Status (RBANS-Updated Form B). The RBANS assesses aspects of cognitive memory, language, and attention skills. The RBANS is considered a screening battery for cognitive function used with adolescents and adults, ages 12 to 89 years. Composite domains assessed in this evaluation are: Immediate Memory, Visuospatial/Constructional, Language, Attention, and Delayed Memory. Assessed domains and their scores are summarized below: IMMEDIATE MEMORY: These subtests assess an individual?s ability to remember a small amount of information immediately after it is presented. Mckenna was presented with a list of 10 random words and was instructed to repeat back as many words as she could remember from the list (List Learning). She initially recalled 4 items from the list of 10. After 3 repetitions, she recalled up to 7 items on the list, suggesting that verbal repetition facilitates her recall. After listening to a spoken paragraph, Mckenna was instructed to re-tell the story with as much detail as she could remember (Story memory). She performed well on this task and was able to recall dates, locations, and other specific details. List Learning Total Score: 20 Scaled Score: 4 Interpretation: Borderline Story Memory Total Score: 17 Scaled Score: 11 Interpretation: Average Immediate Memory Index score: 85 Interpretation: Low Average VISUOSPATIAL/CONSTRUCTIONAL: These subtests assess an individual?s visuospatial skills and perception of spatial relationships. Mckenna was first instructed to draw an accurate copy of a figure presented to her (Figure Copy). Mckenna did well with this task and ryan an accurate copy of this figure, scoring in the ?high? average range. Next, Mckenna was instructed to identify lines that matched based on orientation and placement, which she was able to do in most trials. Figure Copy Total Score: 20 Scaled Score: 13 Interpretation: High Average Line Orientation Total Score: 14 Percentile Group: 17-25 Interpretation: Low Average Visuospatial/Constructional Index score: 100 Interpretation: Average LANGUAGE: These subtests assess an individual?s word retrieval skills. Mckenna correctly named line images in 9 out of 10 trials during a confrontational naming task (Picture Naming). No hesitancies or paraphasias were observed with confrontational naming and throughout conversational speech. She reports she is not familiar with tools, as she does not typically use them, and so she named ?pliers? as ?wrench.? She stated she was aware she was ?guessing.? Mckenna also named 14 relevant items in a given category in 60 seconds (Semantic Fluency) without errors, repetitions, or perseverations. Please note that these subtests were administered in Mckenna?s secondary language, Khmer. Picture Naming Total Score: 9 Percentile Group: 17-25 Interpretation: Low Average Semantic Fluency Total Score: 14 Scaled Score: 5 Interpretation: Borderline Language Index score: 85 Interpretation: Low Average ATTENTION: These subtests assess an individual?s capacity to remember and manipulate both visually and orally presented information in short-term memory storage. Mckenna was first instructed to repeat back number series that were between 2-9 digits long (Digit Span). She recalled up to 7 digits at a time. Mckenna was also instructed to code markings with numbers (Coding). She coded 38 markers, making just two errors in confusing similar figures which were inverted. Digit Span Total Score: 12 Scaled Score: 12 Interpretation: High Average Coding Total Score: 36 Scaled Score: 5 Interpretation: Borderline Attention Index score: 91 Interpretation: Average DELAYED MEMORY: These subtests assess an individual?s retrieval of information from long-term memory. Mckenna was able to recall 5 out of 10 unrelated words in a list after a short time delay (List Recall/List Recognition). She recognized almost all words from the list when asked yes/no questions (i.e. ?Was ?market? on the list??). She did recall 6 out of 12 details from a story as well and, impressively, redrew from memory an accurate copy of the figure presented to her at the beginning of the testing period (Figure Recall). Her overall performance on this subtest fell within the average range. List Recall Total Score: 5 Percentile Group: 17-25 Interpretation: Low Average List Recognition Total Score: 19 Percentile Group: 17-25 Interpretation: Low Average Story Recall Total Score: 6 Scaled Score: 5 Interpretation: Borderline Figure Recall Total Score: 19 Scaled Score: 14 Interpretation: Superior Delayed Memory Index Score: 100 Interpretation: Average Sum of Index Scores: 461 Total Scale: 88 Percentile: 21st Interpretation: Low Average Eric Sutton (1998). Repeatable Battery for the Assessment of Neuropsychological Status [Manual]. EvergreenFLACO: Renzo. Impressions and Recommendations Summary: Today Mckenna demonstrated average to low average performance on cognitive linguistic screening measures, which does not indicate further speech intervention at this time. Given her familial history of dementia in both grandmothers, she is recommended close monitoring and follow-up with Neurology. Mckenna reported experiencing forgetfulness and short attention span, concerning for learning and/or attention difficulties, as well as history of reading difficulty. She is recommended a consultation with Neuropsychology/Psychiatry for a comprehensive evaluation. Recommendation for Speech Therapy: NA:Typical Evaluation Recommended Referrals to be Discussed with Primary Care Provider: Neurology Neuropsychological Eval Patient Education: Completed: Yes Patient/Caregiver Education: Described Results of Evaluation Patient expressed understanding of evaluation Comments/Barriers to Learning: It was a pleasure meeting and working with Mckenna. Please do not hesitate to contact the [facility] with any questions related to the content of this report or if we can be of further assistance in her care. Rag Cutting Machine Feeder Clinican/Clinical Fellow: No Supervisory Statement: N/A Speech Language Pathologist: Ruthie Garnett M.A., CCC-DISTRICT AGENT
== END 2024-12-28 13:38 | disposition home or self-care (01) ==
LOC: HO.SH 12:44
PROVIDERS: PCP Internal Medicine; Visit Provider Nurse Practitioner Family
DX: R41.3 Other amnesia (principal)
CPT/HCPCS: 96125

== ENCOUNTER 2024-12-10 16:19 | Outpatient (AMB) | payer OTHER, SELFPAY ==
[2024-12-10 16:21] VITALS: BP 126/72; PULSE 76; O2SAT 99; BMI 31.1
--- NOTE | 2024-12-10 16:21 | A.OFFVIS_ITS ---
Vital Signs 12/10/24 16:21 Height 5 ft 5 in Weight 186 lb 15.232 oz BMI 31.1 BP 126/72 Blood Pressure Location Rt brachial Position Sitting Pulse 76 Pulse Source Pulse Oximeter Pulse Oximetry (%) 99 Oxygen Delivery Method Room Air Intake Visit Reasons: Abdominal pain/Yas pt Intake Note: ESTABLISHED PATIENT for diverticulosis mgmt. Prior JM pt. Chief Complaint; Epigastric pain, bloating + pressure, denies any additional GI concerns. Pt would like to discuss possibly getting dicyclomine again. Pt has taken it previously and believes it could be helpful. Pt had US done 1-2 mos ago for GI concerns. Machine Bobbin Winder Required: No Accompanied by: Son Allergies ketorolac Allergy (Severe, Verified 12/10/24 16:21) Stomach Upset oxycodone [From PERCOCET] Allergy (Intermediate, Verified 12/10/24 16:21) itchy HPI HPI Abdominal pain/Yas pt: Details: LAST VISIT WITH BART FAIRBANKS FEBRUARY 2023, PATHOLOGY REPORT FROM UPPER ENDOSCOPY AND COLONOSCOPY JANUARY 2023 Diagnosis A. Small bowel, biopsy: Small intestinal mucosa with mildly increased intraepithelial lymphocytes and preserved villous architecture. See comment. B. Stomach, antrum, biopsy: Antral-type mucosa with mild chronic inactive inflammation; no Helicobacter organisms seen. C. Colon, descending, polypectomies: - Hyperplastic mucosal polyp. - Colonic mucosa with prominent lymphoid aggregate. COMMENT: The findings in the small bowel are non-specific. The differential diagnosis is broad and includes celiac disease as well as infection (e.g. in this case viral), medication/drugs (e.g. NSAIDs), bacterial overgrowth, tropical sprue, immunodeficiency syndromes (e.g. IgA deficiency, CVID), autoimmune enteropathy, Crohns and collagen vascular disease, among others. Please correlate with clinical and other laboratory findings. TODAY'S VISIT: Patient is here today to reestablish care. Previously seen by Bart Fairbanks. Patient reports that she has been feeling very bloated and has epigastric pain no matter what she eats. Patient reports no dyspepsia, dysphagia or odynophagia. States that acid reflux is suppressed with omeprazole. Patient reports that she changed her diet and lost a little bit of weight. She continues to try to eat healthy. Ultrasound ordered by her provider and liver elastography showed normal liver stiffness, increased echogenicity most likely fatty liver. Gallbladder was distended with cholelithiasis, without cholecystitis. Patient reports that she has pain in upper abdomen every time she eats. Sometimes she eats just strawberries. Follow low FODMAP diet for some time. Reports that she is moving her bowels. Takes fiber as needed. Patient does admit that she does not feel like she empties her bowels completely though. Denies any melena, hematochezia, unintentional weight loss or ribbon like stools. Upper endoscopy showed mild chronic inactive inflammation in her stomach. Patient denies any diarrhea, no nausea or vomiting. [facility] Medical History Moderate major depression Snores Hypothyroid Hypovitaminosis D Memory loss Elevated TSH Shortness of breath Morbid obesity Constipation by delayed colonic transit GERD (gastroesophageal reflux disease) Insomnia Back pain Surgical History Hx of colonoscopy S/P lumpectomy, left breast History of esophagogastroduodenoscopy (EGD) History of release of tendon History of History of removal of laparoscopic gastric banding device H/O bilateral breast reduction surgery History of abdominoplasty Hx of laparoscopic gastric banding Family History Father HIV (human immunodeficiency virus infection) Mother Osteoporosis Hypertension Sister Crohn disease Fibromyalgia Maternal Grandmother CVD (cardiovascular disease) Stroke Maternal Grandfather Diabetes Prostate cancer Colon cancer Maternal Aunt History of breast cancer Maternal Aunt Endometrial cancer Maternal Uncle Pancreatic cancer Maternal Aunt Ovarian cancer Social History Housing: House Are you a primary critical care nurse specialist to a significant other at home: No Do you presently have visiting nurse or other home services: No Alcohol intake: current Alcohol intake frequency: holidays/special occasions only Alcohol type: beer and hard liquor Patient Tobacco Use Status: Former Tobacco user Tobacco use type: Cigarette e-Cigarette/Vaping Use: Never Used Second Hand Smoke Exposure: No service: No Current occupational status: employed 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/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: No Gender identity: Female Cognitive needs: No Hearing needs: No Vision needs: Yes Female Reproductive History Menstrual Age of Menarche: 13 Review of Systems Const Denies weight gain and Denies weight loss ENT Reports no additional complaints, Denies dysphagia and Denies odynophagia Card Reports no additional complaints Resp Reports no additional complaints GI Reports abdominal pain (epigstric), Denies belching, Denies melena, Reports bloating, Denies change in bowel habits, Reports constipation (Occasional), Denies dysphagia, Denies excessive flatus, Denies dyspepsia, Denies heartburn, Denies diarrhea, Denies loose stools, Denies nausea, Denies odynophagia and Denies vomiting Musc Reports no additional complaints Neuro Reports no additional complaints Psych Reports no additional complaints Endo Reports no additional complaints Physical Exam Const General: healthy appearing and no acute distress Orientation/consciousness: patient oriented x3 Resp Effort & Inspection: normal respiratory effort, able to speak in complete sentences, no tracheal deviation and symmetric chest movement Auscultation: clear to auscultation bilaterally Cardio Rate: regular rate GI Inspection: Yes normal to inspection, No distended and Yes obesity Palpation (GI): Soft to palpation, not firm, nontender and No hepatosplenomegaly present Auscultation: normal bowel sounds General: Yes no CVA tenderness Back/Spine/Pelvis Back: no CVA tenderness Skin General skin exam: elasticity normal, turgor normal and dry skin Neuro General: patient oriented x3 Psych Appearance: grossly normal Mental Status: mental status grossly normal Quality Reporting (2019) Adult ([facility] 138/12/29/68) Smoking risk assessment performed?: Yes Patient Tobacco Use Status: Former Tobacco user Assessment & Plan Assessment & Plan (1) Abdominal pain: Code(s): R10.9 - Unspecified abdominal pain Category: Medical Qualifiers: Abdominal location: generalized Qualified Code(s): R10.84 - Generalized abdominal pain (2) Diverticulosis: Code(s): K57.90 - Diverticulosis of intestine, part unspecified, without perforation or abscess without bleeding Category: Medical (3) Chronic constipation: Code(s): K59.09 - Other constipation Category: Medical (4) GERD (gastroesophageal reflux disease): Comment: Continue Lifestyle dietary modification PPI Code(s): K21.9 - Gastro-esophageal reflux disease without esophagitis Category: Medical Plan Patient will be sent for HIDA scan. Complains cramping and abdominal pain after every meal. Patient also reports bloating. Will check liver panel again, transglutaminase to rule out celiac and lipase to rule out chronic pancreatitis. Will check vitamin-D level, low in the past. Will recheck vitamin B12 and folate. Discussed with patient low FODMAP diet again. Patient does have a list at home that she will look over again. Patient will get Benefiber with pre and probiotics. I will send script for senna to help her empty her bowels better. Patient will follow-up in 10 weeks, sooner on as needed basis. She is agreeable to this plan and verbalizes understanding of instructions. She was given the opportunity to ask questions and all questions answered. Thank you for allowing me to participate in her care Orders: Orders Vitamin B12 and Folate Today R19.7 - Diarrhea, unspecified Liver Panel Today R74.01 - Elevation of levels of liver transaminase levels NM hepatobiliary w pharm Today R10.11 - Right upper quadrant pain Transglutaminase IgA Today R10.9 - Unspecified abdominal pain Lipase Today R10.9 - Unspecified abdominal pain TSH reflex Free T4 Today K59.00 - Constipation, unspecified Vitamin D 25-OH (D2 and D3) Today E55.9 - Vitamin D deficiency, unspecified Medications: New sennosides (Natural Senna Laxative) 17.2 mg (2 x 8.6 mg) PO BEDTIME 60 tabs 3RF constipation K59.00 - Constipation, unspecified Coding Level of Care Code Est Pt Level 4 (23379) Diagnoses Generalized abdominal pain R10.84 Abdominal location: generalized Diverticulosis K57.90 Chronic constipation K59.09 GERD (gastroesophageal reflux disease) K21.9 Time Spent (min) 40 Comment 25 minutes spent with patient and additional 15 minutes spent reviewing her records
== END 2024-12-10 16:46 | disposition home or self-care (01) ==
PROVIDERS: PCP Internal Medicine; Visit Provider Nurse Practitioner Family
DX: R10.84 Generalized abdominal pain (principal); K57.90 Diverticulosis of intestine, part unspecified, without perforation or abscess without bleeding; K59.09 Other constipation; K21.9 Gastro-esophageal reflux disease without esophagitis
CPT/HCPCS: 99214

== ENCOUNTER → 2024-12-10 16:19 | Outpatient (BNVA) | payer OTHER, SELFPAY | PROVIDERS: PCP Internal Medicine; Visit Provider Nurse Practitioner Family | DX: K21.9 Gastro-esophageal reflux disease without esophagitis (principal); K59.09 Other constipation; K57.90 Diverticulosis of intestine, part unspecified, without perforation or abscess without bleeding; R10.84 Generalized abdominal pain | CPT/HCPCS: 99212 ==

== ENCOUNTER 2024-12-29 09:52 | Outpatient (REF) | payer OTHER, SELFPAY ==
[2024-12-29 11:50] LABS: Alanine Aminotransferase 25 U/L (0-31); Alkaline Phosphatase 139 U/L (39-117); Aspartate Amino Transferase 20 U/L (5-31); Bilirubin Direct 0.3 mg/dL (0.0-0.5); Bilirubin Total 0.7 mg/dL (0.0-1.0); Lipase 12 U/L (8-78); Total Protein 7.2 g/dL (6.5-8.0)
[2024-12-29 12:17] LABS: Folate < 2.2 ng/mL (> or = 4.0); Vitamin B12 1019 pg/mL (200-900)
[2024-12-31 18:19] LABS: Transglutaminase IgA <1.0 U/mL
[2025-01-02 12:50] LABS: Vitamin D 25-OH, D2 <4 ng/mL; Vitamin D 25-OH, D3 19 ng/mL; Vitamin D 25-OH, Total 19 ng/mL (30-100)
== END 2024-12-29 09:53 | disposition home or self-care (01) ==
LOC: HO.LAB 09:52
PROVIDERS: PCP Internal Medicine; Visit Provider Nurse Practitioner Family
DX: R19.7 Diarrhea, unspecified (principal); R74.01 Elevation of levels of liver transaminase levels; R10.9 Unspecified abdominal pain; K59.00 Constipation, unspecified; E03.9 Hypothyroidism, unspecified; E55.9 Vitamin D deficiency, unspecified
CPT/HCPCS: 36415; 80076; 82306; 82607; 82746; 83690; 84443; 86364

== ENCOUNTER → 2025-01-04 07:51 | Outpatient (REF) | payer OTHER, SELFPAY ==
--- NOTE | ~2025-01-04 | NM_ITS ---
EXAMINATION: NM HEPATOBILIARY WITH PHARM HISTORY: R10.11 - Right upper quadrant pain. TECHNIQUE: An hepatobiliary scan was performed following the intravenous administration of 5 mCi technetium 99m-mebrofenin. The patient received 1.7 mcg CCK intravenously approximately 30 minutes after injection of the radiopharmaceutical. COMPARISON: Correlation is made with an abdominal ultrasound dated 09/03/2024. FINDINGS: There is normal uptake and excretion of the radiopharmaceutical by the liver. Common bile duct activity is noted at 9 minutes. Gallbladder activity is seen at 10 minutes, and small bowel activity is noted at 14 minutes. After the administration of intravenous CCK, the estimated gallbladder ejection fraction is 40%, which is within normal limits. NM/NM hepatobiliary w pharm IMPRESSION: Normal hepatobiliary scan with normal gallbladder ejection fraction. Electronically signed by: Josh Leonardo MD 01/04/2025 10:26 AM [facility] [place]
== END ==
LOC: HO.NUCMED 07:51
PROVIDERS: PCP Internal Medicine; Visit Provider Nurse Practitioner Family
DX: R10.11 Right upper quadrant pain (principal)
CPT/HCPCS: 78227; A9537; J2805

== ENCOUNTER → 2025-01-04 07:52 | Outpatient (BNV) | payer OTHER, SELFPAY | PROVIDERS: PCP Internal Medicine; Visit Provider Radiology Diagnostic Radiology | DX: R10.11 Right upper quadrant pain (principal) | CPT/HCPCS: 78227 ==

== ENCOUNTER 2025-02-07 08:50 | Outpatient (AMB) | payer OTHER, SELFPAY ==
--- NOTE | 2025-02-07 08:53 | A.OFFVIS_ITS ---
Vital Signs 02/07/25 08:55 Height 5 ft 5 in Weight 189 lb 2 oz BMI 31.5 BP 112/78 Blood Pressure Location Rt brachial Position Sitting Intake Visit Reasons: Follow up Intake Note: Patient presents follow up Memory/GABBIE. HST/Labs/MRI/Speech Eval in chart. Waitlist at [facility] for Neuropsych. Allergies ketorolac Allergy (Severe, Verified 02/18/25 16:11) Stomach Upset oxycodone [From PERCOCET] Allergy (Intermediate, Verified 02/18/25 16:11) itchy Medication List - Last Reconciled 02/07/25 by Ale Damico, KIRIT acetaminophen 500 mg PO Q6H PRN 30 days cholecalciferol (vitamin D3) 125 mcg PO DAILY cyclobenzaprine 10 mg PO BEDTIME PRN 90 days escitalopram oxalate (Lexapro) 5 mg PO DAILY 30 days folic acid 1 mg PO DAILY levonorgestrel (Mirena) intrauterine levothyroxine 25 mcg PO DAILY 90 days omeprazole 20 mg PO DAILY 90 days sennosides (Natural Senna Laxative) 17.2 mg (2 x 8.6 mg) PO BEDTIME simethicone (Gas Relief Extra Strength) 125 mg PO TID-QID PRN zolpidem 10 mg PO BEDTIME PRN 30 days HPI Comments Details: History of Present Illness Right-handed patient is a 50-year-old female presenting with memory loss. Brain MRI results were normal. She reports auditory perception of her heartbeat in her left ear. There is light sensitivity resulting in frequent headaches. Medication for depression has been inconsistent, impacting her mood stability. The patient has a history of vitamin D deficiency and potential sleep apnea with inconclusive past studies. Varicose veins are present with familial history. Review of Systems - Neurological: Reports memory loss, light sensitivity, headaches, hearing heartbeat in the left ear. - Psychiatric: Reports depression with mood fluctuations. - Musculoskeletal: Denies recent trauma or injury. - ENT: Reports experiencing light sensitivity and hearing heartbeat in left ear. - Vascular: Reports varicose veins. Results - Tests and Diagnostics: 09/12/2024, Brain MRI - Normal 10/16/2024, HST was inconclusive with AHI 1.2 per hour and O2 rommel 83%. 07/31/2024 Initial HPI: Pt reports she started having memory issues about 1 yr ago, which have slolwy progressing. Pt reports she that she is forgetting parts of conversations from the day prior. She may forget what she was talking about while she is speaking. She may forget where she puts things, such as her phone. She may forget what time she is supposed to do something- needs to call and confirm. She may forget how the directions on how to get somewhere. She is prone to leave the stove on. She recently cooked rice and beans, but forgot to add the beans. She may forget to submit her time sheets on time- the [employer] she works for often has to call her to remind her. She notes that she needs to write everything done and is better if she does something right away. Some days are better than others. Generally her mood is good. Generally active, busy, enjoys doing projects. She is prone to thinking of her to do lists when trying to fall asleep or when she wakes up. She uses Zolpidem qhs to help her shut her mind down, which helps her to fall asleep but not fall back asleep if she wakes up. She has a h/o GABBIE, but lost weight and stopped snoring so stopped using CPAP. Did struggle using CPAP as she was not taking Zolpidem at that time. She does get nocturnal leg cramps- uses Mag which helps some. Denies restless sleep. Can doze off if inactive. She has always been active and wanting to go to do something. She is prone to procrastinating- states this is a newer symptom, but then notes that she now pays her excise tax/registration fees as soon as she gets it because many times she has had to pay excessive late fees and drove her car w/ lapsed registration x's 6 months. Uses a list to make sure she pays all her bills to make sure she pays them all. She states he cannot watch a long movie, she has to get up and do something else . Does also have some restless leg symptoms. She recently noticed that she was feeling depressed a few months ago, was noticing decreased energy, decreased motivation. She states through self-talk an d checking in within herself, she was able to break this cycle. Pt normal gestational and early development. Pt reports she struggled in school academically- thinks she may have undiagnosed dyslexia, struggles w/ reading and writing. She left school in 9th grade d/t academic and social struggles. She earned her GED at age 19 yo. 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 PMH included- hypothyroidism- currently euthyroid. She is concerned as she has family h/o dementia: Paternal grandmother onset at age 55-60, and great aunts- unsure of age at onset. Mother is already showing signs of forgetfulness- but pt states her test for dementia was ok. Maternal grandmother- onset of dementia at age 70. Denies family h/o ADD/ADHD. Patient and family are from [place]. [facility] Medical History Moderate major depression Snores Hypothyroid Hypovitaminosis D Memory loss Elevated TSH Shortness of breath Morbid obesity Constipation by delayed colonic transit GERD (gastroesophageal reflux disease) Insomnia Back pain Surgical History Hx of colonoscopy S/P lumpectomy, left breast History of esophagogastroduodenoscopy (EGD) History of release of tendon History of History of removal of laparoscopic gastric banding device H/O bilateral breast reduction surgery History of abdominoplasty Hx of laparoscopic gastric banding Family History Father HIV (human immunodeficiency virus infection) Mother Osteoporosis Hypertension Sister Crohn disease Fibromyalgia Maternal Grandmother CVD (cardiovascular disease) Stroke Maternal Grandfather Diabetes Prostate cancer Colon cancer Maternal Aunt History of breast cancer Maternal Aunt Endometrial cancer Maternal Uncle Pancreatic cancer Maternal Aunt Ovarian cancer Social History Housing: House Are you a primary healthcare financial analyst to a significant other at home: No Do you presently have visiting nurse or other home services: No Alcohol intake: current Alcohol intake frequency: holidays/special occasions only Alcohol type: beer and hard liquor Patient Tobacco Use Status: Former Tobacco user Tobacco use type: Cigarette e-Cigarette/Vaping Use: Never Used Second Hand Smoke Exposure: No service: No Current occupational status: employed 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/hazards: No Gender identity: Female Cognitive needs: No Hearing needs: No Vision needs: Yes Female Reproductive History Menstrual Age of Menarche: 13 Physical Exam Vital Signs: Last Vital Signs BP 112/78 02/07/25 08:55 BMI result Body Mass Index 31.5 Const General: cooperative and no acute distress Orientation/consciousness: patient oriented x3 Resp Effort & Inspection: normal respiratory effort and able to speak in complete sentences Neuro General: patient oriented x3 and CN's II-XI intact bilaterally Gait exam (Neuro): Normal gait present Motor exam (neuro): 5/5 motor strength present throughout Psych Appearance: grossly normal Mental Status: mental status grossly normal Speech and movement: Normal speech and movement present Affect: normal affect Attitude: cooperative Thought process: Normal thought process present Thought content: Normal thought content present Insight: Good insight present (Psych) Assessment & Plan Assessment & Plan (1) Obesity (BMI 30.0-34.9): Code(s): E66.811 - Obesity, class 1 Category: Medical (2) Pulsatile tinnitus: Code(s): H93.A9 - Pulsatile tinnitus, unspecified ear Category: Medical (3) Memory loss: Code(s): R41.3 - Other amnesia Category: Medical (4) Insomnia: Code(s): G47.00 - Insomnia, unspecified Category: Medical Qualifiers: Insomnia type: unspecified Qualified Code(s): G47.00 - Insomnia, unspecified (5) Muscle cramps: Code(s): R25.2 - Cramp and spasm Category: Medical (6) Anemia: Code(s): D64.9 - Anemia, unspecified Category: Medical (7) Family history of dementia: Code(s): Z81.8 - Family history of other mental and behavioral disorders Category: Medical (8) Obstructive sleep apnea: Code(s): G47.33 - Obstructive sleep apnea (adult) (pediatric) Category: Medical (9) Excessive daytime sleepiness: Code(s): G47.19 - Other hypersomnia Category: Medical (10) Family history of dementia: Code(s): Z81.8 - Family history of other mental and behavioral disorders Category: Medical Plan Discussion Notes During the visit, we discussed managing the patient's memory loss. Patient had speech therapy evaluation, however they did not feel that therapy was indicated. Also discussed potential tinnitus characterized by hearing a heartbeat, and light sensitivity. I advised on increasing the Lexapro dosage to potentially stabilize mood and discussed its potential side effects such as dry mouth and constipation. We reviewed the possibility of ordering an in-lab PSG sleep study to better assess for sleep apnea/PLMS. Also discussed ordering an ultrasound of the carotid arteries for further evaluation of the heartbeat sound in her ear. The patient expressed understanding and agreed to proceed with the recommended tests and medication adjustments. We discussed nutritional adjustments for vitamin D replenishment and the importance of consistent medication intake. Patient Instructions and Plan Increase Lexapro to 10 mg daily, monitor for side effects. Continue vitamin D supplements. Schedule carotid ultrasound. Consider repeat sleep study for apnea. Manage light sensitivity with shading. Recommend compression stockings for varicose veins. Stress importance of medication adherence. Patient was informed and verbally consented to the use of an ambient scribe for clinic note documentation during this visit. - You advised to undergo the following testing: * Lab workup for common underlying etiologies * Carotid ultrasound * In-lab PSG sleep study to better assess for sleep apnea and periodic limb movements of sleep * Neuropsych testing as previously ordered. * Upon review of above, we will consider genetic testing for AD. - Increase your Lexapro dose to 10 mg daily. - Be consistent with your medication to help stabilize your mood. - Keep taking your vitamin D supplements as prescribed. - Protect your eyes from bright light by using shades or dim lighting. - Wear compression stockings to help with varicose veins during long periods of standing or sitting. - Follow up on any new symptoms or concerns with your healthcare provider. - Adopt lifestyle changes to support cardiovascular and metabolic health Will follow-up upon review of above and patient to follow-up in clinic in 6 months or sooner prn. Orders: Orders Complete Blood Count Auto Diff 02/07/25 D64.9 - Anemia, unspecified, R41.3 - Other amnesia, R25.2 - Cramp and spasm, R53.83 - Other fatigue Vitamin B6 02/07/25 D64.9 - Anemia, unspecified, R41.3 - Other amnesia, R25.2 - Cramp and spasm, R53.83 - Other fatigue Vitamin B1 02/07/25 D64.9 - Anemia, unspecified, R41.3 - Other amnesia, R25.2 - Cramp and spasm, R53.83 - Other fatigue IRON PROFILE 02/07/25 D64.9 - Anemia, unspecified, R41.3 - Other amnesia, R25.2 - Cramp and spasm, R53.83 - Other fatigue RT PSG in-lab sleep titration 02/07/25 R06.83 - Snoring, G47.19 - Other hypersomnia, G47.33 - Obstructive sleep apnea (adult) (pediatric) Comprehensive Met. Panel 02/07/25 D64.9 - Anemia, unspecified, R41.3 - Other amnesia, R25.2 - Cramp and spasm, R53.83 - Other fatigue Ferritin 02/07/25 D64.9 - Anemia, unspecified, R41.3 - Other amnesia, R25.2 - Cramp and spasm, R53.83 - Other fatigue CRP High Sensitivity 02/07/25 E66.811 - Obesity, class 1, H93.A9 - Pulsatile tinnitus, unspecified ear Erythrocyte Sedimentation Rate 02/07/25 E66.811 - Obesity, class 1, H93.A9 - Pulsatile tinnitus, unspecified ear Lipid Panel with Reflex 02/07/25 E66.811 - Obesity, class 1, H93.A9 - Pulsatile tinnitus, unspecified ear US carotid duplex BI 02/07/25 H93.A9 - Pulsatile tinnitus, unspecified ear, E66.811 - Obesity, class 1 Medications: New escitalopram oxalate (Lexapro) 10 mg PO DAILY 30 tabs 6RF 30 days Discontinued escitalopram oxalate Discontinued Reason: Doctor's Order 5 mg PO DAILY 30 days 30 tabs 3RF Coding Level of Care Code Est Pt Level 4 (23834) Diagnoses Obesity (BMI 30.0-34.9) E66.811 Pulsatile tinnitus H93.A9 Memory loss R41.3 Insomnia, unspecified type G47.00 Insomnia type: unspecified Muscle cramps R25.2 Anemia D64.9 Family history of dementia Z81.8 Obstructive sleep apnea G47.33 Excessive daytime sleepiness G47.19
[2025-02-07 08:55] VITALS: BP 112/78; BMI 31.5
== END 2025-02-07 09:41 | disposition home or self-care (01) ==
LOC: HO.HSMS 08:50
PROVIDERS: PCP Internal Medicine; Visit Provider Nurse Practitioner Family
DX: E66.811 Obesity, class 1 (principal); H93.A9 Pulsatile tinnitus, unspecified ear; R41.3 Other amnesia; G47.00 Insomnia, unspecified; R25.2 Cramp and spasm; D64.9 Anemia, unspecified; Z81.8 Family history of other mental and behavioral disorders; G47.33 Obstructive sleep apnea (adult) (pediatric); G47.19 Other hypersomnia
CPT/HCPCS: 99214

== ENCOUNTER 2025-02-07 08:50 | Outpatient (REF) | payer OTHER, SELFPAY ==
[2025-02-07 17:41] LABS: MANUAL DIFF FLAG NO
[2025-02-07 18:05] LABS: Alanine Aminotransferase 22 U/L (0-31); Albumin Level 4.3 g/dL (3.5-5.0); Alkaline Phosphatase 137 U/L (39-117); Anion Gap 10 (12-20); Aspartate Amino Transferase 25 U/L (5-31); Bilirubin Total 0.6 mg/dL (0.0-1.0); Blood Urea Nitrogen 12 mg/dL (9-16); Calcium 9.1 mg/dL (8.4-10.2); Carbon Dioxide 29 mmol/L (22-29); Chloride 105 mmol/L (96-108); Cholesterol 111 mg/dL (<200); Estimated Glomerular Filt Rate > 60; Glucose Random 87 mg/dL (60-115); HDL Cholesterol 46 mg/dL (>40); Iron 89 mcg/dL (30-160); LDL Cholesterol Calculated 58 mg/dL (<100); Percent Iron Saturation 30 % (15-50); Potassium 4.3 mmol/L (3.3-5.1); Sodium 140 mmol/L (135-145); Total Iron Binding Capacity 297 mcg/dL (228-428); Triglycerides 36 mg/dL (<150); Unsaturated Iron Binding 208 ug/dL
[2025-02-07 18:18] LABS: Basophils Percent Auto 1.2 % (0-2); Eosinophils Absolute Auto 0.1 X10*3/uL (0.0-0.4); Eosinophils Percent Auto 2.4 % (0-4); Hematocrit 41.2 % (37.0-47.0); Hemoglobin 13.3 g/dl (12.0-16.0); Imm Gran Abs Auto 0.01 X10*3/uL (0.00-0.03); Imm Gran Pct Auto 0.3 % (0.0-0.4); Lymphocytes Absolute Auto 1.1 X10*3/uL (1.2-4.9); Lymphocytes Percent Auto 31.3 % (20-40); Mean Corpuscular HGB Conc 32.3 g/dl (31.0-35.0); Mean Corpuscular Hemoglobin 26.8 pg (27.0-33.0); Mean Corpuscular Volume 82.9 fL (80.0-98.0); Mean Platelet Volume 11.3 fL (9.4-12.3); Monocytes Absolute Auto 0.3 X10*3/uL (0.1-1.2); Neutrophils Absolute Auto 1.9 x10*3/uL (2.0-8.3); Neutrophils Percent Auto 55.8 % (45-73); Platelet Count 186 X10*3/uL (160-400); Red Blood Count 4.97 X10*6/uL (4.20-5.50); Red Cell Distribution Width 13.2 % (11.0-16.0); White Blood Count 3.4 X10*3/uL (4.8-10.8)
[2025-02-07 18:21] LABS: Ferritin 28 ng/mL (10-250)
[2025-02-07 18:38] LABS: Erythrocyte Sedimentation Rate 7 MM/HR (0-20)
[2025-02-07 18:54] LABS: Reflex LDLD? No
[2025-02-12 14:08] LABS: Vitamin B6 9.5 ng/mL (2.1-21.7)
[2025-02-15 16:54] LABS: Vitamin B1 10 nmol/L (8-30)
== END 2025-02-07 08:51 | disposition home or self-care (01) ==
LOC: HO.HKASLDS 08:50
PROVIDERS: PCP Internal Medicine; Visit Provider Nurse Practitioner Family
DX: D64.9 Anemia, unspecified (principal); R41.3 Other amnesia; R25.2 Cramp and spasm; R53.83 Other fatigue; E66.811 Obesity, class 1; H93.A9 Pulsatile tinnitus, unspecified ear
CPT/HCPCS: 36415; 80053; 80061; 82728; 83540; 84207; 84425; 85025; 85652; 86141; 99212

== ENCOUNTER 2025-02-14 07:44 | Outpatient (AMB) | payer OTHER, SELFPAY ==
--- NOTE | 2025-02-14 07:45 | A.OFFPC_ITS ---
Intake Visit Reasons: MED Management Roseannmery [phone] Luggage Maker Required: No Accompanied by: Self / Same As Patient Allergies ketorolac Allergy (Severe, Verified 02/14/25 08:02) Stomach Upset oxycodone [From PERCOCET] Allergy (Intermediate, Verified 02/14/25 08:02) itchy Medication List - Last Reconciled 02/14/25 by Kusum Ribeiro MD acetaminophen 500 mg PO Q6H PRN 30 days cholecalciferol (vitamin D3) 125 mcg PO DAILY cyclobenzaprine 10 mg PO BEDTIME PRN 90 days dicyclomine 20 mg PO TID 30 days escitalopram oxalate (Lexapro) 10 mg PO DAILY 30 days folic acid 1 mg PO DAILY levonorgestrel (Mirena) intrauterine levothyroxine 25 mcg PO DAILY 90 days omeprazole 20 mg PO DAILY 90 days sennosides (Natural Senna Laxative) 17.2 mg (2 x 8.6 mg) PO BEDTIME simethicone (Gas Relief Extra Strength) 125 mg PO TID-QID PRN zolpidem 10 mg PO BEDTIME PRN 30 days Tobacco use date assessed: 02/14/25 Dental Screening Dental Screen Date: 02/14/25 Did you have a dental visit in the last 12 months?: Yes Did you have a dental problem in the last 6 months where you did not have access to dental care?: No Was dental information given to patient?: Patient has dentist HPI HPI Comments History of Present Illness Details This is a 50-year-old female with GERD, chronic constipation, insomnia, moderate major depression, hypothyroidism and low vitamin-D that has tele health visit by video today for follow-up on her conditions. GERD stable with PPIs. She still have abdominal gas pain and spasm and I will start her on dicyclomine. Constipation stable with senna. Insomnia stable with zolpidem as needed. On escitalopram for her depression which is working well. Last TSH was normal. On vitamin-D supplements for her low vitamin-D. She does have leukopenia and this will be monitor. No chest pain or shortness on breath. [facility] Medical History Moderate major depression Snores Hypothyroid Hypovitaminosis D Memory loss Elevated TSH Shortness of breath Morbid obesity Constipation by delayed colonic transit GERD (gastroesophageal reflux disease) Insomnia Back pain Surgical History Hx of colonoscopy S/P lumpectomy, left breast History of esophagogastroduodenoscopy (EGD) History of release of tendon History of History of removal of laparoscopic gastric banding device H/O bilateral breast reduction surgery History of abdominoplasty Hx of laparoscopic gastric banding Family History Father HIV (human immunodeficiency virus infection) Mother Osteoporosis Hypertension Sister Crohn disease Fibromyalgia Maternal Grandmother CVD (cardiovascular disease) Stroke Maternal Grandfather Diabetes Prostate cancer Colon cancer Maternal Aunt History of breast cancer Maternal Aunt Endometrial cancer Maternal Uncle Pancreatic cancer Maternal Aunt Ovarian cancer Social History Housing: House Are you a primary assisted living care manager to a significant other at home: No Do you presently have visiting nurse or other home services: No Alcohol intake: current Alcohol intake frequency: holidays/special occasions only Alcohol type: beer and hard liquor Patient Tobacco Use Status: Former Tobacco user Tobacco use type: Cigarette e-Cigarette/Vaping Use: Never Used Second Hand Smoke Exposure: No service: No Current occupational status: employed 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 1. Little interest or pleasure in doing things: several days 2. Feeling down, depressed, or hopeless: several days 3. Trouble falling or staying asleep, or sleeping too much: several days 4. Feeling tired or having little energy: several days 5. Poor appetite or overeating: not at all 6. Feeling bad about yourself - or that you are a failure or have let yourself or your family down: not at all 7. Trouble concentrating on things, such as reading the newspaper or watching television: not at all 8. Moving or speaking so slowly that other people could have noticed. Or the opposite - being so fidgety or restless that you have been moving around a lot more than usual: not at all 9. Thoughts that you would be better off or of hurting yourself in some way: not at all Total score: 4 Depression Screening Interpretation: Positive Depression Screening Follow-up: Existing condition, In treatment and Follow-up Visit Requested Depression Screening Done: Yes 33168 - PHQ-9 Billing: Yes Source: Developed by Drs. Josh Keita, Shani Haro, Rocky Sotelo and colleagues, with an educational monica from [employer]. Thrive Questionnaire Date Thrive assessed: 02/14/25 I am a: Patient What is your living situation today?: I have a steady place to live Within the past 12 months, did the food you bought not last and you didn't have the money to get more?: Never true Within the past 12 months, did you worry whether your food would run out before you got money to buy more?: Never true Do you have trouble paying for medicines?: No Do you have trouble getting transportation to medical appointments?: No Do you have trouble paying your heating and electricity bill?: No Do you have trouble taking care of your child, family member or friend?: No Do you have trouble with day-to-day activities such as bathing, preparing meals, shopping, managing finances, etc.?: No Are you currently unemployed and looking for a job?: No Are you interested in more education?: No Please select the resources that you would like help with: None Currently or been in a relationship where the following occur: No concerns reported THRIVE Score: 0 AUDIT C Alcohol Use Questionnaire (AUDIT-C) 1. How often do you have a drink containing alcohol?: Monthly or less 2. How many drinks containing alcohol do you have on a typical day when you are drinking?: 1 or 2 3. How often do you have six or more drinks on one occasion?: Never Total Score: 1 Score Reviewed/Action Taken: No RICHMOND-7 AMB Questionnaire RICHMOND-7 Date RICHMOND - 7 assessed: 02/14/25 Feeling nervous, anxious, or on edge: 1 = Several days Not being able to stop or control worryin = Not at all Worrying too much about different things: 1 = Several days Trouble relaxin = Several days Being so restless that it is hard to sit still: 0 = Not at all Becoming easily annoyed or irritable: 1 = Several days Feeling afraid as if something awful might happen: 0 = Not at all Total RICHMOND-7 score (0-4 normal; 5-9 mild; 10-14 moderate; 15-21 severe): 4 Source: Developed by Drs. Josh Keita, Shani Haro, Rocky Sotelo and colleagues, with an educational monica from Dr[employer]. RICHMOND-7 Assessment Billing RICHMOND-7 Assessment Tool: RICHMOND-7 Assessment 28527 Review of Systems Const All systems reviewed & are unremarkable except as noted in HPI and below Card Denies chest pain at rest, Denies chest pain with activity, Denies edema, Denies irregular heart rhythm, Denies claudication, Denies dyspnea, Denies dyspnea on exertion, Denies orthopnea, Denies paroxysmal nocturnal dyspnea and Denies slow heart rate Resp Denies cough, Denies dyspnea and Denies dyspnea on exertion Physical exam (Primary Care) Tobacco/Smoking Status: Tobacco use Status Tobacco use date assessed 02/14/25 02/14/25 07:50 Patient Tobacco Use Status Former Tobacco user 02/14/25 07:50 Tobacco use type Cigarette 02/14/25 07:50 e-Cigarette/Vaping Use Never Used 02/14/25 07:50 PHQ-9: PHQ-9 Score PHQ-9: Total score 4 02/14/25 08:04 Depression Screening Interpretation: Positive Depression Screening Follow-up: Existing condition, In treatment and Follow-up Visit Requested Thrive Assessment: Date of Thrive Assessment Date Thrive assessed 02/14/25 02/14/25 07:50 Currently or been in a relationship where the following occur: No concerns reported [facility] Head: Yes normal to inspection, Yes normocephalic and Yes atraumatic Eyes General: appearance normal, both eyes and all related structures Eyelids: Yes eyelids normal Conjunctivae: conjunctivae normal Telehealth Telehealth Telehealth Platform: Telephone Location of provider rendering services: practice address Location of patient: address on file Patient Identification confirmed using: Name, : Yes Telehealth method: video Patient verbally consented to treatment: Yes Patient verbally consented to billing insurance company: Yes Patient informed of any privacy concerns related to visit: Yes Minutes spent on Phone/Video with Pt.: 16 Coding Level of Care Code Tele Est Pt Level 4 (64686) Complex EM visit Add On G2211 Diagnoses Moderate major depression F32.1 Hypothyroidism E03.9 Chronic constipation K59.09 Hypovitaminosis D E55.9 GERD (gastroesophageal reflux disease) K21.9 Insomnia, unspecified type G47.00 Insomnia type: unspecified Additional Codes RICHMOND-7 Assessment Billing - RICHMOND-7 Assessment Tool: RICHMOND-7 Assessment 70536 ([id number]) PHQ-9 - 89415 - PHQ-9 Billing: Yes ([id number]) Time Spent (min) 16 Assessment & Plan Assessment & Plan (1) Moderate major depression: Code(s): F32.1 - Major depressive disorder, single episode, moderate Category: Medical (2) Hypothyroidism: Code(s): E03.9 - Hypothyroidism, unspecified Category: Medical (3) Chronic constipation: Code(s): K59.09 - Other constipation Category: Medical (4) Hypovitaminosis D: Code(s): E55.9 - Vitamin D deficiency, unspecified Category: Medical (5) GERD (gastroesophageal reflux disease): Comment: Continue Lifestyle dietary modification PPI Code(s): K21.9 - Gastro-esophageal reflux disease without esophagitis Category: Medical (6) Insomnia: Code(s): G47.00 - Insomnia, unspecified Category: Medical Qualifiers: Insomnia type: unspecified Qualified Code(s): G47.00 - Insomnia, unspecified Plan Continue escitalopram for depression. Continue levothyroxine for hypothyroidism. Repeat TSH for next office visit. Continue zolpidem as needed for insomnia. Continue PPIs for GERD and restart dicyclomine. Continue senna as needed for constipation. Monitor white blood cells. Medications: New zolpidem 10 mg PO BEDTIME PRN 30 tabs 0RF sleep 30 days dicyclomine 20 mg PO TID 90 tabs 3RF 30 days Discontinued zolpidem Discontinued Reason: Patient Completed Course 10 mg PO BEDTIME 30 days PRN 30 tabs 0RF insomnia
== END 2025-02-14 11:25 | disposition home or self-care (01) ==
LOC: HO.HMCH 07:44
PROVIDERS: PCP Internal Medicine; Visit Provider Internal Medicine
DX: F32.1 Major depressive disorder, single episode, moderate (principal); E03.9 Hypothyroidism, unspecified; K59.09 Other constipation; E55.9 Vitamin D deficiency, unspecified; K21.9 Gastro-esophageal reflux disease without esophagitis; G47.00 Insomnia, unspecified

== ENCOUNTER → 2025-02-14 07:44 | Outpatient (BNVA) | payer OTHER, SELFPAY | PROVIDERS: PCP Internal Medicine; Visit Provider Internal Medicine | DX: K21.9 Gastro-esophageal reflux disease without esophagitis (principal); K59.09 Other constipation; E03.9 Hypothyroidism, unspecified; E55.9 Vitamin D deficiency, unspecified; F32.1 Major depressive disorder, single episode, moderate; G47.00 Insomnia, unspecified | CPT/HCPCS: 96127 ==

== ENCOUNTER 2025-02-18 15:54 | Outpatient (AMB) | payer OTHER, SELFPAY ==
--- NOTE | 2025-02-18 16:11 | A.OFFVIS_ITS ---
Vital Signs 02/18/25 16:17 Height 5 ft 5 in Weight 186 lb 15.232 oz BMI 31.1 BP 126/68 Blood Pressure Location Rt brachial Position Sitting Pulse 62 Pulse Source Pulse Oximeter Pulse Oximetry (%) 99 Oxygen Delivery Method Room Air Intake Visit Reasons: 10 wks Intake Note: ESTABLISHED PATIENT for diverticulosis and chronic abd pain mgmt. Labs and imaging done. Chief Complaint; Pt reports that their GI sx have been fairly well controlled as of the last week or two. Pt recently started dicyclomine per PCP with positive impact. Pt does have questions about senna and whether or not she should continue use or not based on its effectiveness or lack thereof. Pt also reports R flank pain onset within the last 4-5 days. Pain seems worse w ith activity. No additional concerns reported at this time. Supervisor Coil Winding Required: No Accompanied by: Self / Same As Patient Allergies ketorolac Allergy (Severe, Verified 02/18/25 16:11) Stomach Upset oxycodone [From PERCOCET] Allergy (Intermediate, Verified 02/18/25 16:11) itchy HPI HPI 10 wks: Details: LAST VISIT Abdominal pain Diverticulosis Chronic constipation GERD (gastroesophageal reflux disease) Plan Patient will be sent for HIDA scan. Complains cramping and abdominal pain after every meal. Patient also reports bloating. Will check liver panel again, transglutaminase to rule out celiac and lipase to rule out chronic pancreatitis. Will check vitamin-D level, low in the past. Will recheck vitamin B12 and folate. Discussed with patient low FODMAP diet again. Patient does have a list at home that she will look over again. Patient will get Benefiber with pre and probiotics. I will send script for senna to help her empty her bowels better. Patient will follow-up in 10 weeks, sooner on as needed basis. She is agreeable to this plan and verbalizes understanding of instructions. She was given the opportunity to ask questions and all questions answered. ? Thank you for allowing me to participate in her care Orders Orders Vitamin B12 and Folate Today R19.7 Liver Panel Today R74.01 NM hepatobiliary w pharm Today R10.11 Transglutaminase IgA Today R10.9 Lipase Today R10.9 TSH reflex Free T4 Today K59.00 Vitamin D 25-OH (D2 and D3) Today E55.9 Medications New sennosides (Natural Senna Laxative) 17.2 mg (2 x 8.6 mg) PO BEDTIME 60 tabs 3RF constipation K59.00 HER TODAY'S VISIT Patient is here today for follow-up and to discuss labs and HIDA scan results. Patient reports that she has been feeling fairly well. Lab results and HIDA scan results discussed with patient. Patient had no abnormal labs except for mildly elevated alk phosphate. HIDA scan showed normal gallbladder activity. Patient reports occasional abdominal cramping, however since she was put on dicyclomine her symptoms are better. No cramping, however patient states that [employer] is no longer working. She is constipated in no BM some this for 2-3 days. Patient denies melena, hematochezia. Denies any dyspepsia, dysphagia or odynophagia [facility] Medical History Moderate major depression Snores Hypothyroid Hypovitaminosis D Memory loss Elevated TSH Shortness of breath Morbid obesity Constipation by delayed colonic transit GERD (gastroesophageal reflux disease) Insomnia Back pain Surgical History Hx of colonoscopy S/P lumpectomy, left breast History of esophagogastroduodenoscopy (EGD) History of release of tendon History of History of removal of laparoscopic gastric banding device H/O bilateral breast reduction surgery History of abdominoplasty Hx of laparoscopic gastric banding Family History Father HIV (human immunodeficiency virus infection) Mother Osteoporosis Hypertension Sister Crohn disease Fibromyalgia Maternal Grandmother CVD (cardiovascular disease) Stroke Maternal Grandfather Diabetes Prostate cancer Colon cancer Maternal Aunt History of breast cancer Maternal Aunt Endometrial cancer Maternal Uncle Pancreatic cancer Maternal Aunt Ovarian cancer Social History Housing: House Are you a primary spiritual care coordinator to a significant other at home: No Do you presently have visiting nurse or other home services: No Alcohol intake: current Alcohol intake frequency: holidays/special occasions only Alcohol type: beer and hard liquor Patient Tobacco Use Status: Former Tobacco user Tobacco use type: Cigarette e-Cigarette/Vaping Use: Never Used Second Hand Smoke Exposure: No service: No Current occupational status: employed 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/hazards: No Gender identity: Female Cognitive needs: No Hearing needs: No Vision needs: Yes Female Reproductive History Menstrual Age of Menarche: 13 Review of Systems Const Denies weight gain and Denies weight loss ENT Reports no additional complaints, Denies dysphagia and Denies odynophagia Card Reports no additional complaints Resp Reports no additional complaints GI Reports abdominal pain (epigstric), Denies belching, Denies melena, Reports bloating, Denies change in bowel habits, Reports constipation (Occasional), Denies dysphagia, Denies excessive flatus, Denies dyspepsia, Denies heartburn, Denies diarrhea, Denies loose stools, Denies nausea, Denies odynophagia and D enies vomiting Reports no additional complaints Musc Reports no additional complaints Neuro Reports no additional complaints Psych Reports no additional complaints Endo Reports no additional complaints Physical Exam Vital Signs: Last Vital Signs Pulse 62 02/18/25 16:17 BP 126/68 02/18/25 16:17 Pulse Ox 99 02/18/25 16:17 Oxygen Delivery Method Room Air 02/18/25 16:17 BMI result Body Mass Index 31.1 Const General: healthy appearing and no acute distress Nutritional Appearance: obese Orientation/consciousness: patient oriented x3 Resp Effort & Inspection: normal respiratory effort, able to speak in complete sentences, no tracheal deviation and symmetric chest movement Auscultation: clear to auscultation bilaterally Cardio Rate: regular rate GI Inspection: Yes normal to inspection, No distended and Yes obesity Palpation (GI): Soft to palpation, not firm, nontender and No hepatosplenomegaly present Auscultation: normal bowel sounds General: Yes no CVA tenderness Back/Spine/Pelvis Back: no CVA tenderness Skin General skin exam: elasticity normal, turgor normal and dry skin Neuro General: patient oriented x3 Psych Appearance: grossly normal Mental Status: mental status grossly normal Results Reviewed Results Reviewed: HIDA SCAN 01/04/25 FINDINGS: There is normal uptake and excretion of the radiopharmaceutical by the liver. Common bile duct activity is noted at 9 minutes. Gallbladder activity is seen at 10 minutes, and small bowel activity is noted at 14 minutes. After the administration of intravenous CCK, the estimated gallbladder ejection fraction is 40%, which is within normal limits. NM/NM hepatobiliary w pharm IMPRESSION: Normal hepatobiliary scan with normal gallbladder ejection fraction. Laboratory Tests 12/29/24 02/07/25 10:07 09:50 AST 20 25 ALT 25 22 Alkaline Phosphatase 139 H 137 H Total Protein 7.0 Lipase 12 Tiss Transglutamin IgA <1.0 Assessment & Plan Assessment & Plan (1) Abdominal pain: Code(s): R10.9 - Unspecified abdominal pain Category: Medical Qualifiers: Abdominal location: generalized Qualified Code(s): R10.84 - Generalized abdominal pain (2) Diverticulosis: Code(s): K57.90 - Diverticulosis of intestine, part unspecified, without perforation or abscess without bleeding Category: Medical (3) Chronic constipation: Code(s): K59.09 - Other constipation Category: Medical (4) GERD (gastroesophageal reflux disease): Code(s): K21.9 - Gastro-esophageal reflux disease without esophagitis Category: Medical Qualifiers: Esophagitis presence: esophagitis presence not specified Qualified Code(s): K21.9 - Gastro-esophageal reflux disease without esophagitis Plan Continue Lifestyle dietary modification, continue PPI daily. Avoiding late at night. Staying upright for minimal 3 hours after meals discussed with patient. Patient can start taking Linzess and see if she will have better results with him starting that. She will call our office if she will have excessive diarrhea or continues to be constipated. Increase fluid intake and activity to promote better bowel motility. Use dicyclomine only when needed. Follow-up in 4 weeks, sooner on as needed basis. She is agreeable to this plan and verbalizes understanding of instructions. She was given the opportunity to ask questions and all questions answered. Thank you for allowing me to participate in her care Medications: New linaclotide (Linzess) 145 mcg PO DAILY 30 caps 2RF Discontinued sennosides Discontinued Reason: Doctor's Order 17.2 mg (2 x 8.6 mg) PO BEDTIME 60 tabs 3RF constipation K59.00 - Constipation, unspecified Coding Level of Care Code Est Pt Level 4 (38460) Complex EM visit Add On G2211 Diagnoses Generalized abdominal pain R10.84 Abdominal location: generalized Diverticulosis K57.90 Chronic constipation K59.09 Gastroesophageal reflux disease, unspecified whether esophagitis present K21.9 Esophagitis presence: esophagitis presence not specified Time Spent (min) 35 Comment 20 minutes spent with patient and additional 15 minutes spent reviewing her records
[2025-02-18 16:17] VITALS: BP 126/68; PULSE 62; O2SAT 99; BMI 31.1
== END 2025-02-18 16:45 | disposition home or self-care (01) ==
LOC: HO.HGI 15:54
PROVIDERS: PCP Internal Medicine; Visit Provider Nurse Practitioner Family
DX: R10.84 Generalized abdominal pain (principal); K57.90 Diverticulosis of intestine, part unspecified, without perforation or abscess without bleeding; K59.09 Other constipation; K21.9 Gastro-esophageal reflux disease without esophagitis
CPT/HCPCS: 99214; G2211

== ENCOUNTER → 2025-02-18 15:54 | Outpatient (BNVA) | payer OTHER, SELFPAY | PROVIDERS: PCP Internal Medicine; Visit Provider Nurse Practitioner Family | DX: K57.90 Diverticulosis of intestine, part unspecified, without perforation or abscess without bleeding (principal); K59.09 Other constipation; K21.9 Gastro-esophageal reflux disease without esophagitis; R10.84 Generalized abdominal pain | CPT/HCPCS: 99212 ==

== ENCOUNTER 2025-02-19 15:46 | Outpatient (REF) | payer OTHER, SELFPAY | END 2025-02-19 15:47 | disposition home or self-care (01) | LOC: HO.MAMMO 15:46 | PROVIDERS: PCP Internal Medicine; Visit Provider Internal Medicine | DX: Z12.31 Encounter for screening mammogram for malignant neoplasm of breast (principal) | CPT/HCPCS: 77063; 77067 ==

== ENCOUNTER → 2025-02-19 16:00 | Outpatient (BNV) | payer OTHER, SELFPAY | PROVIDERS: PCP Internal Medicine; Visit Provider Internal Medicine | DX: Z12.31 Encounter for screening mammogram for malignant neoplasm of breast (principal) | CPT/HCPCS: 77063; 77067 ==

== ENCOUNTER → 2025-03-31 20:30 | Outpatient (REF) | payer OTHER, SELFPAY | LOC: HO.SL 20:30 | PROVIDERS: PCP Internal Medicine; Visit Provider Nurse Practitioner Family | DX: G47.19 Other hypersomnia (principal); G47.33 Obstructive sleep apnea (adult) (pediatric); E66.811 Obesity, class 1 | CPT/HCPCS: 95810 ==

== ENCOUNTER → 2025-03-31 21:40 | Outpatient (BNV) | payer OTHER, SELFPAY | PROVIDERS: PCP Internal Medicine; Visit Provider Psychiatry & Neurology Neurology | DX: G47.33 Obstructive sleep apnea (adult) (pediatric) (principal) | CPT/HCPCS: 95810 ==

== ENCOUNTER 2025-04-03 15:56 | Outpatient (AMB) | payer OTHER, SELFPAY ==
--- NOTE | 2025-04-03 16:01 | MHC.OFFVIS ---
Vital Signs 04/03/25 16:07 Height 5 ft 5 in Weight 186 lb BMI 30.9 BP 110/68 Blood Pressure Location Rt brachial Position Sitting Pulse 70 Pulse Source Pulse Oximeter Pulse Oximetry (%) 98 Oxygen Delivery Method Room Air Intake Visit Reasons: 1 mos FUV. Intake Note: ESTABLISHED PATIENT for IBS and chronic abd pain mgmt. Chief Complaint; C/O epigastric pain despite having improvement in BMs overall. Pt is wondering if switching linzess 145 mcg from daily to BID would be helpful and would like to discuss this with the provider. 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 Avoiding late at night. Staying upright for minimal 3 hours after meals discussed with patient. Patient can start taking Linzess and see if she will have better results with him starting that. She will call our office if she will have excessive diarrhea or continues to be constipated. Increase fluid intake and activity to promote better bowel motility. Use dicyclomine only when needed. Follow-up in 4 weeks, sooner on as needed basis. She is agreeable to this plan and verbalizes understanding of instructions. She was given the opportunity to ask questions and all questions answered. ? Thank you for allowing me to participate in her care Medications New linaclotide (Linzess) 145 mcg PO DAILY 30 caps 2RF Discontinued sennosides Discontinued Reason: Doctor's Order 17.2 mg (2 x 8.6 mg) PO BEDTIME 60 tabs 3RF constipation K59.00 TODAY'S VISIT Patient is here today for follow-up. Patient reports that she started taking Linzess and is feeling little better. However she does not feel like she empties her bowels completely. Patient still will have feeling of fullness after having a bowel movement. Patient reports abdominal will refer. Reports pain above umbilical area after eating and sometimes it does not matter if she eats or not. Patient reports that the area is tender to touch. Patient is taking dicyclomine occasionally as needed. Taking omeprazole in the morning in her symptoms of acid reflux are suppressed for the most part. Patient reports that she has been feeling significantly better but still is dealing with abdominal bloating. Patient reports that she is going to the gym every day. In 2 years patient last almost 100 lb. [facility] Medical History Moderate major depression Snores Hypothyroid Hypovitaminosis D Memory loss Elevated TSH Shortness of breath Morbid obesity Constipation by delayed colonic transit GERD (gastroesophageal reflux disease) Insomnia Back pain Surgical History Hx of colonoscopy S/P lumpectomy, left breast History of esophagogastroduodenoscopy (EGD) History of release of tendon History of History of removal of laparoscopic gastric banding device H/O bilateral breast reduction surgery History of abdominoplasty Hx of laparoscopic gastric banding Family History Father HIV (human immunodeficiency virus infection) Mother Osteoporosis Hypertension Sister Crohn disease Fibromyalgia Maternal Grandmother CVD (cardiovascular disease) Stroke Maternal Grandfather Diabetes Prostate cancer Colon cancer Maternal Aunt History of breast cancer Maternal Aunt Endometrial cancer Maternal Uncle Pancreatic cancer Maternal Aunt Ovarian cancer Social History Housing: House Are you a primary progressive care manager to a significant other at home: No Do you presently have visiting nurse or other home services: No Alcohol intake: current Alcohol intake frequency: holidays/special occasions only Alcohol type: beer and hard liquor Patient Tobacco Use Status: Former Tobacco user Tobacco use type: Cigarette e-Cigarette/Vaping Use: Never Used Second Hand Smoke Exposure: No service: No Current occupational status: employed 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/hazards: No Gender identity: Female Cognitive needs: No Hearing needs: No Vision needs: Yes Female Reproductive History Menstrual Age of Menarche: 13 Review of Systems Const Denies weight gain and Denies weight loss ENT Reports no additional complaints, Denies dysphagia and Denies odynophagia Card Reports no additional complaints Resp Reports no additional complaints GI Reports abdominal pain (epigstric), Denies belching, Denies melena, Reports bloating, Denies change in bowel habits, Reports constipation (Occasional), Denies dysphagia, Denies excessive flatus, Denies dyspepsia, Denies heartburn, Denies diarrhea, Denies loose stools, Denies nausea, Denies odynophagia and Denies vomiting Reports no additional complaints Musc Reports no additional complaints Neuro Reports no additional complaints Psych Reports no additional complaints Endo Reports no additional complaints Physical Exam Const General: healthy appearing and no acute distress Nutritional Appearance: obese Orientation/consciousness: patient oriented x3 Resp Effort & Inspection: normal respiratory effort, able to speak in complete sentences, no tracheal deviation and symmetric chest movement Auscultation: clear to auscultation bilaterally Cardio Rate: regular rate GI Inspection: No distended, Yes obesity and Yes visible herniation Palpation (GI): Soft to palpation, not firm, nontender, No hepatosplenomegaly present and Hernia present (Periumbilical) Auscultation: normal bowel sounds General: Yes no CVA tenderness Back/Spine/Pelvis Back: no CVA tenderness Skin General skin exam: elasticity normal, turgor normal and dry skin Neuro General: patient oriented x3 Psych Appearance: grossly normal Mental Status: mental status grossly normal Assessment & Plan Assessment & Plan (1) Abdominal pain: Code(s): R10.9 - Unspecified abdominal pain Category: Medical Qualifiers: Abdominal location: generalized Qualified Code(s): R10.84 - Generalized abdominal pain (2) Diverticulosis: Code(s): K57.90 - Diverticulosis of intestine, part unspecified, without perforation or abscess without bleeding Category: Medical (3) Chronic constipation: Code(s): K59.09 - Other constipation Category: Medical (4) GERD (gastroesophageal reflux disease): Code(s): K21.9 - Gastro-esophageal reflux disease without esophagitis Category: Medical Qualifiers: Esophagitis presence: esophagitis presence not specified Qualified Code(s): K21.9 - Gastro-esophageal reflux disease without esophagitis (5) Umbilical hernia: Code(s): K42.9 - Umbilical hernia without obstruction or gangrene Qualifiers: Obstruction and gangrene presence: without obstruction or gangrene Qualified Code(s): K42.9 - Umbilical hernia without obstruction or gangrene Plan Patient will continue taking PPI daily. Avoid dietary triggers in late night snacking. Staying upright for minimum 3 hours after meals discussed with patient. Continue low FODMAP diet. Will increase Linzess to 290 mcg daily. Increase fluid intake and activity to promote better bowel motility. Referral to General surgery to evaluate periumbilical hernia. Patient will report in the office in 3 months, sooner on as needed basis. She is agreeable to this plan and verbalizes understanding of instructions. She was given the opportunity to ask questions and all questions answered. Thank you for allowing me to participate in her care Orders: Orders CT abdomen pelvis w IV con Today R10.9 - Unspecified abdominal pain Creatinine Today R10.11 - Right upper quadrant pain Blood Urea Nitrogen Today R10.11 - Right upper quadrant pain Referrals General Surgery Referral K42.9 - Umbilical hernia without obstruction or gangrene Medications: New linaclotide (Linzess) 290 mcg PO QAM 30 caps 4RF K59.00 - Constipation, unspecified Discontinued linaclotide (Linzess) Discontinued Reason: Doctor's Order 145 mcg PO DAILY 30 caps 2RF Coding Level of Care Code Est Pt Level 4 (02172) Complex EM visit Add On G2211 Diagnoses Generalized abdominal pain R10.84 Abdominal location: generalized Diverticulosis K57.90 Chronic constipation K59.09 Gastroesophageal reflux disease, unspecified whether esophagitis present K21.9 Esophagitis presence: esophagitis presence not specified Umbilical hernia without obstruction and without gangrene K42.9 Obstruction and gangrene presence: without obstruction or gangrene Time Spent (min) 35 Comment 25 minute spent with patient and additional 10 minutes spent reviewing her records
[2025-04-03 16:07] VITALS: BP 110/68; PULSE 70; O2SAT 98; BMI 30.9
== END 2025-04-03 16:26 | disposition home or self-care (01) ==
LOC: HO.HGI 15:57
PROVIDERS: PCP Internal Medicine; Visit Provider Nurse Practitioner Family
DX: R10.84 Generalized abdominal pain (principal); K57.90 Diverticulosis of intestine, part unspecified, without perforation or abscess without bleeding; K59.09 Other constipation; K21.9 Gastro-esophageal reflux disease without esophagitis; K42.9 Umbilical hernia without obstruction or gangrene
CPT/HCPCS: 99214; G2211

== ENCOUNTER → 2025-04-03 15:56 | Outpatient (BNVA) | payer OTHER, SELFPAY | PROVIDERS: PCP Internal Medicine; Visit Provider Nurse Practitioner Family | DX: K21.9 Gastro-esophageal reflux disease without esophagitis (principal); K57.90 Diverticulosis of intestine, part unspecified, without perforation or abscess without bleeding; K59.09 Other constipation; R10.84 Generalized abdominal pain | CPT/HCPCS: 99212 ==

== ENCOUNTER 2025-04-09 12:52 | Outpatient (REF) | payer OTHER, SELFPAY ==
--- NOTE | ~2025-04-09 | US_ITS ---
EXAMINATION: BILATERAL CAROTID ULTRASOUND WITH DOPPLER HISTORY: H93.A9 - Pulsatile tinnitus, unspecified ear COMPARISON: There are no prior studies available for comparison. TECHNIQUE: Real time and Color and Spectral doppler ultrasonography of the carotid and vertebral arteries was performed in multiple planes. FINDINGS: No significant plaque is seen. VERTEBRAL FLOW DIRECTION: Antegrade bilaterally. PEAK SYSTOLIC VELOCITIES (in cm/sec): RIGHT: CCA: Prox: 126 Dist: 111 ICA: Prox: 141 Mid: 103 Dist: 85.5 ICA/CCA Ratio: 1.12 ECA: 89.1 Peak ICA end diastolic velocity (EDV): 43.1 LEFT: CCA: Prox: 107 Dist: 139 ICA: Prox: 69.8 Mid: 89.4 Dist: 89.4 ICA/CCA Ratio: 0.64 ECA: 71.5 Peak ICA end diastolic velocity (EDV): 43.1 US/US carotid duplex BI IMPRESSION: No hemodynamically significant internal carotid artery stenosis bilaterally. Electronically signed by: Josh Leonardo MD 04/09/2025 02:00 PM EDT
== END 2025-04-09 12:53 | disposition home or self-care (01) ==
LOC: HO.US 12:52
PROVIDERS: PCP Internal Medicine; Visit Provider Nurse Practitioner Family
DX: H93.A9 Pulsatile tinnitus, unspecified ear (principal); E66.811 Obesity, class 1
CPT/HCPCS: 93880

== ENCOUNTER → 2025-04-09 12:54 | Outpatient (BNV) | payer OTHER, SELFPAY | PROVIDERS: PCP Internal Medicine; Visit Provider Radiology Diagnostic Radiology | DX: H93.A9 Pulsatile tinnitus, unspecified ear (principal) | CPT/HCPCS: 93880 ==

== ENCOUNTER 2025-05-22 13:20 | Outpatient (REF) | payer OTHER, SELFPAY ==
--- NOTE | ~2025-05-22 | CT_ITS ---
EXAMINATION: CT ABDOMEN AND PELVIS WITH CONTRAST CLINICAL INFORMATION: Abdominal pain , cholelithiasis COMPARISON: Ultrasound August 26, 2024 TECHNIQUE: Multidetector volumetric images were obtained from the superior aspect of the liver through the pubic symphysis following administration 85 mL of Omnipaque 350 intravenous contrast. Sagittal and coronal reformatted images were obtained on the technologist's workstation. Oral contrast: No This CT examination was performed using dose optimization techniques as appropriate, variously including the following: *Automated exposure control *Adjustment of mA and/or kV according to patient size (this includes techniques or standardized protocols for targeted exams where dose is matched to indication/reason for exam; i.e. extremities or head) *Use of iterative reconstruction technique DLP: 578 mGY*cm FINDINGS: LUNG BASES: The visualized lung bases are unremarkable. LIVER, GALLBLADDER, AND BILIARY TREE: Coarse calcifications are present in the right hepatic lobe, unchanged from recent ultrasound. Intrahepatic bile ducts are mildly prominent Gallstones present on ultrasound are nonvisualized CT. PANCREAS: Unremarkable. SPLEEN: Unremarkable. ADRENAL GLANDS: Unremarkable. KIDNEYS AND URETERS: There is multifocal scarring of the right kidney involving the upper pole, equatorial region of the kidney, in the lower pole. There is a 4 mm calcification in the superior right kidney. There is focal scarring in the anterior lower left kidney and a 7 mm simple renal cyst in the mid to upper kidney. BLADDER: Unremarkable. GASTROINTESTINAL TRACT: There are changes consistent with gastric bypass surgery. There is a small sliding hiatal hernia. The small and large bowel are unremarkable. The appendix is unremarkable. ABDOMINAL WALL: No significant hernia is appreciated. LYMPH NODES: Normal. VASCULAR: Unremarkable. PELVIC VISCERA: There is an IUD in the upper uterine canal. There is a dominant follicle, one each ovary. OSSEOUS STRUCTURES: Mild to moderate displacement is present in the thoracic spine. CT/CT abdomen pelvis w IV con IMPRESSION: Cholelithiasis demonstrated on the prior ultrasound is not visible by CT. Intrahepatic bile ducts are borderline prominent. Multifocal scarring of the right kidney and focal scarring in the left kidney is probably related to remote pyelonephritis. Fleischner guidelines were followed. Electronically signed by: Fermin Diaz MD 05/22/2025 04:29 PM EDT
[2025-05-22] MEDS: iohexoL 350 MG/ML 100 ML INFUS..BTL 85 ML IV (16:04)
[2025-05-22] MEDS: Barium Sulfate Oral (Mocha) 450 ML ORAL.SUSP 900 ML PO (16:04)
== END 2025-05-22 13:21 | disposition home or self-care (01) ==
LOC: HO.CT 13:20
PROVIDERS: PCP Internal Medicine; Visit Provider Nurse Practitioner Family
DX: R10.9 Unspecified abdominal pain (principal)
CPT/HCPCS: 74177; Q9967

== ENCOUNTER → 2025-05-22 13:22 | Outpatient (BNV) | payer OTHER, SELFPAY | PROVIDERS: PCP Internal Medicine; Visit Provider Radiology Diagnostic Radiology | DX: R10.9 Unspecified abdominal pain (principal) | CPT/HCPCS: 74177 ==

== ENCOUNTER 2025-06-06 13:48 | Outpatient (AMB) | payer OTHER, SELFPAY ==
--- NOTE | 2025-06-06 14:03 | A.OFFVIS_ITS ---
Vital Signs 06/06/25 14:15 Height 5 ft 5 in Weight 188 lb BMI 31.3 BP 130/76 Blood Pressure Location Lt brachial Position Sitting Pulse 66 Intake Visit Reasons: umbilical hernia Intake Note: Patient is seen in office for evaluation of an umbilical hernia. 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 The pain seems to be exacerbated by eating, causing significant discomfort especially when laying on her stomach. She reports feeling a fullness or mass in the upper abdomen at the site of her increased pain which was thought to be caused by a hernia. She previously underwent a lap band which was subsequently removed followed by a gastric bypass surgery. Her bowels alternate between diarrhea and constipation for which she takes Linzess and Bentyl. A CT abdomen and pelvis revealed a tiny umbilical hernia however no epigastric or ventral hernias are identified. There was an area of calcification located above the muscle which is suggestive of scar tissue perhaps from the prior abdominal surgeries. An ultrasound of the abdomen revealed gallstones within the gallbladder which are small. No wall thickening or pericholecystic fluid is identified. A HIDA scan revealed normal filling of the gallbladder with a normal ejection fraction of 40%. [facility] Medical History Moderate major depression Snores Hypothyroid Hypovitaminosis D Memory loss Elevated TSH Shortness of breath Morbid obesity Constipation by delayed colonic transit GERD (gastroesophageal reflux disease) Insomnia Back pain Surgical History Hx of colonoscopy S/P lumpectomy, left breast History of esophagogastroduodenoscopy (EGD) History of release of tendon History of History of removal of laparoscopic gastric banding device H/O bilateral breast reduction surgery History of abdominoplasty Hx of laparoscopic gastric banding Family History Father HIV (human immunodeficiency virus infection) Mother Osteoporosis Hypertension Sister Crohn disease Fibromyalgia Maternal Grandmother CVD (cardiovascular disease) Stroke Maternal Grandfather Diabetes Prostate cancer Colon cancer Maternal Aunt History of breast cancer Maternal Aunt Endometrial cancer Maternal Uncle Pancreatic cancer Maternal Aunt Ovarian cancer Social History Housing: House Are you a primary child care attendant school to a significant other at home: No Do you presently have visiting nurse or other home services: No Alcohol intake: current Alcohol intake frequency: holidays/special occasions only Alcohol type: beer and hard liquor Patient Tobacco Use Status: Former Tobacco user Tobacco use type: Cigarette e-Cigarette/Vaping Use: Never Used Second Hand Smoke Exposure: No service: No Current occupational status: employed 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/hazards: No Gender identity: Female Cognitive needs: No Hearing needs: No Vision needs: Yes Female Reproductive History Menstrual Age of Menarche: 13 Review of Systems Const All systems reviewed & are unremarkable except as noted in HPI and below Physical Exam Vital Signs: Last Vital Signs Pulse 66 06/06/25 14:15 BP 130/76 06/06/25 14:15 BMI result Body Mass Index 31.3 Const General: no acute distress Nutritional Appearance: well nourished Orientation/consciousness: patient oriented x3 Limitations: no limitations Resp Effort & Inspection: normal respiratory effort, no audible wheezes, no cough and no respiratory distress GI Other: No definite hernia noted with Valsalva maneuvers in the standing position. No tenderness is elicited to palpation. Inspection: Yes normal to inspection Palpation (GI): Soft to palpation, nontender, no guarding, not rigid and no hernias Skin Other: Warm, dry, normal color, no rash Neuro General: patient oriented x3 Extrem General: Yes no clubbing, cyanosis or edema Assessment & Plan Assessment & Plan (1) Abdominal pain: Code(s): R10.9 - Unspecified abdominal pain Category: Medical Qualifiers: Abdominal location: epigastric Qualified Code(s): R10.13 - Epigastric pain Plan 50-year-old female patient presenting for evaluation of epigastric abdominal pain found on CT abdomen and pelvis to have a small umbilical hernia. In reviewing the scan this is in the area of the patient's abdominal symptoms and in fact the hernias very very small and unlikely to be symptomatic. No other ventral hernias were identified on the skin. As her pain is mainly postprandial, it is possible that this is gallbladder related pain. The pain seems to be made worse with fatty/fried foods. Previous ultrasound did confirmed small gallstones within the gallbladder which are more, and after inez atric surgery. As her symptoms are mild at this time no surgical intervention is necessary however for symptoms continue, she may benefit from laparoscopic or possible open cholecystectomy. No surgical intervention for hernias required at this time. The patient expressed understanding and agrees with the plan. Coding Level of Care Code New Pt Level 4 (80343) Diagnoses Epigastric pain R10.13 Abdominal location: epigastric
[2025-06-06 14:15] VITALS: BP 130/76; PULSE 66; BMI 31.3
== END 2025-06-06 14:32 | disposition home or self-care (01) ==
LOC: HO.HGS 13:48
PROVIDERS: PCP Internal Medicine; Visit Provider Surgery
DX: R10.13 Epigastric pain (principal)
CPT/HCPCS: 99214

== ENCOUNTER → 2025-06-06 13:48 | Outpatient (BNVA) | payer OTHER, SELFPAY | PROVIDERS: PCP Internal Medicine; Visit Provider Surgery | DX: R10.13 Epigastric pain (principal); Z98.84 Bariatric surgery status | CPT/HCPCS: 99212 ==

== ENCOUNTER 2025-07-03 16:08 | Outpatient (AMB) | payer OTHER, SELFPAY ==
--- NOTE | 2025-07-03 16:11 | A.OFFVIS_ITS ---
Vital Signs 07/03/25 16:14 Height 5 ft 5 in Weight 186 lb BMI 30.9 BP 128/72 Blood Pressure Location Rt brachial Position Sitting Pulse 70 Pulse Source Pulse Oximeter Pulse Oximetry (%) 97 Oxygen Delivery Method Room Air Intake Visit Reasons: 3 month follow up Intake Note: ESTABLISHED PATIENT for IBS and chronic abd pain mgmt. CT done. Chief Complaint; Pt denies any new GI sx or concerns. Pt does confirm chronic sx are still persistent intermittently. 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 Avoid dietary triggers in late night snacking. Staying upright for minimum 3 hours after meals discussed with patient. Continue low FODMAP diet. Will increase Linzess to 290 mcg daily. Increase fluid intake and activity to promote better bowel motility. Referral to General surgery to evaluate periumbilical hernia. Patient will report in the office in 3 months, sooner on as needed basis. She is agreeable to this plan and verbalizes understanding of instructions. She was given the opportunity to ask questions and all questions answered. ? Thank you for allowing me to participate in her care Orders CT abdomen pelvis w IV con Today R10.9 Creatinine Today R10.11 Blood Urea Nitrogen Today R10.11 Referrals General Surgery Referral K42.9 New linaclotide (Linzess) 290 mcg PO QAM 30 caps 4RF K59.00 Discontinued linaclotide (Linzess) Discontinued Reason: Doctor's Order 145 mcg PO DAILY 30 caps 2RF TODAY'S VISIT Patient is here today for follow-up and to discuss CT scan results. Patient reports to be feeling better for the most part. Patient is trying to change her diet and eating healthier. Symptoms of acid reflux are suppressed as well as epigastric pain postprandially. Patient is currently taking omeprazole and reports controlled acid reflux. Patient denies over eating or eating late at night. Patient still reports abdominal bloating with certain meals. Patient was seen by general surgery and does not require surgical intervention for umbilical hernia at this time. Previously seen gallstones on ultrasound not seen on CT scan. Patient reports that her right upper quadrant and epigastric pain postprandially is seldom and only experienced occasionally. Patient describes the pain as sharp full like feeling, for the most part accompanied by bloating. Patient uses simethicone to help with symptoms not always relieved. Patient denies nausea or vomiting. Denies dyspepsia, dysphagia or odynophagia. Patient reports that she is moving her bowels better now that she is taking Li nzess 290 mcg daily. [facility] Medical History (Updated 07/27/25 @ 17:06 by Chelsea Tate [facility]) Abdominal pain Moderate major depression Snores Hypothyroid Hypovitaminosis D Memory loss Elevated TSH Shortness of breath Morbid obesity Constipation by delayed colonic transit GERD (gastroesophageal reflux disease) Insomnia Back pain Surgical History Hx of colonoscopy S/P lumpectomy, left breast History of esophagogastroduodenoscopy (EGD) History of release of tendon History of History of removal of laparoscopic gastric banding device H/O bilateral breast reduction surgery History of abdominoplasty Hx of laparoscopic gastric banding Family History Father HIV (human immunodeficiency virus infection) Mother Osteoporosis Hypertension Sister Crohn disease Fibromyalgia Maternal Grandmother CVD (cardiovascular disease) Stroke Maternal Grandfather Diabetes Prostate cancer Colon cancer Maternal Aunt History of breast cancer Maternal Aunt Endometrial cancer Maternal Uncle Pancreatic cancer Maternal Aunt Ovarian cancer Social History Housing: House Are you a primary early breastfeeding care specialist to a significant other at home: No Do you presently have visiting nurse or other home services: No Alcohol intake: current Alcohol intake frequency: a few times a week Alcohol type: beer and hard liquor Patient Tobacco Use Status: Former Tobacco user Tobacco use type: Cigarette e-Cigarette/Vaping Use: Never Used Second Hand Smoke Exposure: No service: No Current occupational status: employed 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/hazards: No Gender identity: Female Cognitive needs: No Hearing needs: No Vision needs: Yes Female Reproductive History Menstrual Age of Menarche: 13 Review of Systems Const Denies weight gain and Denies weight loss ENT Reports no additional complaints, Denies dysphagia and Denies odynophagia Card Reports no additional complaints Resp Reports no additional complaints GI Reports abdominal pain (epigstric), Denies belching, Denies melena, Reports bloating, Denies change in bowel habits, Reports constipation (Occasional), Denies dysphagia, Denies excessive flatus, Denies dyspepsia, Denies heartburn, Denies diarrhea, Denies loose stools, Denies nausea, Denies odynophagia and Denies vomiting Reports no additional complaints Musc Reports no additional complaints Neuro Reports no additional complaints Psych Reports no additional complaints Endo Reports no additional complaints Physical Exam Vital Signs: Last Vital Signs Pulse 70 07/03/25 16:14 BP 128/72 07/03/25 16:14 Pulse Ox 97 07/03/25 16:14 Oxygen Delivery Method Room Air 07/03/25 16:14 BMI result Body Mass Index 30.9 Const General: healthy appearing and no acute distress Nutritional Appearance: obese Orientation/consciousness: patient oriented x3 Resp Effort & Inspection: normal respiratory effort, able to speak in complete sentences, no tracheal deviation and symmetric chest movement Auscultation: clear to auscultation bilaterally Cardio Rate: regular rate GI Inspection: No distended, Yes obesity and Yes visible herniation Palpation (GI): Soft to palpation, not firm, nontender, No hepatosplenomegaly present and Hernia present (Periumbilical) Auscultation: normal bowel sounds General: Yes no CVA tenderness Back/Spine/Pelvis Back: no CVA tenderness Skin General skin exam: elasticity normal, turgor normal and dry skin Neuro General: patient oriented x3 Psych Appearance: grossly normal Mental Status: mental status grossly normal Results Reviewed Results Reviewed: CT OF ABDOMEN AND PELVIS FINDINGS: LUNG BASES: The visualized lung bases are unremarkable. LIVER, GALLBLADDER, AND BILIARY TREE: Coarse calcifications are present in the right hepatic lobe, unchanged from recent ultrasound. Intrahepatic bile ducts are mildly prominent Gallstones present on ultrasound are nonvisualized CT. PANCREAS: Unremarkable. SPLEEN: Unremarkable. ADRENAL GLANDS: Unremarkable. KIDNEYS AND URETERS: There is multifocal scarring of the right kidney involving the upper pole, equatorial region of the kidney, in the lower pole. There is a 4 mm calcification in the superior right kidney. There is focal scarring in the anterior lower left kidney and a 7 mm simple renal cyst in the mid to upper kidney. BLADDER: Unremarkable. GASTROINTESTINAL TRACT: There are changes consistent with gastric bypass surgery. There is a small sliding hiatal hernia. The small and large bowel are unremarkable. The appendix is unremarkable. ABDOMINAL WALL: No significant hernia is appreciated. LYMPH NODES: Normal. VASCULAR: Unremarkable. PELVIC VISCERA: There is an IUD in the upper uterine canal. There is a dominant follicle, one each ovary. OSSEOUS STRUCTURES: Mild to moderate displacement is present in the thoracic spine. CT/CT abdomen pelvis w IV con IMPRESSION: Cholelithiasis demonstrated on the prior ultrasound is not visible by CT. Intrahepatic bile ducts are borderline prominent. Multifocal scarring of the right kidney and focal scarring in the left kidney is probably related to remote pyelonephritis. Assessment & Plan Assessment & Plan (1) GERD (gastroesophageal reflux disease): Code(s): K21.9 - Gastro-esophageal reflux disease without esophagitis Category: Medical Qualifiers: Esophagitis presence: esophagitis presence not specified Qualified Code(s): K21.9 - Gastro-esophageal reflux disease without esophagitis (2) Constipation by delayed colonic transit: Code(s): K59.01 - Slow transit constipation Category: Medical (3) Chronic constipation: Code(s): K59.09 - Other constipation Category: Medical (4) Diverticulosis: Code(s): K57.90 - Diverticulosis of intestine, part unspecified, without perforation or abscess without bleeding Category: Medical (5) Abdominal pain: Code(s): R10.9 - Unspecified abdominal pain Category: Medical Qualifiers: Abdominal location: epigastric Qualified Code(s): R10.13 - Epigastric pain (6) Bloating: Code(s): R14.0 - Abdominal distension (gaseous) Category: Medical Plan Patient will continue current regimen with PPI and diet. Continue avoiding dietary triggers and late night snacking. Staying upright for minimum 3 hours after meals discussed with patient. Continue simethicone as needed. I will send her script for Creon to help her with digestion and hopefully will decrease the bloating. Patient was educated how to take Creon. Continue current bowel regimen. Take Linzess daily. Low FODMAP diet recommended as last visit. Increase fluid intake and activity to promote better bowel motility. Patient will follow-up in the office in 2-3 months, sooner on as needed basis. She is agreeable to this plan and verbalizes understanding of instructions. She was gi chadwick the opportunity to ask questions and all questions answered. Thank you for allowing me to participate in her care Medications: New iykgqu-wxrsvadl-nxyrilw 36,000-114,000- 180,000 unit (Creon) administer with meals and/or snacks 1 cap PO QID 120 caps 3RF K86.89 - Other specified diseases of pancreas Coding Level of Care Code Est Pt Level 4 (97017) Complex EM visit Add On G2211 Diagnoses Gastroesophageal reflux disease, unspecified whether esophagitis present K21.9 Esophagitis presence: esophagitis presence not specified Constipation by delayed colonic transit K59.01 Chronic constipation K59.09 Diverticulosis K57.90 Epigastric pain R10.13 Abdominal location: epigastric Bloating R14.0 Time Spent (min) 35 Comment 25 minutes spent with patient and additional 10 minutes spent reviewing her records
[2025-07-03 16:14] VITALS: BP 128/72; PULSE 70; O2SAT 97; BMI 30.9
== END 2025-07-03 16:28 | disposition home or self-care (01) ==
LOC: HO.HGI 16:09
PROVIDERS: PCP Internal Medicine; Visit Provider Nurse Practitioner Family
DX: K21.9 Gastro-esophageal reflux disease without esophagitis (principal); K59.01 Slow transit constipation; K59.09 Other constipation; K57.90 Diverticulosis of intestine, part unspecified, without perforation or abscess without bleeding; R10.13 Epigastric pain; R14.0 Abdominal distension (gaseous)
CPT/HCPCS: 99214

== ENCOUNTER → 2025-07-03 16:08 | Outpatient (BNVA) | payer OTHER, SELFPAY | PROVIDERS: PCP Internal Medicine; Visit Provider Nurse Practitioner Family | DX: K57.90 Diverticulosis of intestine, part unspecified, without perforation or abscess without bleeding (principal); K59.09 Other constipation; K59.01 Slow transit constipation; K21.9 Gastro-esophageal reflux disease without esophagitis; R14.0 Abdominal distension (gaseous); R10.13 Epigastric pain; Z98.84 Bariatric surgery status | CPT/HCPCS: 99212 ==

== ENCOUNTER 2025-07-27 09:32 | Outpatient (REF) | payer OTHER, SELFPAY ==
[2025-07-27 11:32] LABS: Thyroid Stimulating Hormone 2.90 uIU/mL (0.32-4.0)
[2025-07-27 11:41] LABS: Folate 11.8 ng/mL (> or = 4.0); Vitamin B12 649 pg/mL (200-900)
== END 2025-07-27 09:33 | disposition home or self-care (01) ==
LOC: HO.LAB 09:32
PROVIDERS: PCP Internal Medicine; Visit Provider Internal Medicine
DX: E53.8 Deficiency of other specified B group vitamins (principal); R79.89 Other specified abnormal findings of blood chemistry
CPT/HCPCS: 36415; 82607; 82746; 84443

== ENCOUNTER 2025-10-01 15:52 | Outpatient (AMB) | payer OTHER, SELFPAY ==
[2025-10-01 16:01] VITALS: BP 120/78; PULSE 70; O2SAT 99
--- NOTE | 2025-10-01 16:01 | A.OFFVIS_ITS ---
Vital Signs 10/01/25 16:01 Height 5 ft 5 in BMI Reason not done Patient refused/unable BP 120/78 Blood Pressure Location Rt brachial Position Sitting Pulse 70 Pulse Source Pulse Oximeter Pulse Oximetry (%) 99 Oxygen Delivery Method Room Air Intake Visit Reasons: 3m Intake Note: ESTABLISHED PATIENT for IBS and chronic abd pain mgmt. Chief Complaint; C/O chronic abd pain despite current therapies. Pt reports that her BMs have become more regular since starting Creon and Linzess. However, her pain persists and remains in the upper abd. 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 Continue avoiding dietary triggers and late night snacking. Staying upright for minimum 3 hours after meals discussed with patient. Continue simethicone as needed. I will send her script for Creon to help her with digestion and hopefully will decrease the bloating. Patient was educated how to take Creon. Continue current bowel regimen. Take Linzess daily. Low FODMAP diet recommended as last visit. Increase fluid intake and activity to promote better bowel motility. Patient will follow- up in the office in 2-3 months, sooner on as needed basis. She is agreeable to this plan and verbalizes understanding of instructions. She was given the opportunity to ask questions and all questions answered. ? Thank you for allowing me to participate in her care New eybrhj-cyqomvkq-fpxdine 36,000-114,000- 180,000 unit (Creon) administer with meals and/or snacks 1 cap PO QID 120 caps 3RF K86.89 TODAY'S VISIT: Patient is here today for follow-up. Patient reports that since she started taking Creon her bloating is better and she is moving her bowels well. Patient is taking Linzess. Denies melena, hematochezia, unintentional weight loss or ribbon like stools. Patient denies any dyspepsia, dysphagia or odynophagia. Patient is taking omeprazole in the morning. Takes dicyclomine as needed if she has any abdominal cramping. Patient reports she still has right upper quadrant pain. Previously patient had CT scan that showed tiny umbilical hernia, however no ventral or any other hernias were identified. Patient reports that she feels when she touches she does have significant pain. Patient denies any postprandial abdominal discomfort. Denies any nausea or vomiting. Denies right upper quadrant pain. Patient was seen by General surgery and evaluated. No hernia found. [facility] Medical History Abdominal pain Moderate major depression Snores Hypothyroid Hypovitaminosis D Memory loss Elevated TSH Shortness of breath Morbid obesity Constipation by delayed colonic transit GERD (gastroesophageal reflux disease) Insomnia Back pain Surgical History Hx of colonoscopy S/P lumpectomy, left breast History of esophagogastroduodenoscopy (EGD) History of release of tendon History of History of removal of laparoscopic gastric banding device H/O bilateral breast reduction surgery History of abdominoplasty Hx of laparoscopic gastric banding Family History Father HIV (human immunodeficiency virus infection) Mother Osteoporosis Hypertension Sister Crohn disease Fibromyalgia Maternal Grandmother CVD (cardiovascular disease) Stroke Maternal Grandfather Diabetes Prostate cancer Colon cancer Maternal Aunt History of breast cancer Maternal Aunt Endometrial cancer Maternal Uncle Pancreatic cancer Maternal Aunt Ovarian cancer Social History Housing: House Are you a primary pharmacy care coordinator to a significant other at home: No Do you presently have visiting nurse or other home services: No Alcohol intake: current Alcohol intake frequency: a few times a week Alcohol type: beer and hard liquor Patient Tobacco Use Status: Former Tobacco user Tobacco use type: Cigarette e-Cigarette/Vaping Use: Never Used Second Hand Smoke Exposure: No service: No Current occupational status: employed 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/hazards: No Gender identity: Female Cognitive needs: No Hearing needs: No Vision needs: Yes Female Reproductive History Menstrual Age of Menarche: 13 Review of Systems Const Denies weight gain and Denies weight loss ENT Reports no additional complaints, Denies dysphagia and Denies odynophagia Card Reports no additional complaints Resp Reports no additional complaints GI Reports abdominal pain (epigstric), Denies belching, Denies melena, Reports bloating, Denies change in bowel habits, Reports constipation (Occasional), Denies dysphagia, Denies excessive flatus, Denies dyspepsia, Denies heartburn, Denies diarrhea, Denies loose stools, Denies nausea, Denies odynophagia and Denies vomiting Reports no additional complaints Musc Reports no additional complaints Neuro Reports no additional complaints Psych Reports no additional complaints Endo Reports no additional complaints Physical Exam Vital Signs: Last Vital Signs Pulse 70 10/01/25 16:01 BP 120/78 10/01/25 16:01 Pulse Ox 99 10/01/25 16:01 Oxygen Delivery Method Room Air 10/01/25 16:01 Const General: healthy appearing and no acute distress Nutritional Appearance: obese Orientation/consciousness: patient oriented x3 Resp Effort & Inspection: normal respiratory effort, able to speak in complete sentences, no tracheal deviation and symmetric chest movement Auscultation: clear to auscultation bilaterally Cardio Rate: regular rate GI Inspection: No distended, Yes obesity and Yes visible herniation Palpation (GI): Soft to palpation, not firm, nontender, No hepatosplenomegaly present and Hernia present (Periumbilical) Auscultation: normal bowel sounds General: Yes no CVA tenderness Back/Spine/Pelvis Back: no CVA tenderness Skin General skin exam: elasticity normal, turgor normal and dry skin Neuro General: patient oriented x3 Psych Appearance: grossly normal Mental Status: mental status grossly normal Assessment & Plan Assessment & Plan (1) GERD (gastroesophageal reflux disease): Code(s): K21.9 - Gastro-esophageal reflux disease without esophagitis Category: Medical Qualifiers: Esophagitis presence: esophagitis presence not specified Qualified Co de(s): K21.9 - Gastro-esophageal reflux disease without esophagitis (2) Constipation by delayed colonic transit: Code(s): K59.01 - Slow transit constipation Category: Medical (3) Chronic constipation: Code(s): K59.09 - Other constipation Category: Medical (4) Diverticulosis: Code(s): K57.90 - Diverticulosis of intestine, part unspecified, without perforation or abscess without bleeding Category: Medical (5) Abdominal pain: Code(s): R10.9 - Unspecified abdominal pain Category: Medical Qualifiers: Abdominal location: epigastric Qualified Code(s): R10.13 - Epigastric pain (6) Bloating: Code(s): R14.0 - Abdominal distension (gaseous) Category: Medical Plan Patient will continue Linzess daily. Increase fluid intake and activity to promote bowel motility. Right upper quadrant small lipoma versus hernia. Will send patient for ultrasound. Continue Creon. Continue avoiding dietary triggers in late night snacking. Staying upright for minimum 3 hours after meals discussed with patient. Omeprazole daily. Patient will follow up 3 months. She was encouraged to call us if she will have any GI concerning symptoms. Patient is agreeable to this plan and verbalizes understanding of instructions. She was given the opportunity to ask questions and all questions answered. Thank you for allowing me to participate in her care Orders: Orders US abdomen limited 10/01/25 K43.9 - Ventral hernia without obstruction or gangrene, K42.9 - Umbilical hernia without obstruction or gangrene Coding Level of Care Code Est Pt Level 4 (07290) Add On Problem Visit Only Diagnoses Gastroesophageal reflux disease, unspecified whether esophagitis present K21.9 Esophagitis presence: esophagitis presence not specified Constipation by delayed colonic transit K59.01 Chronic constipation K59.09 Diverticulosis K57.90 Epigastric pain R10.13 Abdominal location: epigastric Bloating R14.0 Time Spent (min) 35 Comment 25 minutes spent with patient and additional 10 minutes spent reviewing her records
== END 2025-10-01 16:27 | disposition home or self-care (01) ==
LOC: HO.HGI 15:53
PROVIDERS: PCP Internal Medicine; Visit Provider Nurse Practitioner Family
DX: K21.9 Gastro-esophageal reflux disease without esophagitis (principal); K59.01 Slow transit constipation; K59.09 Other constipation; K57.90 Diverticulosis of intestine, part unspecified, without perforation or abscess without bleeding; R10.13 Epigastric pain; R14.0 Abdominal distension (gaseous)
CPT/HCPCS: 99214

== ENCOUNTER → 2025-10-01 15:52 | Outpatient (BNVA) | payer OTHER, SELFPAY | PROVIDERS: PCP Internal Medicine; Visit Provider Nurse Practitioner Family | DX: K21.9 Gastro-esophageal reflux disease without esophagitis (principal); K59.01 Slow transit constipation; K57.20 Diverticulitis of large intestine with perforation and abscess without bleeding; R10.13 Epigastric pain; R14.0 Abdominal distension (gaseous); Z79.899 Other long term (current) drug therapy | CPT/HCPCS: 99212 ==

== ENCOUNTER 2025-10-14 09:23 | Outpatient (REF) | payer OTHER, SELFPAY ==
--- NOTE | ~2025-10-14 | US_ITS ---
CLINICAL HISTORY: K43.9 - Ventral hernia without obstruction or gangrene US abdomen limited Comparison: CT/[place] - CT ABDOMEN PELVIS WITH IV CONTRAST - 05/22/25 15:33 EDT Findings: Limited grayscale sonographic evaluation of the anterior abdominal wall for evaluation of abdominal hernias. No sonographic evidence of hernia at the present time. In addition, no abdominal wall hernias were seen on most recent abdominopelvic CT scan dated May 22, 2025. IMPRESSION: No sonographic evidence of abdominal wall hernia. This document has been electronically signed by: Poncho Avitia MD on 10/15/2025 07:10:42
== END 2025-10-14 09:24 | disposition home or self-care (01) ==
LOC: HO.HMGCX 09:23
PROVIDERS: PCP Internal Medicine; Visit Provider Nurse Practitioner Family
DX: K43.9 Ventral hernia without obstruction or gangrene (principal); K42.9 Umbilical hernia without obstruction or gangrene
CPT/HCPCS: 76705

== ENCOUNTER → 2025-10-14 09:27 | Outpatient (BNV) | payer OTHER, SELFPAY | PROVIDERS: PCP Internal Medicine; Visit Provider Radiology Diagnostic Radiology | DX: K43.9 Ventral hernia without obstruction or gangrene (principal) | CPT/HCPCS: 76705 ==